=== PATIENT | female | born 1955 | race Caucasian/White ===

== ENCOUNTER 2016-05-18 10:15 | Inpatient (IN) | payer MEDICARE, MEDICAID ==
[~2016-05-18] VITALS: Ht 157.5 cm; Wt 64.9 kg
--- NOTE | ~2016-05-18 | WRIGHTHP ---
[place], [place] PATIENT HISTORY AND PHYSICAL EXAM NAME: MYKE PAINTER [facility] #: [id number] UNIT #: [id number] ROOM: DOCTOR: DENISE XAVIER MD BIRTHDATE: [birth year] DOS: 05/24/2016 DATE OF SURGERY: 05/24/2016. HISTORY OF PRESENT ILLNESS: This patient is a 60-year-old white female, 3, para 3, status post hysterectomy who first was seen on 02/03/2016, with a chief complaint of urinary problems since 2007. The symptoms according to the patient progressively worsened sometimes with significant urge, sometimes she sits down and cannot void and at other times, she has classic stress incontinence. This is all complicated by the fact that she does have COPD which appears to be reasonably well controlled by the excellent efforts of both her PCP and Dr. Alba. The patient has had an excellent urologic workup. She also had had a history of recurrent urinary tract infections and the cystoscopy, ultrasound of the kidneys and bladder, etc., were all okay per urologist. Actually, the urologist recommended that she see a financial administrator to have her cystocele repaired. Another financial administrator had attempted several pessaries and fittings but without any significant relief or the ability to retain the pessary. The patient had been referred for a discussion and therapy recommendations. She subsequently underwent an exam, which revealed introital laxity. The vulva itself was normal. The vagina was normal, but does have a second degree cystocele. There was no significant enterocele or rectocele noted. Bimanual was normal except for a very tender bladder. At that time, she had a PUF questionnaire, which equaled 17 and as I explained to the patient, we needed to be sure that she did not have any underlying interstitial cystitis before we were to make any effort at correcting the cystocele and stress incontinence. The patient subsequently underwent a KCl challenge and this was quite positive. She has now completed her interstitial cystitis rescues and is feeling much better at least in terms of some of the urgency and the pain aspect, but now she is ready to have the repair in terms of trying to help with her stress incontinence. I thoroughly explained the risks and benefits, indication, potential complications and alternatives, especially in light of her COPD and in light of the fact that at the very least, she has a mixed incontinence issue with both urge and stress. I cannot disagree that there is a first to second degree midline cystocele, which we will correct, but the patient needs to understand that the actual outcome may not be exactly as we all hope, but I certainly think that this will be much better than it has been, and the patient has been adamant since her January appointment to have this vaginal laxity and stress incontinence repaired to the best of our ability. To that end, the patient has signed the consent to having an anterior repair, suprapubic TVT and cystoscopy. I doubt seriously that we will do any type of posterior repair, but I have told the patient that we will examine this aspect once we have done the anterior repair and make a decision at the time of surgery. She stated agreement to this. She will be admitted actually the night before so that Dr. Alba can provide some respiratory therapies for her in preparation for surgery. She has also been cleared by Dr. Alba for the surgery pulmonary shipman. PAST MEDICAL HISTORY: Reveals a history of hysterectomy years ago. She had a negative mammogram in 2016. She has had a negative colonoscopy in the past. She has had 3 pregnancies and 3 vaginal deliveries. She has had right ear surgery, cholecystectomy, appendectomy and as I said, the hysterectomy. [place], [place] PATIENT HISTORY AND PHYSICAL EXAM [facility]: [id number] UNIT #: [id number] ROOM: DOCTOR: DENISE XAVIER MD BIRTHDATE: [birth year] SOCIAL HISTORY: Unbelievably the patient is still smoking even with the COPD, smoking about a half pack per day. She does drink alcohol socially. ALLERGIES: She states an allergy to IODINE. MEDICATIONS: The patient is taking several medications including DAZ 5 mg b.i.d. for anxiety, [place] 7.5 mg up to 4 times a day or p.r.n. for discomfort in her back from some vague back issues that she has. She takes Singulair 10 mg daily for allergies, Nasonex 50 mcg spray left and right 2 times a day again for allergies, Breo inhaler 1 time a day for COPD, Spiriva hand inhaler 1 time per day at bedtime and Ventolin solution 2 puffs every 4 hours p.r.n. REVIEW OF SYSTEMS: Stable. FAMILY HISTORY: Reveals her father from heart disease, her mother from COPD. PHYSICAL EXAMINATION: GENERAL: Pleasant white female. She is 5 feet 2 inches, 140 pounds, BMI 25.6. Blood pressure 130/88. HEENT: Stable. NECK: Stable. LUNGS: Stable. CARDIAC: Stable. PULMONARY: Status is consistent with a COPD, but she is moving air well and does not have any significant rales or rhonchi at this time and is in no significant pulmonary distress. ABDOMEN: Negative. EXTREMITIES: Grossly intact. NEUROLOGIC: Grossly intact. GENITOURINARY: External genitalia does reveal some mild introital laxity. She does have the second degree cystocele as I mentioned with no really significant enterocele or rectocele noted. Bimanual was negative and the bladder is no longer tender following the rescue therapy. Adnexa are not palpable. RECTAL: Negative. LABORATORY DATA: Stool Hematest negative. ASSESSMENT: The patient with a second-degree cystocele, mixed urge and stress urinary incontinence. History of IC now significantly improved, status post therapy, and a history of COPD, who is really quite stable per the efforts of Dr. Sheridan and certainly Dr. Alba. To that end, the patient will be brought into the hospital Tuesday evening, 05/23/2016 in preparation for the surgery on 05/24/2016 and has an anterior repair, suprapubic TVT and cystoscopy. [place], [place] PATIENT HISTORY AND PHYSICAL EXAM NAME: MYKE PAINTER UNIT #: [id number] ROOM: DOCTOR: DENISE XAVIER MD BIRTHDATE: [birth year] DENISE XAVIER MD CM:HISPHYS:PATIENT HISTORY AND PHYSICAL EXAMINATION [phone] LASHELL ALVARADO MD and GOLDEN XAVIER MD 05/19/16 4642 interface
--- NOTE | ~2016-05-18 | O ---
[place], [place] OPERATIVE NOTE [id number] UN[facility] #: [id number] ROOM: 503 DOCTOR: DENISE XAVIER MD BIRTHDATE: [birth year] DOS: 05/24/2016 PREOPERATIVE DIAGNOSES: 1. Second degree cystocele. 2. Stress urinary incontinence and interstitial cystitis. POSTOPERATIVE DIAGNOSES: 1. Second degree cystocele. 2. Stress urinary incontinence and interstitial cystitis. 3. Extremely atrophic vaginal tissue. SURGEON: Dr. Xavier and Dr. Persaud. ANESTHESIA: General. ESTIMATED BLOOD LOSS: Less than 50 mL. REPLACEMENTS: IV fluids, Ofirmev and Ancef. COMPLICATIONS: There were no complications. CONDITION: The patient's condition to recovery stable. OPERATIVE SUMMARY: The patient was taken to the operating room in supine position, general anesthesia, endotracheal intubation, lithotomy position, prepped and draped in routine manner. Mosquera catheter was placed and then weighted speculum was placed. The cystocele was partly anterior cystocele as well as an anterior component of a slight enterocele. Tissue itself was extremely atrophic. We did make a transverse incision just above the old vaginal cuff in that she was status post hysterectomy and then we made an incision perpendicular to this up to a point just inferior to the urethral meatus. We dissected the bladder and the vesicovaginal fascia free from the vaginal mucosa and dissected into the retropubic space bilaterally. I made 2 small suprapubic incisions and introduced our TVT introducers. We then removed the catheter and performed a thorough cystoscopy and revealed no evidence of any foreign body within the bladder. We then placed our TVT tape under no tension. Then made a series of interrupted 2-0 Vicryl sutures obliterated the cystocele and then trimmed the excess anterior vaginal mucosa and then closed this with a running locking 2-0 Vicryl suture. The tissue did tear on a number of occasions when placing the sutures, which necessitated number of additional interrupted 2-0 Vicryl sutures, but good hemostasis was achieved. We then placed Premarin cream and 1 inch iodoform packing. Once this was completed, we did clean the patient off. We then closed the 2 suprapubic incisions with 3-0 Monocryl suture and dressings were placed here as well. Once this was completed, the patient was taken out of lithotomy position, awakened, extubated, and transferred to recovery in stable condition with stable vital signs, good hemostasis, stable sponge and instrument count, and clear and plentiful urine output. [place], [place] OPERATIVE NOTE NAME: INOCENCIOMYKE Federico UNIT #: [id number] ROOM: [facility] DOCTOR: DENISE XAVIER MD BIRTHDATE: [birth year] DENISE XAVIER MD CM:OPRECORD:OPERATIVE NOTE [id number] GOLDEN XAVIER MD 05/24/16 0918 interface
--- NOTE | ~2016-05-18 | CON ---
[place], [place] REPORT OF CONSULTATION [id number] UNIT #: [id number] ROOM: 503 DOCTOR: CHIDI ALVARADO MD,LASHELL BIRTHDATE: [birth year] DOS: 05/24/2016 PULMONARY CONSULTATION EVALUATION AND MANAGEMENT REASON FOR CONSULTATION: For assessment of underlying COPD history with chronic hypoxic respiratory failure. CONSULTATION REQUESTED BY: Dr. Andrzej Lamb. HISTORY OF PRESENT ILLNESS: A 61-year-old white female who has been known with past medical history of end-stage COPD with chronic hypoxic respiratory failure, allergic rhinitis and others, has been currently admitted to the hospital under care of Dr. Andrzej Lamb for this patient on 05/23/2016. The patient was hospitalized for the medical management of bladder prolapse to have the anterior repair of the urinary bladder done. The patient was admitted to the hospital yesterday, started on nebulized bronchodilators. She underwent successful surgery this morning as she was assessed. The patient denies any symptoms of shortness of breath, which was acute. She was complaining of dryness of the mouth and stated that she is thirsty. Denies any sputum expectoration, wheezing or any chest pain. REVIEW OF SYSTEMS: CONSTITUTIONAL: Fatigue and tiredness noted, which was mild. Denies symptoms of fever or chills. EYES: Denies any burning, redness, or tenderness. EARS, NOSE, THROAT: No sore throat, hoarseness, otalgia, postnasal drainage. CARDIOVASCULAR: Denies anginal pain, edema of the lower extremities. GASTROINTESTINAL: Denies dysphagia, nausea, vomiting, diarrhea, abdominal pain, hematemesis, melena, or hematochezia. GENITOURINARY: The patient with current repair of a second degree stress urinary incontinence with interstitial cystitis and second degree cystocele repair. MUSCULOSKELETAL: Denies acute new joint pain, redness, or tenderness. SKIN: No lesions or rashes. CENTRAL NERVOUS SYSTEM: Denies dizziness, headache, diplopia or syncopal episodes. Remaining systems were reviewed with the patient, they were noted all negative. PAST MEDICAL HISTORY: The patient was known with history of: 1. Centrilobular emphysema. 2. Chronic hypoxic respiratory failure, use of oxygen intermittently. 3. History of uncomplicated severe persistent bronchial asthma. 4. Chronic pain syndrome. 5. Chronic nicotine abuse. 6. History of allergic rhinitis. 7. Anemia of chronic disease. 8. Gastroesophageal reflux. PAST SURGICAL HISTORY: [place], [place] REPORT OF CONSULTATION NAME: MYKE PAINTER UNIT #: [id number] ROOM: [facility] DOCTOR: CHIDI ALVARADO MD,LASHELL BIRTHDATE: [birth year] 1. Cholecystectomy. 2. Appendectomy. 3. Abdominal hysterectomy. 4. Bilateral breast biopsies. 5. Past therapeutic bronchoscopies. 6. EGD and colonoscopy. 7. Anterior repair for second degree cystocele for patient that was done on 05/24/2016. SOCIAL HISTORY: The patient lives at home. Currently not . Denies any history of alcohol use or illicit drug use. Tobacco use noted since teenager, pack of cigarettes per day and currently smokes 1-2 cigarettes a day. She was also noted with history of use of the beer, 2 or 3 beers use every day. FAMILY HISTORY: Father at the age of 5656 years old from complication of acute myocardial infarction, history about the mother was unknown. MEDICATIONS: Current administered medication was noted as use of Toradol, Tylenol, ibuprofen and others. All other previous home medication so far has been discontinued post-surgery. DRUG ALLERGIES: Noted as allergy to, 1. IVP DYE. 2. ATROPINE. PHYSICAL EXAMINATION: GENERAL: A 61-year-old female who has been noted currently awake and alert without any distress. The patient's height was recorded 5 feet 2 inches, weight of 143 pounds. BMI 26.3. VITAL SIGNS: Normal temperature, respirations 16-20, heart rate 73-80, blood pressure 121/65-102/50. Intake is 600, the output was not documented so far. The pulse oxygen saturation on room air 96% saturation recorded. HEENT: Examination shows head was atraumatic. Eyes nonicterus. NECK: Supple. CARDIOVASCULAR: S1, S2 audible. LUNGS: Noted with mild decreased breath sounds bilaterally without any wheezing or crackles. ABDOMEN: Soft, status post surgery. EXTREMITIES: Shows no edema, clubbing or cyanosis. CENTRAL NERVOUS SYSTEM: At this time, the patient noted somewhat drowsiness. Unable to perform all the central nervous system examination, however, noted without any focal deficit. SKIN: Visible skin showed no lesions or rashes. MUSCULOSKELETAL: Does not show any acute deformities. LABORATORY DATA: CBC on 05/18/2016 for patient preop was noted as normal. There were no other labs done for the patient recently. IMPRESSON: The patient who has been noted with history of centrilobular emphysema, noted advanced with history of allergic rhinitis, chronic [place], [place] REPORT OF CONSULTATION NAME: MYKE PAINTER UNIT #: [id number] ROOM: [facility] DOCTOR: CHIDI ALVARADO MD,LASHELL BIRTHDATE: [birth year] intermittent hypoxic respiratory failure, status post surgery and intervention. She does not have any signs and symptoms consistent with acute exacerbation of chronic obstructive pulmonary disease. Respiratory status has been noted quite stable for surgical intervention. PLAN OF TREATMENT: Using her home medication as previously ordered. She will be continued on bronchodilator to help mobilize secretion postoperatively. Use of incentive spirometry postoperatively as well. Further treatment changes will be done based on the progression of the illness. Usual care. All other supportive plan of management. Further treatment changes will be done from the pulmonary standpoint based on progression of the illness. LASHELL MURILLO MD CM:CONSTR:REPORT OF CONSULTATION 1100 05/24/16 1301 interface
[2016-05-23 18:30] VITALS: BP 125/63
[2016-05-23] MEDS ORDERED: BREO ELLIPTA 11 EACH IH (18:41)
[2016-05-23] MEDS ORDERED: FLUTICASON0.05 MG/AC NAS (18:42)
[2016-05-23] MEDS ORDERED: VENTOLIN H0.09 MG/AC INH (18:44)
[2016-05-23 20:00] VITALS: BP 121/71
[2016-05-24] VITALS (10 sets, daily range): BP systolic 100–121; BP diastolic 46–73
== END 2016-05-24 13:55 | disposition home or self-care (01) | DRG 748 ==
LOC: SDC 10:15 → 5E 05-23 18:17 → SDC 05-24 07:30 → EDSTATUS 05-24 10:15 → 5E 05-24 13:55
PROC: 0TJB8ZZ Inspection of Bladder, Via Natural or Artificial Opening Endoscopic (ICD-10-PCS; principal; 2016-05-24)
PROC: 0JQC0ZZ Repair Pelvic Region Subcutaneous Tissue and Fascia, Open Approach (ICD-10-PCS; principal; 2016-05-24)
PROC: 0TSC0ZZ Reposition Bladder Neck, Open Approach (ICD-10-PCS; principal; 2016-05-24)
DX: N81.10 Cystocele, unspecified (principal); J96.11 Chronic respiratory failure with hypoxia; J44.1 Chronic obstructive pulmonary disease with (acute) exacerbation; N39.46 Mixed incontinence; K21.9 Gastro-esophageal reflux disease without esophagitis; D63.8 Anemia in other chronic diseases classified elsewhere; F17.210 Nicotine dependence, cigarettes, uncomplicated; G89.4 Chronic pain syndrome; Z90.49 Acquired absence of other specified parts of digestive tract; Z90.710 Acquired absence of both cervix and uterus; Z82.49 Family history of ischemic heart disease and other diseases of the circulatory system; Z88.8 Allergy status to other drugs, medicaments and biological substances; Z91.041 Radiographic dye allergy status

== ENCOUNTER → 2016-05-18 | Outpatient (CLI) | payer MEDICARE, MEDICAID ==
[~2016-05-18] MED LIST: "\\\"BP PILL\\\""; ACCUNEB 0.0.63 MG/3 INH; ADVAIR 250/501 EA INH; ADVAIR DISKUS 21 DSK IH; ALBUTEROL0.09 MG/A2 IH; AMOXICILLIN500 M2 PO; CEFTIN500 M1 PO; CEFUROXIME AXE250 MG PO; CODEINE/GUAIFE120 M1 PO; Ciprofloxacin500 MG PO; DOXYCYCLINE100 M3 PO; FLOMAX0.4 MG PO; HYDROCODONE BIT1 T11 PO; HYDROCODONE/ACE1 T12 PO; HYDROCODONE/ACE1 TAB PO; LEVAQUIN500 M2 PO; LEVOFLOXACIN500 MG PO; MEDROL DOSEPAK4 MG PO; MUCINEX600 MG PO; NASONEX0.05 MG/AC NAS; NASONEX0.05 MG/AC NS; NORCO 7.5-3251 EACH PO; PREDNISONE10 MG PO; PREDNISONE20 MG PO; PYRIDIUM200 M1 PO; SINGULAIR10 MG PO; SPIRIVA -- 3018 MCG PO; SYMBICORT1 AE1 INH; VALIUM5 MG PO; VENTOLIN 02.5 MG/3 M INH; VICO75300 PO; Ventolin 02.5 MG/3 M INH; ZYRTEC10 MG PO
[2016-05-18 09:21] LABS: BASO % 0.4 % (0.0-1.0); EOS # 0.1 10*3/uL (0.0-0.4); HEMATOCRIT 40.2 % (37.0-47.0); HEMOGLOBIN 13.8 g/dl (12.0-16.0); LYMPH # 1.9 10*3/uL (1.3-4.4); LYMPH % 26.9 % (27.0-41.0); MEAN CELL VOLUME 96.6 fl (81.0-99.0); MEAN CORPUSCULAR HGB 33.2 pg (27.0-31.0); MEAN CORPUSCULAR HGB CONC 34.3 g/dl (33.0-37.0); MEAN PLATELET VOLUME 9.4 fl (9.6-12.3); MONO # 0.6 10*3/uL (0.1-1.0); MONO % 7.8 % (3.0-9.0); NEUT # 4.4 10*3/uL (2.3-7.9); NEUT % 62.6 % (47.0-73.0); PLATELET COUNT AUTOMATED 228 10*3/uL (130-400); RED BLOOD COUNT 4.16 10*6/uL (4.10-5.10); RED CELL DISTRI WIDTH 12.9 % (0-14.5)
== END | disposition home or self-care (01) ==
LOC: LAB 08:22
PROVIDERS: Obstetrics & Gynecology
DX: N81.11 Cystocele, midline (principal)

== ENCOUNTER 2016-11-16 10:35 | Inpatient (IN) | payer MEDICARE ==
[~2016-11-16] VITALS: Ht 160 cm; Wt 66.7 kg
--- NOTE | ~2016-11-16 | PR ---
[place], [place] PROGRESS NOTE NAME: MYKE PAINTER UNIT #: [id number] ROOM: 520 DOCTOR: CHIDI ALVARADO MD,LASHELL BIRTHDATE: [birth year] DOS: 11/18/2016 PULMONARY FOLLOWUP NOTE SUBJECTIVE: The patient has been noted with severe cough, which remains persistent with wheezing and shortness of breath unchanged from yesterday. She is n.p.o. past midnight for bronchoscopy. The patient was independently seen and examined in [id number] encounter. The history was confirmed. Physical examination performed. Labs were reviewed. Assessment and management changes of the patient personally made for today's visit. The note done by the medical scheduler was approved. PHYSICAL EXAMINATION: VITAL SIGNS: Noted essentially normal vital signs this morning. The pulse oxygen saturation recorded at 8:00 a.m. on room air was 98% saturation. LUNGS: Noted with decreased breath sounds with expiratory wheezing, no crackles. ABDOMEN: Soft, nontender. LABORATORY DATA: BMP: CO2 of 20, remaining BMP was normal today. CBC was normal. IMPRESSION: The patient with ongoing acute exacerbation of chronic obstructive pulmonary disease, severe nonproductive cough, retained secretions, mucus plugs of the airways and bronchitis, history of low-grade nicotine abuse. PLAN OF TREATMENT: Proceed with bronchoscopy as planned. Any decision changes in treatment if necessary will be done after bronchoscopy. LASHELL MURILLO MD CM:PNTRANS [phone] LASHELL ALVARADO MD 11/19/16 0308 interface
--- NOTE | ~2016-11-16 | PR ---
[place], [place] PROGRESS NOTE NAME: MYKE PAINTER UNIT #: [id number] ROOM: 520 DOCTOR: NATANAEL JAIME DO BIRTHDATE: [birth year] DOS: 11/19/2016 SUBJECTIVE: The patient was seen and evaluated this morning with Dr. Alba. The patient is alert, awake and responsive. No nausea, vomiting, diarrhea or lightheadedness. The patient states that her shortness of breath has improved and her cough has improved in bronchoscopy. OBJECTIVE: VITAL SIGNS: Temperature 97.8, pulse 83, respiratory rate 20, blood pressure 134/79 and pulse ox 97 on room air. HEENT: No changes. NECK: Supple. CARDIOVASCULAR: S1, S2 audible. RESPIRATORY: Decreased breath sounds at the bases. No rales, rhonchi or wheezing noted. EXTREMITIES: No clubbing, edema or cyanosis. SKIN: Warm and dry. LABORATORY DATA: White cell count of 4.8, hemoglobin 12.6, platelets 211. MICROBIOLOGY: Bronchial fungal, SONAL and fungal culture final shows no fungal elements. Bronchial culture and Gram stain, Gram stain preliminary shows few white blood cells, few epithelial, few gram-positive cocci in pairs and chains, grew gram-negative bacilli. Routine culture preliminary shows normal charels. ASSESSMENT: 1. Acute respiratory failure, improving. 2. Acute exacerbation of chronic obstructive pulmonary disease, improving. 3. Acute tracheobronchitis. 4. Severe nonproductive cough, improving. 5. Status post bronchoscopy yesterday. PLAN OF TREATMENT: 1. The patient will be continued on Levaquin, Mucinex, DuoNebs and steroids. 2. Await bronch cultures. 3. Possible discharge tomorrow. 4. Tobacco. The patient should abstain from tobacco. 5. Supportive care. NATANAEL JAIME DO [place], [place] PROGRESS NOTE NAME: MYKE PAINTER UNIT #: [id number] ROOM: 520 DOCTOR: NATANAEL JAIME DO BIRTHDATE: [birth year] LASHELL ALBA MD CM:MARTHA [phone] NATANAEL JAIME DO 11/19/16 1117 interface
--- NOTE | ~2016-11-16 | PROC NOTE ---
[place], [place] PROCEDURE NOTE NAME: MYKE PAINTER UNIT #: [id number] ROOM: 520 DOCTOR: CHIDI ALVARADO MD,LASHELL BIRTHDATE: [birth year] DOS: 11/18/2016 PREOPERATIVE DIAGNOSES: Persistent severe ineffective cough, sputum expectoration with wheezing and shortness of breath. POSTOPERATIVE DIAGNOSES: Removal of large plugs of mucus from the endobronchial tree bilaterally. There were no endobronchial obstructive lesions. PROCEDURE DESCRIPTION: Informed consent obtained for the patient. The patient was brought to the OR and placed in supine position. Conscious sedation administered by the Anesthesia Department. After achieving appropriate sedation, airway introduced into the mouth. Bronchoscope advanced into the airway into laryngeal area. Epiglottis and vocal cords were seen. The vocal cords were moving symmetrically with movements. Bronchoscope advanced through the vocal cord and tracheal lumen. Tracheal lumen noted with copious amount of thick plugs of the mucus with purulent secretion mixture suctioned out of the gaby level. Gaby noted sharp. Moderate impaction of the thick plugs of the mucus noted right upper, right middle, left upper, lingular lower lobe bronchi. All secretions suctioned out and sent for cultures. Procedure well tolerated by the patient without difficulty. Postoperative findings will be discussed with the patient once the patient recovers the effects of acute sedation. LASHELL MURILLO MD CM:PROCNOTE:PROCEDURE NOTE [id number] LASHELL ALVARADO MD
--- NOTE | ~2016-11-16 | PR ---
[place], [place] PROGRESS NOTE NAME: MYKE PAINTER UNIT #: [id number] ROOM: 520 DOCTOR: CHIDI ALVARADO MD,LASHELL BIRTHDATE: [birth year] DOS: 11/20/2016 SUBJECTIVE: The patient has been noted comfortable at this time. The shortness of breath and cough all symptoms have been improving progressively. OBJECTIVE: VITAL SIGNS: Normal temperature, respiratory rate 20, heart rate 83, blood pressure 151/89. The pulse oxygen saturation on room air was noted as 96% saturation. HEENT: Examination shows no acute change. NECK: Supple. CARDIOVASCULAR: S1, S2 audible. LUNGS: Noted without any wheezing or crackles. Breath sounds are noted [id number] decreased bilaterally. ABDOMEN: Soft, nontender. IMPRESSION: The patient was being currently noted with resolution of acute exacerbation of chronic obstructive pulmonary disease, progressively with resolving acute bronchitis. PLAN OF TREATMENT: The patient could be discharged home on oral medications as antibiotics and tapering prednisone. Outpatient followup for this patient to be scheduled post-discharge. LASHELL MURILLO MD CM:PNTRANS [phone] LASHELL ALVARADO MD 11/22/16 0516 interface
--- NOTE | ~2016-11-16 | CON ---
[place], [place] REPORT OF CONSULTATION NAME: MYKE PAINTER [facility] #: [id number] UNIT #: [id number] ROOM: 520 DOCTOR: LASHELL RAMIREZ MD BIRTHDATE: [birth year] DOS: 11/17/2016 REQUESTING PHYSICIAN: Hospitalist services. REASON FOR CONSULTATION: To assess the patient for ongoing acute respiratory complaints. HISTORY OF PRESENT ILLNESS: A 61-year-old female who has been known to me from the past. The patient stated that she has developed increased respiratory symptoms in the last few days, started with upper respiratory tract infection noted with progressive worsening of the respiratory symptom. She has been noted with symptoms of increased cough which became nonproductive at this time and described to be quite severe. She has not been able to sleep. The cough has been present with lying down as well as sitting up position. The cough has been noted episodic. The coughing was associated with symptoms of wheezing as well as increased shortness of breath. She was complaining of generalized fatigue. There are no symptoms of hemoptysis. REVIEW OF SYSTEMS: CONSTITUTIONAL: Fatigue and tiredness noted without symptoms of fever or chills. EYES: Denies any burning, redness, or tenderness. EARS, NOSE, AND THROAT: No sore throat, hoarseness, otalgia, postnasal drainage. CARDIOVASCULAR: Denies anginal pain, edema or pain of the lower extremities. GASTROINTESTINAL: Denies dysphagia, nausea, vomiting, diarrhea, abdominal pain, hematemesis, melena, or hematochezia. SKIN: Denies lesions or rashes. MUSCULOSKELETAL: Denies acute joint pain, redness, or tenderness. Remaining systems were reviewed, they were noted all negative. PAST MEDICAL HISTORY: 1. Advanced centrilobular emphysema. 2. Chronic hypoxic respiratory failure. 3. Generalized anxiety disorder. 4. 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 5. History of allergic rhinitis. 6. Anemia of chronic disease. 7. Gastroesophageal reflux. 8. Uncomplicated severe persistent bronchial asthma. PAST SURGICAL HISTORY: 1. Cholecystectomy. 2. Appendectomy. 3. Abdominal hysterectomy. 4. Bilateral breast biopsy, which were benign. 5. Past therapeutic bronchoscopies. 6. EGD and colonoscopy. 7. Anterior repair of the patient's second degree cystocele on 05/24/2016. [place], [place] REPORT OF CONSULTATION NAME: MYKE PAINTER UNIT #: [id number] ROOM: 520 DOCTOR: CHIDI ALVARADO MD,LASHELL BIRTHDATE: [birth year] SOCIAL HISTORY: The patient lives at home, currently not , lives with a boyfriend. Denies history of alcohol use or any illicit drug. Tobacco use was noted since teenager, pack of cigarettes per day. Currently smoking 1-3 cigarettes a day. The patient also uses 2-3 of beers a day. FAMILY HISTORY: The patient's father at age 56 of complications of acute myocardial infarction, history about mother was unknown. DRUG ALLERGIES: NOTED ALLERGIES TO IVP DYE AND ATROPINE. CURRENT MEDICATIONS: 1. Noted use of Singulair, Mucinex 1200 mg b.i.d. 2. Zyrtec. 3. Lovenox 40 mg, DVT prophylaxis. 4. Fluticasone. 5. Solu-Medrol 60 mg IV b.i.d. 6. DuoNeb q.4 hours. 7. Levaquin intravenously and other p.r.n. medications administration. PHYSICAL EXAMINATION: GENERAL: This is a 61-year-old female who has been currently noted awake and alert without any distress, severe coughing noted at the time of the assessment intermittently without any sputum expectoration. VITAL SIGNS: Height of 5 feet 3 inches, weight of 147 pounds. The vital signs of the patient which were recorded showed the temperature noted normal, respiratory rate 18-20, heart rate of 103-95, blood pressure 147/85-134/61. HEENT: Examination shows head was atraumatic. Eyes, no icterus. Well-fitting dentures. NECK: Supple. CARDIOVASCULAR SYSTEM: S1, S2 audible. LUNGS: Diffuse reduction in breath sounds with moderate expiratory wheezing. No crackles. ABDOMEN: Soft, nontender. LABORATORY DATA: CMP of patient that was done yesterday showed normal BUN and creatinine at this time. Sodium 129. CO2 of 20. The CBC of the patient that was done shows hemoglobin and hematocrit was normal. WBC count was normal. The chest x-ray of the patient that was done on 11/16/2016, was noted without any acute abnormalities, severe COPD, changes of emphysema were noted. Lactic acid 2.5 on admission and later on noted 1.8. PT and PTT of the patient this morning was noted as normal. BMP for this patient was noted as normal. IMPRESSION: 1. The patient will be currently admitted to the hospital noted with worsening acute respiratory symptoms, acute exacerbation of chronic obstructive pulmonary disease, acute tracheobronchitis, severe nonproductive cough, suspected mucus impaction of the major airways. 2. Past history noted for use of beer and low grade tobacco use as well. PLAN OF MANAGEMENT: The patient has been currently planned for fiberoptic [place], [place] REPORT OF CONSULTATION NAME: MYKE PAINTER UNIT #: [id number] ROOM: [facility] DOCTOR: CHIDI ALVARADO MD,LASHELL BIRTHDATE: [birth year] bronchoscopy, which will be done tomorrow morning. The risks and benefits were told to the patient. She is agreeable for the procedure. Continue current dose of steroids, bronchodilators, and antibiotics. No changes need to be made. Abstinence from tobacco and alcohol use was recommended. Other supportive therapy, plan and management and care. Additional treatment changes to be made for this patient based on progression of the illness. LASHELL MURILLO MD CM:CONSTR:REPORT OF CONSULTATION 1210 11/18/16 0613 interface
--- NOTE | ~2016-11-16 | PR ---
[place], [place] PROGRESS NOTE NAME: MYKE PAINTER UNIT #: [id number] ROOM: 520 DOCTOR: NATANAEL JAIME DO BIRTHDATE: [birth year] DOS: 11/18/2016 SUBJECTIVE: The patient was seen and evaluated this morning with Dr. Alba. The patient is alert, awake and responsive. No nausea, vomiting, diarrhea, or lightheadedness. The patient denies of mild cough. OBJECTIVE: VITAL SIGNS: Temperature normal, pulse of 102, respiratory rate 20, blood pressure of 140/72, pulse of 94 on room air. HEENT: Shows no changes. NECK: Supple. CARDIOVASCULAR: S1, S2 audible. RESPIRATORY: Shortness of breath, cough noted. LUNGS: Diminished at the bases. Mild expiratory wheezing. EXTREMITIES: No clubbing, no edema or cyanosis. SKIN: Warm and dry. LABORATORY DATA: BUN 10, creatinine 0.87. White cell of 4.8, hemoglobin of 12.6, platelets of 211. Bronchoscopy cultures are pending. ASSESSMENT: 1. Acute respiratory failure. 2. Acute exacerbation of chronic obstructive pulmonary disease. 3. Acute tracheobronchitis. 4. Severe nonproductive cough. 5. Suspected mucus infection in major airways, improved post bronchoscopy. 6. Status post bronchoscopy this morning. PLAN OF TREATMENT: 1. The patient will be continued on current dose of steroids, bronchodilators and antibiotics. 2. Abstinence from tobacco and alcohol recommended. 3. The patient is status post bronchoscopy, which showed mucus plug and tracheobronchitis. 4. Supportive care. NATANAEL JAIME DO [place], [place] PROGRESS NOTE NAME: MYKE PAINTER UNIT #: [id number] ROOM: 520 DOCTOR: NATANAEL JAIME DO BIRTHDATE: [birth year] LASHELL ALBA MD CM:PNBENEDICT [id number] [id number] NATANAEL JAIME DO 11/18/16 1602 interface
--- NOTE | ~2016-11-16 | PR ---
[place], [place] PROGRESS NOTE NAME: MYKE PAINTER UNIT #: [id number] ROOM: 520 DOCTOR: CHIDI ALVARADO MD,LASHELL BIRTHDATE: [birth year] DOS: 11/19/2016 SUBJECTIVE: The patient was independently seen and examined on 11/19/2016. History was performed. Physical exam was performed. All the labs were reviewed. The assessment, management personally made for today's visit. The note done by the senior medical billing specialist was approved. The patient has been noted with reduction of respiratory symptom after bronchoscopy. Findings of the bronchoscopy were discussed with the patient today in detail. She has been continued on intravenous antibiotics, bronchodilators and corticosteroids. OBJECTIVE: VITAL SIGNS: For the patient which were recorded shows normal temperature, respiratory rate of 20, heart rate 81, blood pressure 127/71, pulse oxygen saturation on room air was 93% saturation. HEENT: Showed no acute change. NECK: Supple. CARDIOVASCULAR: S1, S2 audible. LUNGS: The patient was noted without any wheeze or crackles at this time. Breath sounds are noted moderately decreased bilaterally. There were no crackles. ABDOMEN: Soft, nontender. LABORATORY DATA: The cultures of the bronchial washing preliminary was noted as normal charles. The final culture results was pending of the bronchial washings of yesterday. Gram stain was noted for this patient as few white blood cells, epithelial cells, gram-positive cocci in pairs and chains and gram-negative bacilli. PLAN OF MANAGEMENT: Reduced Solu-Medrol 40 mg b.i.d. from today. Consider possible discharge in the morning based on the culture results. Continuation of bronchodilator treatment plan and management as well. Usual care. Supportive therapy, plan of care and treatments. LASHELL MURILLO MD CM:PNTRANS [id number] [id number] LASHELL ALVARADO MD 11/20/16 0044 interface
--- NOTE | ~2016-11-16 | EKG ---
[place], [place] ELECTROCARDIOGRAM REPORT NAME: MYKE PAINTER UNIT #: [id number] ROOM: [facility] DOCTOR: CHIDI ALVARADO MD,LASHELL BIRTHDATE: [birth year] DOS: 11/16/2016 ELECTROCARDIOGRAM REPORT TIME: 11:52 AM. The heart rate was noted at 96 beats per minute without any abnormalities noted in the EKG otherwise. LASHELL MURILLO MD CM:EKGRPT:ELECTROCARDIOGRAM REPORT 1249 1455 LASHELL ALVARADO MD
[~2016-11-16 10:35] MED LIST changes: +BREO ELLIPTA 11 EACH IH; +FLUTICASON0.05 MG/AC NAS; +VENTOLIN H0.09 MG/AC INH
[2016-11-16 10:44] VITALS: BP 147/85
[2016-11-16 11:10] LABS: BASO % 0.4 % (0.0-1.0); EOS % 0.2 % (1.0-4.0); HEMATOCRIT 39.7 % (37.0-47.0); HEMOGLOBIN 13.6 g/dl (12.0-16.0); LYMPH # 1.3 10*3/uL (1.3-4.4); LYMPH % 24.4 % (27.0-41.0); MEAN CELL VOLUME 97.5 fl (81.0-99.0); MEAN CORPUSCULAR HGB 33.4 pg (27.0-31.0); MEAN CORPUSCULAR HGB CONC 34.3 g/dl (33.0-37.0); MEAN PLATELET VOLUME 9.2 fl (9.6-12.3); MONO # 0.7 10*3/uL (0.1-1.0); MONO % 12.3 % (3.0-9.0); NEUT # 3.3 10*3/uL (2.3-7.9); NEUT % 62.5 % (47.0-73.0); PLATELET COUNT AUTOMATED 196 10*3/uL (130-400); RED BLOOD COUNT 4.07 10*6/uL (4.10-5.10); RED CELL DISTRI WIDTH 12.9 % (0-14.5); WHITE BLOOD COUNT 5.3 10*3/uL (4.8-10.8)
[2016-11-16 11:21] LABS: ACT PARTIAL THROMBO TIME 27.6 SECONDS (20.8-31.5); INTERNATIONAL NORM RATIO 0.9 (2.0-3.5)
[2016-11-16 11:26] LABS: ALBUMIN 3.4 gm/dl (3.1-4.5); ALKALINE PHOSPHATASE 105 U/L (45-117); BUN 6 mg/dl (7-24); CHLORIDE 96 mmol/L (98-107); CREATININE 0.76 mg/dL (0.55-1.02); LIPASE 93 U/L (73-393); MAGNESIUM 1.9 mg/dL (1.5-2.1); POTASSIUM 3.5 mmol/L (3.5-5.1); SGOT/AST 34 IU/L (3-35); SGPT/ALT 47 U/L (12-78); SODIUM 129 mmol/L (136-145); TOTAL PROTEIN 7.1 gm/dL (6.4-8.2); TROPONIN I < 0.015 ng/ml (<0.045)
[2016-11-16 12:22] VITALS: BP 137/75
[2016-11-16 13:14] VITALS: BP 134/73
[2016-11-16 13:15] VITALS: BP 134/73
[2016-11-16 17:03] VITALS: BP 133/65
[2016-11-16 20:34] VITALS: BP 130/69
[2016-11-17] VITALS: BP 126/72
[2016-11-17 07:17] LABS: HEMATOCRIT 37.3 % (37.0-47.0); HEMOGLOBIN 12.5 g/dl (12.0-16.0); LYMPH % 35.8 % (27.0-41.0); MEAN CELL VOLUME 98.9 fl (81.0-99.0); MEAN CORPUSCULAR HGB 33.2 pg (27.0-31.0); MEAN CORPUSCULAR HGB CONC 33.5 g/dl (33.0-37.0); MEAN PLATELET VOLUME 9.2 fl (9.6-12.3); MONO # 0.4 10*3/uL (0.1-1.0); MONO % 13.6 % (3.0-9.0); NEUT # 1.3 10*3/uL (2.3-7.9); NEUT % 50.6 % (47.0-73.0); PLATELET COUNT AUTOMATED 184 10*3/uL (130-400); RED BLOOD COUNT 3.77 10*6/uL (4.10-5.10); WHITE BLOOD COUNT 2.7 10*3/uL (4.8-10.8)
[2016-11-17 07:50] LABS: ACT PARTIAL THROMBO TIME 22.3 SECONDS (20.8-31.5); INTERNATIONAL NORM RATIO 0.9 (2.0-3.5)
[2016-11-17 07:58] LABS: BUN 7 mg/dl (7-24); CHLORIDE 109 mmol/L (98-107); CHOLESTEROL 185 mg/dL (<200); CREATININE 0.78 mg/dL (0.55-1.02); FREE T4 0.63 ng/dl (0.76-1.46); HDL CHOLESTEROL 71 mg/dl (40-60); LDL CHOLESTEROL 103 mg/dL (9-159); MAGNESIUM 2.3 mg/dL (1.5-2.1); POTASSIUM 3.9 mmol/L (3.5-5.1); TRIGLYCERIDES 57 mg/dl (<150); VLDL CHOLESTEROL 11 mg/dL (6-40)
[2016-11-17 08:00] VITALS: BP 134/61
[2016-11-17 08:08] LABS: SODIUM 141 mmol/L (136-145)
[2016-11-17 12:00] VITALS: BP 128/60
[2016-11-17 16:00] VITALS: BP 118/76
[2016-11-17 20:00] VITALS: BP 118/70
[2016-11-18] VITALS (8 sets, daily range): BP systolic 103–144; BP diastolic 57–94
[2016-11-18 08:19] LABS: HEMOGLOBIN 12.6 g/dl (12.0-16.0); LYMPH % 20.6 % (27.0-41.0); MEAN CORPUSCULAR HGB 34.1 pg (27.0-31.0); MEAN CORPUSCULAR HGB CONC 34.1 g/dl (33.0-37.0); MEAN PLATELET VOLUME 9.4 fl (9.6-12.3); MONO # 0.4 10*3/uL (0.1-1.0); MONO % 9.1 % (3.0-9.0); NEUT # 3.4 10*3/uL (2.3-7.9); NEUT % 69.7 % (47.0-73.0); PLATELET COUNT AUTOMATED 211 10*3/uL (130-400); RED CELL DISTRI WIDTH 13.2 % (0-14.5); WHITE BLOOD COUNT 4.8 10*3/uL (4.8-10.8)
[2016-11-18 08:50] LABS: BUN 10 mg/dl (7-24); CHLORIDE 110 mmol/L (98-107); CREATININE 0.87 mg/dL (0.55-1.02); POTASSIUM 4.2 mmol/L (3.5-5.1); SODIUM 142 mmol/L (136-145)
[2016-11-19] VITALS: BP 127/71
[2016-11-19 08:00] VITALS: BP 134/79
[2016-11-19 12:00] VITALS: BP 120/83
[2016-11-19 16:00] VITALS: BP 142/66
[2016-11-19 17:06] LABS: ACID FAST SMEAR Negative (.); ACID FAST SPEC PROCESSING Concentration (.)
[2016-11-19 20:00] VITALS: BP 119/62
[2016-11-20] VITALS: BP 135/64
[2016-11-20 08:00] VITALS: BP 151/89
[2016-11-20] MEDS ORDERED: LEVAQUIN500 M2 PO (10:25)
[2016-11-20] MEDS ORDERED: PREDNISONE10 MG PO (10:25)
[2016-11-20] MEDS ORDERED: VITAMIN D31000 UNIT PO (11:51)
== END 2016-11-20 11:50 | disposition home or self-care (01) | DRG 871 ==
LOC: ED 10:35 → EDHOLD 12:09 → 5E 12:09
PROVIDERS: Emergency Medicine; Family Medicine; Internal Medicine; Internal Medicine Critical Care Medicine; ADMIT Internal Medicine
PROC: 0BC88ZZ Extirpation of Matter from Left Upper Lobe Bronchus, Via Natural or Artificial Opening Endoscopic (ICD-10-PCS; principal; 2016-11-18)
PROC: 0BC78ZZ Extirpation of Matter from Left Main Bronchus, Via Natural or Artificial Opening Endoscopic (ICD-10-PCS; principal; 2016-11-18)
PROC: 0BC48ZZ Extirpation of Matter from Right Upper Lobe Bronchus, Via Natural or Artificial Opening Endoscopic (ICD-10-PCS; principal; 2016-11-18)
PROC: 0BC38ZZ Extirpation of Matter from Right Main Bronchus, Via Natural or Artificial Opening Endoscopic (ICD-10-PCS; principal; 2016-11-18)
PROC: 0BCB8ZZ Extirpation of Matter from Left Lower Lobe Bronchus, Via Natural or Artificial Opening Endoscopic (ICD-10-PCS; principal; 2016-11-18)
PROC: 0BC98ZZ Extirpation of Matter from Lingula Bronchus, Via Natural or Artificial Opening Endoscopic (ICD-10-PCS; principal; 2016-11-18)
PROC: 0BC68ZZ Extirpation of Matter from Right Lower Lobe Bronchus, Via Natural or Artificial Opening Endoscopic (ICD-10-PCS; principal; 2016-11-18)
PROC: 0BC58ZZ Extirpation of Matter from Right Middle Lobe Bronchus, Via Natural or Artificial Opening Endoscopic (ICD-10-PCS; principal; 2016-11-18)
PROC: 0BC18ZZ Extirpation of Matter from Trachea, Via Natural or Artificial Opening Endoscopic (ICD-10-PCS; principal; 2016-11-18)
DX: A41.9 Sepsis, unspecified organism (principal); J18.9 Pneumonia, unspecified organism; J96.00 Acute respiratory failure, unspecified whether with hypoxia or hypercapnia; J44.1 Chronic obstructive pulmonary disease with (acute) exacerbation; J44.0 Chronic obstructive pulmonary disease with (acute) lower respiratory infection; E87.1 Hypo-osmolality and hyponatremia; F41.1 Generalized anxiety disorder; K21.9 Gastro-esophageal reflux disease without esophagitis; J45.50 Severe persistent asthma, uncomplicated; R65.20 Severe sepsis without septic shock; E87.8 Other disorders of electrolyte and fluid balance, not elsewhere classified; J20.9 Acute bronchitis, unspecified; E83.39 Other disorders of phosphorus metabolism; F17.210 Nicotine dependence, cigarettes, uncomplicated; E83.41 Hypermagnesemia; Z71.6 Tobacco abuse counseling; Z90.710 Acquired absence of both cervix and uterus; Z90.49 Acquired absence of other specified parts of digestive tract; Z82.49 Family history of ischemic heart disease and other diseases of the circulatory system; Z83.6 Family history of other diseases of the respiratory system; Z91.041 Radiographic dye allergy status; Z88.8 Allergy status to other drugs, medicaments and biological substances; Z79.899 Other long term (current) drug therapy

== ENCOUNTER 2017-02-19 20:55 | Inpatient (IN) | payer MEDICARE ==
[~2017-02-19] VITALS: Ht 160 cm; Wt 70.3 kg
--- NOTE | ~2017-02-19 | PROC NOTE ---
[place], [place] PROCEDURE NOTE NAME: MYKE PAINTER UNIT #: [id number] ROOM: 521 DOCTOR: CHIDI ALVARADO MD,LASHELL BIRTHDATE: [birth year] DOS: 02/24/2017 PROCEDURE: Bronchoscopy. PREOPERATIVE DIAGNOSES: Persistent severe nonproductive cough with musculoskeletal pain. The patient unable to expectorate sputum. Ongoing symptoms of tracheobronchitis with exacerbation of chronic obstructive pulmonary disease and wheezing. POSTOPERATIVE DIAGNOSES: The patient with evidence of [id number] impaction of the mucus plugs noted endobronchial tree bilaterally with finding of acute tracheobronchitis. No endobronchial obstructive lesion. BLOOD LOSS: None. PROCEDURE DESCRIPTION: Informed consent was obtained for the patient. She was brought to the OR and placed in supine position. Conscious sedation administered by the Anesthesia Department. After achieving proper sedation, airway introduced into the mouth. Bronchoscope advanced to the airway into the laryngeal area. Epiglottis vocal cord seen, which were moving symmetrically with movements. Bronchoscope advanced to the vocal cord and tracheal lumen. Tracheal lumen noted with moderate amount of thick mucoid secretion with some purulent secretions suctioned out the britni level. Right upper, right middle, right lower, left upper, lingular lower lobe bronchi were all examined. The mucus impaction clear of endobronchial tree bilaterally. The patient without any difficulty. Procedure was well tolerated by the patient. Postoperative finding was discussed with one of the patient's daughter in detail in the recovery room. No change in the treatment at this time will be recommended with the current bronchoscopy. LASHELL MURILLO MD CM:PROCNOTE:PROCEDURE NOTE 1248 1653 LASHELL ALVARADO MD
--- NOTE | ~2017-02-19 | EKG ---
[place], [place] ELECTROCARDIOGRAM REPORT NAME: MYKE PAINTER UNIT #: [id number] ROOM: 521 DOCTOR: CHIDI ALVARADO MD,LASHELL BIRTHDATE: [birth year] DOS: 02/23/2017 TIME: 10:25 a.m. Normal sinus rhythm noted with heart rate of 62 beats per minute without any acute electrocardiographic abnormality. The EKG would be considered normal. LASHELL MURILLO MD CM:EKGRPT:ELECTROCARDIOGRAM REPORT 1818 1859 LASHELL ALVARADO MD
--- NOTE | ~2017-02-19 | PR ---
[place], [place] PROGRESS NOTE NAME: MYKE PAINTER UNIT #: [id number] ROOM: 521 DOCTOR: CHIDI ALVARADO MD,LASHELL BIRTHDATE: [birth year] DOS: 02/25/2017 SUBJECTIVE: The patient had a bronchoscopy done yesterday with significant reduction and improvement of the respiratory symptoms. She has not been noted symptoms of chest pain or abdominal pain. Coughing has been noted markedly improved as well. OBJECTIVE: VITAL SIGNS: For the patient which has been recorded showed normal temperature, respiratory rate 19, heart rate 73, blood pressure 157/77, pulse oxygen saturation on 2 L nasal cannula with 96% saturation. HEENT: No acute change. NECK: Supple. CARDIOVASCULAR: S1, S2 audible. LUNGS: The patient was noted with mild expiratory wheezing at this time with moderate decreased breath sounds otherwise. ABDOMEN: Soft, nontender. Bowel sounds present. EXTREMITIES: Without any acute edema. LABORATORY DATA: Cultures of the bronchial washing preliminary noted with light growth of yeast. The Gram stain reviewed and noted with few white blood cell, few gram-positive cocci in clusters. Creatinine this morning was noted normal. CBC of the patient this morning essentially normal except elevation of MCV. IMPRESSION: Resolving acute tracheobronchitis, marked improvement and reduction of respiratory symptoms are noticed after the current bronchoscopy that was done yesterday. PLAN OF MANAGEMENT: Continue corticosteroids, bronchodilator, and antibiotics. Consideration for home discharge in the morning. LASHELL MURILLO MD CM:MARTHA [id number] LASHELL ALVARADO MD 02/26/17 0721 interface
--- NOTE | ~2017-02-19 | PR ---
[place], [place] PROGRESS NOTE NAME: MYKE PAINTER UNIT #: [id number] ROOM: 521 DOCTOR: CHIDI ALVARADO MD,LASHELL BIRTHDATE: [birth year] DOS: 02/21/2017 SUBJECTIVE: She has been noted comfortable at this time, still noted a cough with some sputum expectoration mostly noted nonproductive cough, shortness breath and wheezing was still described. OBJECTIVE: VITAL SIGNS: Normal temperature, respiratory rate 18, heart rate 107, blood pressure 135/76. Intake for the patient was recorded 1720 and 420 mL. Pulse oxygen saturation on 2 liters 96% saturation. HEAD, EARS, EYES, NOSE AND THROAT: No acute change. NECK: Supple. CARDIOVASCULAR: S1, S2 audible. LUNGS: Moderate decreased breath sound, diffuse expiratory wheezing, no crackles. ABDOMEN: Soft, nontender. EXTREMITIES: Without any edema. LABORATORY DATA: Culture of the sputum for the patient to normal charles from yesterday. The Gram stain of the patient 02/20/2017, moderate gram-positive cocci with epithelial cells and few gram-positive cocci in pairs and chains. BMP this morning, glucose 133, remaining electrolytes normal. CBC was normal. IMPRESSION: The patient with ongoing acute exacerbation of chronic obstructive pulmonary disease, acute tracheobronchitis without any significant change from yesterday, still remains symptomatic. The patient with ongoing wheezing. Mild steroid-induced hyperglycemia. PLAN OF MANAGEMENT: Monitoring the culture results of the sputum. Continuation of bronchodilator with oxygen supplementation, other plan of management as already ordered. Supportive care, other therapy, plan of management and care. LASHELL MURILLO MD CM:PNTRANS 1436 1526 LASHELL ALVARADO MD 02/21/17 1526 interface
--- NOTE | ~2017-02-19 | CON ---
[place], [place] REPORT OF CONSULTATION [id number] UN[facility] #: [id number] ROOM: 521 DOCTOR: LASHELL RAMIREZ MD BIRTHDATE: [birth year] DOS: 02/20/2017 The consultation requested by Hospitalist Service. REASON FOR CONSULTATION: For assessment of recurrence of respiratory symptoms of increased coughing, chest congestion and others. HISTORY OF PRESENT ILLNESS: A 61-year-old female patient has been known to me with past history of severe COPD, centrilobular emphysema, and low grade nicotine abuse. The patient presented to the Emergency Room and has been admitted to this hospital on 02/20/2017. She stated having symptoms of increased shortness of breath, associated with coughing with intermittent scant sputum expectoration, yellowish in color. Most of the cough has been noted as nonproductive except the chest congestion. She also described symptoms of wheezing, shortness of breath occurring with minimal exertion, walking on level surface. Denies any edema of the lower extremity. Denies symptoms of chest pain or any hemoptysis. REVIEW OF SYSTEMS: CONSTITUTIONAL: Noted with symptoms of fatigue, tiredness. Denied symptoms of fever or chills. Denies any abnormal weight loss. EYES: Denies any burning, redness, discharge or pain. EARS, NOSE, AND THROAT: No sore throat, hoarseness, otalgia, postnasal drainage or epistaxis. CARDIOVASCULAR: Denies angina pain, edema or pain of the lower extremity. GASTROINTESTINAL: Denies dysphagia, nausea, vomiting, diarrhea, abdominal pain, hematemesis, melena, or hematochezia. SKIN: Denies any lesions or rashes. CENTRAL NERVOUS SYSTEM: Denies seizures, tingling sensation or abnormal focal weakness. Remaining systems were reviewed, they were noted all negative. PAST MEDICAL HISTORY: 1. Noted with hospitalization in this hospital previously for acute exacerbation of chronic obstructive pulmonary disease, acute tracheobronchitis, and management was done in October 2016. The patient did have a therapeutic bronchoscopy at that time. 2. Uncomplicated severe persistent bronchial asthma. 3. Past history of advanced centrilobular emphysema/COPD and acute chronic hypoxic respiratory failure, use of oxygen on 2 liters nasal cannula with exertion and sleep. 4. History of partial alcohol and low grade nicotine dependence at this time. 5. Allergic rhinitis. 6. History of anemia of chronic disease. 7. Gastroesophageal reflux. PAST SURGICAL HISTORY: 1. Cholecystectomy. 2. Appendectomy. 3. Hysterectomy. [place], [place] REPORT OF CONSULTATION NAME: MYKE PAINTER UNIT #: [id number] ROOM: 521 DOCTOR: LASHELL RAMIREZ MD BIRTHDATE: [birth year] 4. Bilateral breast biopsies. 5. Therapeutic bronchoscopies in the past, last in October 2016. 6. EGD and colonoscopy. 7. Anterior repair of the patient's second degree cystocele on 05/24/2016. SOCIAL HISTORY: The patient is currently , lives at home with her boyfriend. Denies history of alcohol use, illicit drug use or any history of occupation related pulmonary exposure. She drinks 1-2 beers a day, still smokes about 3-4 cigarettes a day, used to smoke from teenage, at least a pack of cigarettes per day for many years until decreasing the current smoking to few cigarettes a day. FAMILY HISTORY: The patient's father at age 56 years of complication of myocardial infarction, history about mother unknown. HOME MEDICATIONS: 1. Breo Ellipta 100/5 one inhalation daily. 2. Incruse Ellipta 1 inhalation daily. 3. Flonase 1 spray each nostril b.i.d. 4. Zyrtec 10 mg p.o. daily. 5. Albuterol sulfate 2.5 mg p.r.n. with the nebulizer use 4 times a day for shortness of breath or other symptoms. DRUG ALLERGY HISTORY: ALLERGIES TO, 1. IVP DYE. 2. ATROPINE. PHYSICAL EXAMINATION: GENERAL: A 61-year-old female who has been noted currently awake and alert. Height of 5 feet 3 inches, weight 155 pounds, BMI 27.4. VITAL SIGNS: Normal temperature, respiratory rate range between 20-29, heart rate of 78-120, mild sinus tachycardia, blood pressure 146/76 to 138/68. Pulse oxygen saturation on 2 liters nasal cannula 96% saturation recorded. HEENT: Examination shows head was atraumatic. Eyes nonicterus. NECK: Supple. CARDIOVASCULAR: S1, S2 audible. LUNGS: General reduction in the breath sounds are noted in the lungs bilaterally with moderate expiratory wheezing without any crackles. ABDOMEN: Flat, soft, nontender. Bowel sounds present. CENTRAL NERVOUS SYSTEM: Cranial nerves 2-12 intact. No focal deficit. MUSCULOSKELETAL: No deformities visible. SKIN: No lesions or rashes. LABORATORY DATA: CBC on 02/19/2017 was noted essentially normal CBC except MCV of 101.4 related to chronic alcohol use. Lactic acid on admission 2.2. On 02/19/2017, BUN normal, creatinine was normal, glucose 116. RSV for this patient, the respiratory secretion was noted for this patient as negative. Influenza A and B, nasal washing antigens negative. Follow up lactic acid yesterday was normal. Troponin normal yesterday. CMP that was done this morning remains essentially normal. The PT, PTT this morning normal. CBC this [place], [place] REPORT OF CONSULTATION NAME: MYKE PAINTER UNIT #: [id number] ROOM: 521 DOCTOR: CHIDI ALVARADO MD,[facility] BIRTHDATE: [birth year] morning; WBC count 4.5, hemoglobin and hematocrit normal, platelet count was normal. Chest x-ray, one view was done for this patient that was personally reviewed, shows there was no finding of acute pulmonary infiltration, which was new. From the chest x-ray, severe COPD and emphysema changes were present. IMPRESSION: 1. The patient has been currently admitted to the hospital noted with recurrence of acute exacerbation of chronic obstructive pulmonary disease, acute bronchitis, most likely bacterial in origin; however, the viral etiology can be considered for this patient as well. 2. The patient with history of low-grade nicotine abuse as well as use of the alcohol ____. 3. History of chronic allergic rhinitis, gastroesophageal reflux and other medical illnesses. PLAN OF MANAGEMENT: At this time, the patient has been receiving the Mucinex 1200 mg b.i.d., Solu-Medrol 60 mg q.8 hours and DuoNeb every 4 hours that will be continued. Continue IV Rocephin and Zithromax. Obtain the respiratory viral panel for this patient as well for assessment of any viral etiology of current symptom. Continuation of other supportive therapy, plan and management. Usual care. Additional treatment changes continued to be made for this patient based on the progression of the illness. All other supportive plan of management and care. Nicotine replacement patch will be ordered as nicotine 7 mg patch applied to the skin daily. Monitor for any alcohol withdrawal as well. Thanks for allowing me to participate in the care of this patient. LASHELL MURILLO MD CM:CONSTR:REPORT OF CONSULTATION 1542 02/21/17 0143 interface
--- NOTE | ~2017-02-19 | EKG ---
[place], [place] ELECTROCARDIOGRAM REPORT NAME: MYKE PAINTER UNIT #: [id number] ROOM: 521 DOCTOR: CHDII ALVARADO MD,LASHELL BIRTHDATE: [birth year] DOS: 02/20/2017 Electrocardiogram done on 02/20/2017 at 2127 hour. IMPRESSION: Sinus tachycardia noted, heart rate 118 beats per minute. There were no electrocardiogram abnormalities noted. Possible right ventricular enlargement would be considered. LASHELL MURILLO MD CM:EKGRPT:ELECTROCARDIOGRAM REPORT 1822 1909 LASHELL ALVARADO MD
--- NOTE | ~2017-02-19 | PR ---
[place], [place] PROGRESS NOTE NAME: MYKE PAINTER UNIT #: [id number] ROOM: 521 DOCTOR: CHIDI ALVARADO MD,LASHELL BIRTHDATE: [birth year] DOS: 02/24/2017 SUBJECTIVE: She has been n.p.o. past midnight for bronchoscopy. Continued similar symptoms of coughing and wheezing. Denies any symptoms of chest pain. Shortness of breath was still noted with mild exertion. She was continued on corticosteroids, bronchodilators, and oxygen. OBJECTIVE: VITAL SIGNS: Normal temperature, respiratory rate 22, heart rate 93, and blood pressure 128/84. The pulse oxygen saturation on 2 liters nasal cannula 97% saturation. HEENT: Shows no acute change. NECK: Supple. CARDIOVASCULAR: S1, S2 audible. LUNGS: Moderate decreased breath sounds, persistent expiratory wheezing. No crackles. ABDOMEN: Soft, nontender. EXTREMITIES: Minimal ankle edema. SKIN: No lesions or rashes. MUSCULOSKELETAL: No gross deformities. CENTRAL NERVOUS SYSTEM: Cranial nerves 2-12 intact. IMPRESSION: The patient currently noted with ongoing persistent exacerbation of chronic obstructive pulmonary disease, acute tracheobronchitis with severe cough, wheezing, shortness of breath at this time reported with exertion, and chest tightness. Bronchoscopy to be done today. PLAN OF MANAGEMENT: No change in treatment at this time will be recommended. Continue current dose of bronchodilators, oxygen supplementation, and corticosteroids. We will monitor respiratory symptoms closely. Any modification in treatment if necessary will be done after bronchoscopy later today. LASHELL MURILLO MD CM:PNTRANS [id number] LASHELL ALVARADO MD 02/24/17 1644 interface
--- NOTE | ~2017-02-19 | PR ---
[place], [place] PROGRESS NOTE NAME: MYKE PAINTER UNIT #: [id number] ROOM: 521 DOCTOR: LASHELL RAMIREZ MD BIRTHDATE: [birth year] DOS: 02/23/2017 SUBJECTIVE: The patient has been noted comfortable at this time without any acute distress. She has been still noted coughing and wheezing and focused on the cough, patient stated is not getting better. She does have small amount of sputum expectoration with moderate severe cough. She complains of pain in the ribcage because of the cough. Denies symptoms of chest pain. There was no edema. There was no nausea and vomiting. OBJECTIVE: VITAL SIGNS: Which has been recorded shows a normal temperature, respiratory rate 18, heart rate 78, blood pressure 165/80. Pulse oxygen saturation. LUNGS: Noted to have wheezing without any changes from yesterday. ABDOMEN: Flat, soft, nontender. Bowel sounds present. EXTREMITIES: Without any edema. SKIN: Visible skin. No lesions or rashes. MUSCULOSKELETAL: No deformities. CENTRAL NERVOUS SYSTEM: Nonfocal. Cranial nerves 2-12 intact. LABORATORY DATA: Echocardiogram was done on 02/22/2017, reviewed by the Cardiology. Outpatient Dr. Carlos, the patient reported as normal left ventricle size and left ventricle systolic function as well as the right ventricular function. There were no valvular abnormalities reported. IMPRESSION: Ongoing acute exacerbation of chronic obstructive pulmonary disease with acute bronchitis, severe cough. The patient unable expectorate sputum with musculoskeletal chest pain, inability to expectorate sputum with current conducted therapy. Use of the Mucinex, bronchodilators, flutter valve and other medications. PLAN OF MANAGEMENT: The patient was recommended about therapeutic bronchoscopy to be done tomorrow morning with risk and benefits description. The patient agreed with the procedure, which appeared to be done in the morning. In the meantime, continue relatively high dose of corticosteroids. Continuation of current bronchodilators. Continue antibiotic based on the current cultures without any changes as normal charels was isolated. Other supportive therapy, plan of management and care. Usual treatment, other supportive plan of care. [place], [place] PROGRESS NOTE NAME: MYKE PAINTER UNIT #: [id number] ROOM: 521 DOCTOR: LASHELL RAMIREZ MD BIRTHDATE: [birth year] LASHELL MURILLO MD CM:MARTHA [id number] LASHELL ALVARADO MD 02/23/171936 interface
--- NOTE | ~2017-02-19 | PR ---
[place], [place] PROGRESS NOTE NAME: MYKE PAINTER UNIT #: [id number] ROOM: 521 DOCTOR: LASHELL RAMIREZ MD BIRTHDATE: [birth year] DOS: 02/22/2017 SUBJECTIVE: The patient admitted with some sputum expectoration. Denies symptoms of chest pain or any hemoptysis. She had been continued on nicotine replacement therapy as well. Denies any edema or pain of the lower extremities. OBJECTIVE: VITAL SIGNS: Shows normal temperature, respiratory rate 20, heart rate 95, blood pressure 140/84. The pulse oxygen saturation of the patient recorded as 95% saturation on 3 liters cannula. HEENT: No acute change. NECK: Supple. CARDIOVASCULAR: S1, S2 audible. LUNGS: Noted. Moderate expiratory wheezing. No crackles. ABDOMEN: Soft, nontender. EXTREMITIES: Without any edema. CENTRAL NERVOUS SYSTEM: Cranial nerves 2-12 intact. MUSCULOSKELETAL: No deformities. SKIN: No lesions or rashes. LABORATORY DATA: The culture of the sputum on 02/20/2017 was reviewed to be normal charles. CBC of this patient done today was reviewed shows a WBC count 7.8, hemoglobin and hematocrit normal, platelet count was completely normal. The BMP that was done this morning reviewed, showed a normal BMP. Blood culture from of this month, ____ showed no bacterial growth, final culture results were pending. IMPRESSION: Ongoing acute exacerbation of chronic obstructive pulmonary disease for this patient with acute tracheobronchitis was noted at the present time. The patient improvement has been noted only minimal if the patient at this time with current use of corticosteroids. PLAN OF MANAGEMENT: The patient would be continued on the corticosteroids. The dose has been increased by the primary care attending today 60 mg every 8 hours that will be continued. Continue bronchodilators every 4 hours and oxygen supplementation to maintain a saturation of 92% or greater. Continue nicotine placement patches. Additional treatment changes to be made for the patient based on the progression of the illness. [place], [place] PROGRESS NOTE NAME: MYKE PAINTER UNIT #: [id number] ROOM: 521 DOCTOR: LASHELL RAMIREZ MD BIRTHDATE: [birth year] LASHELL MURILLO MD CM:PNTRANS [phone] LASHELL ALVARADO MD 02/22/17 1717 interface
--- NOTE | ~2017-02-19 | PR ---
[place], [place] PROGRESS NOTE NAME: MYKE PAINTER UNIT #: [id number] ROOM: 521 DOCTOR: CHIDI ALVARADO MD,LASHELL BIRTHDATE: [birth year] DOS: 02/26/2017 SUBJECTIVE: The patient has been noted comfortable at this time without any distress. At this time, she continues to show reduction and improvement in respiratory symptoms, wheezing, shortness of breath and others. OBJECTIVE: VITAL SIGNS: Normal temperature, respiratory rate 20, heart rate 92, blood pressure 160/90, pulse oxygen saturation on room air 96% saturation. HEENT: No acute change. NECK: Supple. CARDIOVASCULAR: S1, S2 audible. LUNGS: Without any wheeze or crackles. Mild to moderate decreased breath sounds noted bilaterally. ABDOMEN: Soft, nontender. EXTREMITIES: Without any edema. LABORATORY DATA: Culture of bronchial washing with light growth of yeast. IMPRESSION: Resolving acute hypoxic respiratory failure with exacerbation of chronic obstructive pulmonary disease, acute bronchitis, progressively. PLAN OF MANAGEMENT: The patient has been assessed for home discharge and needing the oxygen supplementation, which has been arranged by the primary care physician prior to the discharge. In the meantime, continue the patient on other therapy, plan and management as in progress. Additional treatment changes need to be made based on progression of the illness. LASHELL MURILLO MD CM:PNTRANS [id number] LASHELL ALVARADO MD 02/27/173 interface
[~2017-02-19 20:55] MED LIST changes: +VITAMIN D31000 UNIT PO
[2017-02-19 21:00] VITALS: BP 146/76
[2017-02-19 21:35] LABS: BASO % 0.6 % (0.0-1.0); EOS # 0.1 10*3/uL (0.0-0.4); EOS % 0.8 % (1.0-4.0); HEMOGLOBIN 14.3 g/dl (12.0-16.0); LYMPH # 1.4 10*3/uL (1.3-4.4); LYMPH % 21.6 % (27.0-41.0); MEAN CELL VOLUME 101.4 fl (81.0-99.0); MEAN CORPUSCULAR HGB 33.7 pg (27.0-31.0); MEAN CORPUSCULAR HGB CONC 33.3 g/dl (33.0-37.0); MEAN PLATELET VOLUME 9.6 fl (9.6-12.3); MONO # 0.6 10*3/uL (0.1-1.0); MONO % 8.8 % (3.0-9.0); NEUT # 4.5 10*3/uL (2.3-7.9); PLATELET COUNT AUTOMATED 221 10*3/uL (130-400); RED BLOOD COUNT 4.24 10*6/uL (4.10-5.10); RED CELL DISTRI WIDTH 12.6 % (0-14.5); WHITE BLOOD COUNT 6.6 10*3/uL (4.8-10.8)
[2017-02-19 21:43] VITALS: BP 132/77
[2017-02-19 21:52] LABS: ALBUMIN 3.4 gm/dl (3.1-4.5); ALKALINE PHOSPHATASE 85 U/L (45-117); BUN 4 mg/dl (7-24); CHLORIDE 103 mmol/L (98-107); CREATININE 0.74 mg/dL (0.55-1.02); LIPASE 71 U/L (73-393); POTASSIUM 3.7 mmol/L (3.5-5.1); SGOT/AST 23 IU/L (3-35); SGPT/ALT 39 U/L (12-78); SODIUM 136 mmol/L (136-145); TOTAL PROTEIN 7.1 gm/dL (6.4-8.2)
[2017-02-19 21:54] LABS: TROPONIN I < 0.015 ng/ml (<0.045)
[2017-02-19 22:59] VITALS: BP 112/68
[2017-02-19 23:41] VITALS: BP 111/72
[2017-02-20 01:20] VITALS: BP 127/68
[2017-02-20 05:48] LABS: ALBUMIN 3.5 gm/dl (3.1-4.5); ALKALINE PHOSPHATASE 90 U/L (45-117); BUN 5 mg/dl (7-24); CHLORIDE 106 mmol/L (98-107); CHOLESTEROL 198 mg/dL (<200); CREATININE 0.78 mg/dL (0.55-1.02); HDL CHOLESTEROL 86 mg/dl (40-60); LDL CHOLESTEROL 99 mg/dL (9-159); PHOSPHOROUS 3.2 mg/dL (2.5-4.9); POTASSIUM 4.2 mmol/L (3.5-5.1); SGOT/AST 18 IU/L (3-35); SGPT/ALT 39 U/L (12-78); SODIUM 142 mmol/L (136-145); TOTAL PROTEIN 7.2 gm/dL (6.4-8.2); TRIGLYCERIDES 66 mg/dl (<150); VLDL CHOLESTEROL 13 mg/dL (6-40)
[2017-02-20 05:49] LABS: FREE T4 0.76 ng/dl (0.76-1.46)
[2017-02-20 05:53] LABS: TROPONIN I < 0.015 ng/ml (<0.045)
[2017-02-20 05:56] LABS: HEMATOCRIT 42.6 % (37.0-47.0); HEMOGLOBIN 13.8 g/dl (12.0-16.0); MEAN CELL VOLUME 104.4 fl (81.0-99.0); MEAN CORPUSCULAR HGB 33.8 pg (27.0-31.0); MEAN CORPUSCULAR HGB CONC 32.4 g/dl (33.0-37.0); MEAN PLATELET VOLUME 10.1 fl (9.6-12.3); PLATELET COUNT AUTOMATED 225 10*3/uL (130-400); RED BLOOD COUNT 4.08 10*6/uL (4.10-5.10); RED CELL DISTRI WIDTH 12.7 % (0-14.5); WHITE BLOOD COUNT 4.5 10*3/uL (4.8-10.8)
[2017-02-20 06:12] LABS: ACT PARTIAL THROMBO TIME 26.4 SECONDS (20.8-31.5); INTERNATIONAL NORM RATIO 0.9 (2.0-3.5)
[2017-02-20 06:22] LABS: ATYPICAL LYMPHS 2 % (0-0); PLATELET SUFFICIENCY NORMAL (NORMAL); TOTAL CELLS COUNTED 100 #CELLS
[2017-02-20 07:02] LABS: VITAMIN D, 25-HYDROXY 9.8 ng/mL (30-100)
[2017-02-20 08:00] VITALS: BP 138/68
[2017-02-20 16:00] VITALS: BP 139/92
[2017-02-20 20:00] VITALS: BP 152/73
[2017-02-21] VITALS: BP 123/78
[2017-02-21 06:38] LABS: BASO % 0.1 % (0.0-1.0); HEMATOCRIT 40.8 % (37.0-47.0); HEMOGLOBIN 13.5 g/dl (12.0-16.0); LYMPH # 0.6 10*3/uL (1.3-4.4); LYMPH % 6.9 % (27.0-41.0); MEAN CELL VOLUME 104.6 fl (81.0-99.0); MEAN CORPUSCULAR HGB 34.6 pg (27.0-31.0); MEAN CORPUSCULAR HGB CONC 33.1 g/dl (33.0-37.0); MEAN PLATELET VOLUME 10.1 fl (9.6-12.3); MONO # 0.4 10*3/uL (0.1-1.0); MONO % 5.2 % (3.0-9.0); NEUT # 7.2 10*3/uL (2.3-7.9); NEUT % 87.4 % (47.0-73.0); PLATELET COUNT AUTOMATED 220 10*3/uL (130-400); RED CELL DISTRI WIDTH 12.7 % (0-14.5); WHITE BLOOD COUNT 8.3 10*3/uL (4.8-10.8)
[2017-02-21 06:39] LABS: BUN 11 mg/dl (7-24); CHLORIDE 112 mmol/L (98-107); CREATININE 0.72 mg/dL (0.55-1.02); POTASSIUM 4.2 mmol/L (3.5-5.1); SODIUM 144 mmol/L (136-145)
[2017-02-21 08:00] VITALS: BP 135/76
[2017-02-21 16:00] VITALS: BP 137/83
[2017-02-21 20:00] VITALS: BP 152/82
[2017-02-22] VITALS: BP 150/82
[2017-02-22 07:10] LABS: HEMATOCRIT 39.1 % (37.0-47.0); HEMOGLOBIN 12.5 g/dl (12.0-16.0); LYMPH # 1.1 10*3/uL (1.3-4.4); LYMPH % 13.7 % (27.0-41.0); MEAN CORPUSCULAR HGB 33.2 pg (27.0-31.0); MEAN PLATELET VOLUME 10.2 fl (9.6-12.3); MONO # 0.4 10*3/uL (0.1-1.0); MONO % 4.9 % (3.0-9.0); NEUT # 6.3 10*3/uL (2.3-7.9); PLATELET COUNT AUTOMATED 224 10*3/uL (130-400); RED BLOOD COUNT 3.76 10*6/uL (4.10-5.10); RED CELL DISTRI WIDTH 12.5 % (0-14.5); WHITE BLOOD COUNT 7.8 10*3/uL (4.8-10.8)
[2017-02-22 07:28] LABS: BUN 20 mg/dl (7-24); CHLORIDE 108 mmol/L (98-107); CREATININE 0.71 mg/dL (0.55-1.02); POTASSIUM 3.8 mmol/L (3.5-5.1); SODIUM 144 mmol/L (136-145)
[2017-02-22 08:54] VITALS: BP 150/82
[2017-02-22] MEDS ORDERED: NORCO 7.5-3251 EACH PO (11:36)
[2017-02-22 12:00] VITALS: BP 148/84
[2017-02-22 16:00] VITALS: BP 154/94
[2017-02-22 21:08] VITALS: BP 154/83
[2017-02-23] VITALS: BP 152/81
[2017-02-23 08:00] VITALS: BP 165/80
[2017-02-23 12:00] VITALS: BP 151/82
[2017-02-23 16:00] VITALS: BP 140/85
[2017-02-23 20:00] VITALS: BP 122/63
[2017-02-24] VITALS (9 sets, daily range): BP systolic 128–167; BP diastolic 78–89
[2017-02-25] VITALS: BP 143/77
[2017-02-25 00:04] LABS: ADENOVIRUS Negative (Negative); INFLUENZA A Negative (Negative); INFLUENZA B Negative (Negative); METAPNEUMOVIRUS Negative (Negative); PARAINFLUENZA 1 Negative (Negative); PARAINFLUENZA 2 Negative (Negative); PARAINFLUENZA 3 Negative (Negative); RHINOVIRUS Negative (Negative); RSV A Negative (Negative); RSV B Negative (Negative)
[2017-02-25 07:33] LABS: BASO % 0.3 % (0.0-1.0); HEMATOCRIT 41.2 % (37.0-47.0); HEMOGLOBIN 13.6 g/dl (12.0-16.0); LYMPH # 1.1 10*3/uL (1.3-4.4); LYMPH % 16.9 % (27.0-41.0); MEAN CELL VOLUME 101.7 fl (81.0-99.0); MEAN CORPUSCULAR HGB 33.6 pg (27.0-31.0); MEAN PLATELET VOLUME 9.8 fl (9.6-12.3); MONO # 0.3 10*3/uL (0.1-1.0); MONO % 4.9 % (3.0-9.0); NEUT # 5.2 10*3/uL (2.3-7.9); NEUT % 76.6 % (47.0-73.0); PLATELET COUNT AUTOMATED 241 10*3/uL (130-400); RED BLOOD COUNT 4.05 10*6/uL (4.10-5.10); WHITE BLOOD COUNT 6.8 10*3/uL (4.8-10.8)
[2017-02-25 08:00] VITALS: BP 151/85
[2017-02-25 08:02] LABS: CREATININE 0.88 mg/dL (0.55-1.02)
[2017-02-25 12:00] VITALS: BP 157/77
[2017-02-25 16:00] VITALS: BP 138/65
[2017-02-25 16:08] LABS: ACID FAST SMEAR Negative (.); ACID FAST SPEC PROCESSING Concentration (.)
[2017-02-25 20:00] VITALS: BP 170/88
[2017-02-26] VITALS: BP 135/74
[2017-02-26 08:00] VITALS: BP 156/80
[2017-02-26 12:00] VITALS: BP 160/90
[2017-02-26] MEDS ORDERED: PREDNISONE10 MG PO (12:25)
[2017-02-26] MEDS ORDERED: VITAMIN D22000 UNIT PO (12:25)
== END 2017-02-26 13:08 | disposition home or self-care (01) | DRG 871 ==
LOC: ED 20:55 → EDHOLD 02-20 00:47 → 5E 02-20 00:47
PROVIDERS: Emergency Medicine Emergency Medical Services; Hospitalist; Internal Medicine; Internal Medicine Critical Care Medicine
PROC: 0BC98ZZ Extirpation of Matter from Lingula Bronchus, Via Natural or Artificial Opening Endoscopic (ICD-10-PCS; principal; 2017-02-24)
PROC: 0BC68ZZ Extirpation of Matter from Right Lower Lobe Bronchus, Via Natural or Artificial Opening Endoscopic (ICD-10-PCS; principal; 2017-02-24)
PROC: 0BC18ZZ Extirpation of Matter from Trachea, Via Natural or Artificial Opening Endoscopic (ICD-10-PCS; principal; 2017-02-24)
PROC: 0BC88ZZ Extirpation of Matter from Left Upper Lobe Bronchus, Via Natural or Artificial Opening Endoscopic (ICD-10-PCS; principal; 2017-02-24)
PROC: 0BC58ZZ Extirpation of Matter from Right Middle Lobe Bronchus, Via Natural or Artificial Opening Endoscopic (ICD-10-PCS; principal; 2017-02-24)
PROC: 0BC28ZZ Extirpation of Matter from Carina, Via Natural or Artificial Opening Endoscopic (ICD-10-PCS; principal; 2017-02-24)
PROC: 0BC48ZZ Extirpation of Matter from Right Upper Lobe Bronchus, Via Natural or Artificial Opening Endoscopic (ICD-10-PCS; principal; 2017-02-24)
DX: A41.9 Sepsis, unspecified organism (principal); J18.9 Pneumonia, unspecified organism; J96.21 Acute and chronic respiratory failure with hypoxia; T17.990A Other foreign object in respiratory tract, part unspecified in causing asphyxiation, initial encounter; E44.0 Moderate protein-calorie malnutrition; J44.1 Chronic obstructive pulmonary disease with (acute) exacerbation; J44.0 Chronic obstructive pulmonary disease with (acute) lower respiratory infection; J20.9 Acute bronchitis, unspecified; R73.9 Hyperglycemia, unspecified; G89.29 Other chronic pain; F41.9 Anxiety disorder, unspecified; E55.9 Vitamin D deficiency, unspecified; T38.0X5A Adverse effect of glucocorticoids and synthetic analogues, initial encounter; K21.9 Gastro-esophageal reflux disease without esophagitis; Z91.041 Radiographic dye allergy status; Z88.8 Allergy status to other drugs, medicaments and biological substances; Z90.49 Acquired absence of other specified parts of digestive tract; Z90.710 Acquired absence of both cervix and uterus; Z98.51 Tubal ligation status; Z82.49 Family history of ischemic heart disease and other diseases of the circulatory system; Z83.6 Family history of other diseases of the respiratory system; Z79.899 Other long term (current) drug therapy; Z72.0 Tobacco use; Z79.52 Long term (current) use of systemic steroids; Z71.6 Tobacco abuse counseling; Z68.27 Body mass index [BMI] 27.0-27.9, adult; X58.XXXA Exposure to other specified factors, initial encounter; Y93.89 Activity, other specified; Y92.89 Other specified places as the place of occurrence of the external cause; Y99.8 Other external cause status

== ENCOUNTER → 2017-12-08 | Outpatient (CLI) | payer MEDICARE ==
[~2017-12-08] MED LIST changes: +LEVAQUIN750 M1 PO; +VITAMIN D22000 UNIT PO; +VITAMIN D5000 UNI1 PO
== END | disposition home or self-care (01) ==
LOC: MAMMO 07:39
DX: Z12.31 Encounter for screening mammogram for malignant neoplasm of breast (principal)

== ENCOUNTER → 2018-10-17 | Outpatient (CLI) | payer OTHER ==
[2018-10-17 11:33] LABS: BILIRUBIN NEGATIVE (NEGATIVE); BLOOD 2+ (NEGATIVE); CLARITY SL CLOUDY (CLEAR); COLOR YELLOW (YELLOW); GLUCOSE NEGATIVE (NEGATIVE); KETONE NEGATIVE (NEGATIVE); LEUKO ESTERASE 3+ (NEGATIVE); NITRITE NEGATIVE (NEGATIVE); PH 5.5 (5.0-9.0); SPECIFIC GRAVITY <= 1.005 (1.005-1.030); UROBILINOGEN 0.2 E.U./dl (0.2-1.0)
[2018-10-17 12:00] LABS: BACTERIA 3+; WBC TNTC wbc/hpf (0-5)
[2018-10-17 12:01] LABS: RBC 21-30 rbc/hpf (0-2)
== END | disposition home or self-care (01) ==
LOC: LAB 10:50
PROVIDERS: Family Medicine
DX: N30.00 Acute cystitis without hematuria (principal)

== ENCOUNTER → 2018-11-20 | Outpatient (CLI) | payer MEDICARE, OTHER ==
[~2018-11-20] MED LIST changes: +VENT7GM INH; +ZITHROMAX500 MG PO
== END | disposition home or self-care (01) ==
LOC: CT 08:00
DX: I71.4 Abdominal aortic aneurysm, without rupture (principal); R10.2 Pelvic and perineal pain; R63.4 Abnormal weight loss; R11.0 Nausea; M48.56XA Collapsed vertebra, not elsewhere classified, lumbar region, initial encounter for fracture; Z90.49 Acquired absence of other specified parts of digestive tract; Z90.710 Acquired absence of both cervix and uterus

== ENCOUNTER → 2018-12-05 | Outpatient (CLI) | payer MEDICARE, OTHER ==
[2018-12-05 11:35] LABS: BASO # 0.1 10*3/uL (0.0-0.1); EOS # 0.2 10*3/uL (0.0-0.4); EOS % 3.3 % (1.0-4.0); HEMATOCRIT 40.4 % (37.0-47.0); LYMPH % 33.5 % (27.0-41.0); MEAN CELL VOLUME 104.9 fl (81.0-99.0); MEAN CORPUSCULAR HGB 33.8 pg (27.0-31.0); MEAN CORPUSCULAR HGB CONC 32.2 g/dl (33.0-37.0); MONO # 0.5 10*3/uL (0.1-1.0); MONO % 7.8 % (3.0-9.0); NEUT # 3.3 10*3/uL (2.3-7.9); NEUT % 54.2 % (47.0-73.0); PLATELET COUNT AUTOMATED 232 10*3/uL (130-400); RED BLOOD COUNT 3.85 10*6/uL (4.10-5.10); RED CELL DISTRI WIDTH 12.8 % (0-14.5); WHITE BLOOD COUNT 6.1 10*3/uL (4.8-10.8)
[2018-12-05 12:02] LABS: ALBUMIN 3.5 gm/dl (3.1-4.5); BUN 5 mg/dl (7-24); CHLORIDE 104 mmol/L (98-107); CREATININE 0.79 mg/dL (0.55-1.02); POTASSIUM 3.5 mmol/L (3.5-5.1); SGOT/AST 40 IU/L (3-35); SGPT/ALT 72 U/L (12-78); SODIUM 137 mmol/L (136-145)
[2018-12-05 12:11] LABS: ALKALINE PHOSPHATASE 98 U/L (45-117)
== END | disposition home or self-care (01) ==
LOC: LAB 10:54
PROVIDERS: Family Medicine
DX: R10.84 Generalized abdominal pain (principal); R63.4 Abnormal weight loss

== ENCOUNTER 2018-12-29 03:20 | Inpatient (IN) | payer MEDICARE, OTHER ==
[2018-12-29] VITALS (8 sets, daily range): BP systolic 90–142; BP diastolic 54–78
[~2018-12-29] VITALS: Ht 160 cm; Wt 58.1 kg
[~2018-12-29 03:20] MED LIST changes: -VENT7GM INH; -ZITHROMAX500 MG PO
[2018-12-29 04:08] LABS: BASO # 0.1 10*3/uL (0.0-0.1); BASO % 0.7 % (0.0-1.0); EOS # 0.5 10*3/uL (0.0-0.4); EOS % 6.1 % (1.0-4.0); HEMATOCRIT 42.3 % (37.0-47.0); HEMOGLOBIN 13.9 g/dl (12.0-16.0); LYMPH # 3.4 10*3/uL (1.3-4.4); LYMPH % 45.1 % (27.0-41.0); MEAN CELL VOLUME 104.4 fl (81.0-99.0); MEAN CORPUSCULAR HGB 34.3 pg (27.0-31.0); MEAN CORPUSCULAR HGB CONC 32.9 g/dl (33.0-37.0); MEAN PLATELET VOLUME 9.8 fl (9.6-12.3); MONO # 0.5 10*3/uL (0.1-1.0); MONO % 7.1 % (3.0-9.0); NEUT # 3.1 10*3/uL (2.3-7.9); NEUT % 40.9 % (47.0-73.0); PLATELET COUNT AUTOMATED 310 10*3/uL (130-400); RED BLOOD COUNT 4.05 10*6/uL (4.10-5.10); RED CELL DISTRI WIDTH 12.1 % (0-14.5); WHITE BLOOD COUNT 7.5 10*3/uL (4.8-10.8)
[2018-12-29 04:19] LABS: ACT PARTIAL THROMBO TIME 26.7 SECONDS (20.0-32.1); INTERNATIONAL NORM RATIO 0.8 (2.0-3.5)
[2018-12-29 04:33] LABS: ALBUMIN 3.4 gm/dl (3.1-4.5); ALKALINE PHOSPHATASE 125 U/L (45-117); BUN 5 mg/dl (7-24); CHLORIDE 105 mmol/L (98-107); CREATININE 0.77 mg/dL (0.55-1.02); POTASSIUM 3.6 mmol/L (3.5-5.1); SGOT/AST 36 IU/L (3-35); SGPT/ALT 52 U/L (12-78); SODIUM 140 mmol/L (136-145)
[2018-12-29 04:39] LABS: TROPONIN I < 0.015 ng/ml (<0.045)
--- NOTE | 2018-12-29 04:49 | NUR ---
PATIENT IS RESTING IN BED WITH NO COMPLAINTS. PATIENT STATES SHE IS BREATHING MUCH BETTER AT THIS TIME AND DENIES DISTRESS.
[2018-12-29] MEDS ORDERED: VENT7GM INH (05:18)
[2018-12-29] MEDS ORDERED: Ventolin 02.5 MG/3 M INH (05:19)
--- NOTE | 2018-12-29 05:20 | NUR ---
PATIENTS HOME MEDICATIONS UPDATED
--- NOTE | 2018-12-29 05:53 | NUR ---
A 63, admitted to , under the services of SAGE Arriaga DO with a diagnosis of COPD. Chief complaint is COPD. Patient arrived via stretcher from [place]. Monitor applied. Initial assessment completed. Vital signs taken and recorded. SAGE ARRIAGA DO notified of admission to the . Orders received. See assessment for past medical history, medications and allergies. Patient and/or family oriented to unit. visitation policy reviewed. Clothing/patient valuable form completed. CARLOTA JAMA
--- NOTE | 2018-12-29 06:14 | NUR ---
NOTIFIED DR. BOSE THAT MED REC IS UP TO DATE.
--- NOTE | 2018-12-29 06:17 | NUR ---
DR. MURILLO NOTIFIED OF NEW CONSULT. NO NEW ORDERS.
--- NOTE | 2018-12-29 06:56 | NUR ---
NOTIFIED DR. BOSE OF CRITICAL LACTIC OF 2.9. NO NEW ORDERS. IV FLUID BOLUS RUNNING.
--- NOTE | 2018-12-29 07:00 | NUR ---
BEDSIDE REPORT RECEIVED FROM [facility] NURSE. PT AWAKE AND ORIENTED. VOICES NO COMPLAINTS. IV FLUIDS RUNNING INTO R WRIST IV WITHOUT DIFFICULTY. NO SIGNS/SYMPTOMS OF DISTRESS. RESPIRATIONS EASY AND UNLABORED. CALL LIGHT IN REACH.
--- NOTE | 2018-12-29 08:30 | NUR ---
MORNING MEDICATIONS HELD PER ORDER BY DR LANE. PT WILL GET THEM AFTER ECHO.
--- NOTE | 2018-12-29 09:00 | NUR ---
DR. BURNS IN TO SEE PT. ORDERED MAINTENANCE FLUIDS. ALSO WANTED FLUTTER FOR PT, PT REFUSED AND STATED "THOSE DONT WORK FOR ME".
--- NOTE | 2018-12-29 09:44 | NUR ---
CRITICAL LACTIC ACID CALLED TO DR. LANE. NO NEW ORDERS AT THIS TIME.
--- NOTE | 2018-12-29 11:48 | NUR ---
CRITICAL LACTIC ACID CALLED TO DR. LANE. NO NEW ORDERS AT THIS TIME.
--- NOTE | 2018-12-29 12:11 | NUR ---
Electron Gun Inspector in to talk to patient. Patient states lives at home with alone. There are few steps in the home. Physician: betsy [facility]acy: [facility] Home health services: none Patient's level of ADLs: INDEPENDENT Patient has working utilities: all working DME: [employer] and home oxygen she uses at Follow-up physician's appointment after d/c: will be made by hospitalist nurse director upon discharge Does patient want to access PORTAL?: no Discharge plan discussed with patient, she lives at home alone, she states she is indepenedent in adls and ambulation, drives, she states she will return home when able and denies any home needs. JOSE CRUZ YATES
--- NOTE | 2018-12-29 12:13 | NUR ---
250 ML BOLUS GIVEN. PRIMARY BAG ALREADY RUNNING.
--- NOTE | 2018-12-29 13:58 | NUR ---
ATTEMPTED TO CALL DR. LANE WITH CRITICAL LACTIC ACID. WILL TRY AGAIN.
--- NOTE | 2018-12-29 13:59 | NUR ---
DR. LANE NOTIFIED OF LACTIC ACID. NO NEW ORDERS.
--- NOTE | 2018-12-29 14:25 | NUR ---
NORCO GIVEN PER ORDER FOR COMPLAINTS OF GENERALIZED PAIN. WILL CONTINUE TO MONITOR.
--- NOTE | 2018-12-29 20:04 | NUR ---
PATIENT REQUESTED SOMETHING FOR SLEEP. ORDERS RECIEVED FROM DR YOUNG TO PUT IN FOR RESTORIL.
[2018-12-30] VITALS: BP 109/59
[2018-12-30 06:30] LABS: BASO % 0.1 % (0.0-1.0); HEMATOCRIT 36.1 % (37.0-47.0); HEMOGLOBIN 11.5 g/dl (12.0-16.0); LYMPH # 0.9 10*3/uL (1.3-4.4); LYMPH % 8.3 % (27.0-41.0); MEAN CELL VOLUME 106.2 fl (81.0-99.0); MEAN CORPUSCULAR HGB 33.8 pg (27.0-31.0); MEAN CORPUSCULAR HGB CONC 31.9 g/dl (33.0-37.0); MEAN PLATELET VOLUME 9.9 fl (9.6-12.3); MONO # 0.4 10*3/uL (0.1-1.0); MONO % 3.2 % (3.0-9.0); NEUT # 9.7 10*3/uL (2.3-7.9); NEUT % 87.7 % (47.0-73.0); PLATELET COUNT AUTOMATED 278 10*3/uL (130-400); RED CELL DISTRI WIDTH 12.4 % (0-14.5)
[2018-12-30 07:16] LABS: ALBUMIN 2.9 gm/dl (3.1-4.5); BUN 8 mg/dl (7-24); CHLORIDE 110 mmol/L (98-107); CHOLESTEROL 177 mg/dL (<200); CREATININE 0.83 mg/dL (0.55-1.02); POTASSIUM 3.9 mmol/L (3.5-5.1); SGOT/AST 15 IU/L (3-35); SGPT/ALT 37 U/L (12-78); SODIUM 142 mmol/L (136-145); TOTAL PROTEIN 6.1 gm/dL (6.4-8.2)
[2018-12-30 07:17] LABS: ALKALINE PHOSPHATASE 91 U/L (45-117); HDL CHOLESTEROL 92 mg/dl (40-60); LDL CHOLESTEROL 71 mg/dL (9-159); TRIGLYCERIDES 69 mg/dl (<150); VLDL CHOLESTEROL 14 mg/dL (6-40)
--- NOTE | 2018-12-30 07:30 | NUR ---
Patient resting quietly with no c/o discomfort. Respirations easy and regular. Vital signs stable. No overt distress. KEVIN BARLOW
[2018-12-30 08:00] VITALS: BP 118/50
--- NOTE | 2018-12-30 08:37 | NUR ---
24 HR chart check completed.
--- NOTE | 2018-12-30 10:24 | NUR ---
MEDICATED WITH PO VALIUM ORDERED PER PT REQUEST FOR C/O ANXIETY.
[2018-12-30 12:00] VITALS: BP 142/66
--- NOTE | 2018-12-30 12:00 | NUR ---
MEDICATION EFFECTIVE FOR ANXIETY.
[2018-12-30 16:00] VITALS: BP 143/64
--- NOTE | 2018-12-30 18:17 | NUR ---
MEDICATED WITH PO NORCO ORDERED PER PT REQUEST FOR C/O BACK PAIN RATED 5/10.
[2018-12-30 20:00] VITALS: BP 148/65
--- NOTE | 2018-12-30 21:58 | NUR ---
RESTORIL GIVEN PER PATIENT REQUEST. WILL ASSESS EFFECTIVENESS.
--- NOTE | 2018-12-30 23:43 | NUR ---
RESTORIL EFFECTIVE. PATIENT SLEEPING. NO SIGNS OR SYMPTOMS OF DISTRESS. CALL LIGHT WITHIN REACH.
[2018-12-31] VITALS: BP 130/68
[2018-12-31 08:00] VITALS: BP 136/71
--- NOTE | 2018-12-31 10:15 | NUR ---
PT MEDICATED WITH PRN ZOFRAN FOR C/O NAUSEA.
[2018-12-31 12:00] VITALS: BP 148/74
[2018-12-31 16:00] VITALS: BP 128/89
--- NOTE | 2018-12-31 18:16 | NUR ---
PT MEDICATED WITH PRN NORCO FOR C/O GENERALIZED PAIN. WILL MONITOR.
[2018-12-31 20:00] VITALS: BP 147/71
--- NOTE | 2018-12-31 21:47 | NUR ---
RESTORIL GIVEN PER PATIENT REQUEST FOR INSOMNIA. WILL ASSESS EFFECTIVENESS.
--- NOTE | 2018-12-31 22:16 | NUR ---
24 HR chart check completed.
[2019-01-01] VITALS (8 sets, daily range): BP systolic 128–153; BP diastolic 62–85
--- NOTE | 2019-01-01 00:26 | NUR ---
Patient resting quietly with no c/o discomfort. Respirations easy and regular. Vital signs stable. No overt distress. 2L NC. CALL LIGHT WITHIN REACH. IBRAHIMA LOPEZ
[2019-01-01 06:57] LABS: BASO % 0.1 % (0.0-1.0); HEMATOCRIT 36.2 % (37.0-47.0); HEMOGLOBIN 11.6 g/dl (12.0-16.0); LYMPH # 1.3 10*3/uL (1.3-4.4); LYMPH % 16.2 % (27.0-41.0); MEAN CELL VOLUME 106.2 fl (81.0-99.0); MEAN PLATELET VOLUME 9.8 fl (9.6-12.3); MONO # 0.4 10*3/uL (0.1-1.0); MONO % 4.6 % (3.0-9.0); NEUT # 6.2 10*3/uL (2.3-7.9); NEUT % 78.3 % (47.0-73.0); PLATELET COUNT AUTOMATED 280 10*3/uL (130-400); RED BLOOD COUNT 3.41 10*6/uL (4.10-5.10); RED CELL DISTRI WIDTH 12.6 % (0-14.5)
[2019-01-01 07:27] LABS: CHLORIDE 106 mmol/L (98-107); POTASSIUM 4.3 mmol/L (3.5-5.1); SODIUM 141 mmol/L (136-145)
--- NOTE | 2019-01-01 07:30 | NUR ---
LEFT FLOOR FOR BRONCH
[2019-01-01 07:34] LABS: ALBUMIN 3.3 gm/dl (3.1-4.5); ALKALINE PHOSPHATASE 78 U/L (45-117); BUN 14 mg/dl (7-24); CREATININE 0.88 mg/dL (0.55-1.02); SGOT/AST 33 IU/L (3-35); SGPT/ALT 51 U/L (12-78); TOTAL PROTEIN 6.5 gm/dL (6.4-8.2)
--- NOTE | 2019-01-01 12:24 | NUR ---
PT CONTINUES TO DENY ANY NEEDS AT HOME ON DISCHARGE. WILL CONTINUE TO FOLLOW.
--- NOTE | 2019-01-01 17:45 | NUR ---
C/O PAIN TO BACK OF 10/31. REQUESTED NORCO. GIVEN AT THIS TIME. WILL CONT TO MONITOR. CALL LIGHT IN REACH.
--- NOTE | 2019-01-01 19:35 | NUR ---
24 HR chart check completed.
--- NOTE | 2019-01-01 21:00 | NUR ---
RESTING IN BED WITH NO ACUTE DISTRESS NOTED. RESPIRATIONS EASY. LUNGS DIMINISHED WITH FAINT I&E WHEEZES R>L. PULSE OX 97% 2L. INFREQUENT N-PROD COUGH. CALL LIGHT WITHIN REACH. NO VOICED COMPLAINTS
--- NOTE | 2019-01-01 21:25 | NUR ---
REQUESTED AND RECEIVED RESTORIL PER PRN ORDER TO ASSIST WITH SLEEP. CALL LIGHT WITHIN REACH. WILL MONITOR FOR EFFECTIVENESS
--- NOTE | 2019-01-01 23:00 | NUR ---
MEDS EFFECTIVE. SLEEPING. RESPIRATIONS EASY. O2 IN USE. CALL LIGHT WITHIN REACH
[2019-01-02] VITALS: BP 131/59
--- NOTE | 2019-01-02 00:30 | NUR ---
SLEEPING WITH NO DISTRESS NOTED. RESPIRATIONS EASY. VSS. PULSE OX 100% 2L. CALL LIGHT WITHIN REACH
--- NOTE | 2019-01-02 05:22 | NUR ---
REQUESTED ABD RECEIVED NORCO PER PRN ORDER FOR COMPLAINTS OF BACK PAIN RATING A 9. CALL LIGHT WITHIN REACH. WILL MONITOR FOR EFFECTIVENESS
--- NOTE | 2019-01-02 06:38 | NUR ---
EARLIER NORCO APPEARS EFFECTIVE. SLEEPING. RESPIRATIONS EASY. O2 IN USE. CALL LIGHT WITHIN REACH
[2019-01-02 08:00] VITALS: BP 125/66
--- NOTE | 2019-01-02 09:00 | NUR ---
case management visits with patient, she states she is being discharged to home today and denies any home needs
[2019-01-02] MEDS ORDERED: PREDNISONE10 MG PO (09:02)
[2019-01-02] MEDS ORDERED: ZITHROMAX500 MG PO (09:02)
--- NOTE | 2019-01-02 11:44 | NUR ---
PT DISCHARGED AT THIS TIME. IV REMOVED AND PRESSURE DRESSING APPLIED. VERBALIZED UNDERSTANDING OF DISCHARGE INSTRUCTIONS.
[2019-01-02 17:06] LABS: ACID FAST SPEC PROCESSING Concentration (.)
== END 2019-01-02 11:44 | disposition home or self-care (01) | DRG 871 ==
LOC: ED 03:20 → EDHOLD 05:11 → 4E 05:11
PROVIDERS: Emergency Medicine; Internal Medicine Critical Care Medicine; Student in an Organized Health Care Education/Training Program; ADMIT Internal Medicine
PROC: 0BC78ZZ Extirpation of Matter from Left Main Bronchus, Via Natural or Artificial Opening Endoscopic (ICD-10-PCS; principal; 2019-01-01)
PROC: 0BC18ZZ Extirpation of Matter from Trachea, Via Natural or Artificial Opening Endoscopic (ICD-10-PCS; principal; 2019-01-01)
PROC: 0BC88ZZ Extirpation of Matter from Left Upper Lobe Bronchus, Via Natural or Artificial Opening Endoscopic (ICD-10-PCS; principal; 2019-01-01)
PROC: 0BCB8ZZ Extirpation of Matter from Left Lower Lobe Bronchus, Via Natural or Artificial Opening Endoscopic (ICD-10-PCS; principal; 2019-01-01)
PROC: 0BC68ZZ Extirpation of Matter from Right Lower Lobe Bronchus, Via Natural or Artificial Opening Endoscopic (ICD-10-PCS; principal; 2019-01-01)
PROC: 0BC58ZZ Extirpation of Matter from Right Middle Lobe Bronchus, Via Natural or Artificial Opening Endoscopic (ICD-10-PCS; principal; 2019-01-01)
PROC: 0BC48ZZ Extirpation of Matter from Right Upper Lobe Bronchus, Via Natural or Artificial Opening Endoscopic (ICD-10-PCS; principal; 2019-01-01)
PROC: 0BC38ZZ Extirpation of Matter from Right Main Bronchus, Via Natural or Artificial Opening Endoscopic (ICD-10-PCS; principal; 2019-01-01)
PROC: 0BC98ZZ Extirpation of Matter from Lingula Bronchus, Via Natural or Artificial Opening Endoscopic (ICD-10-PCS; principal; 2019-01-01)
DX: A41.9 Sepsis, unspecified organism (principal); J18.9 Pneumonia, unspecified organism; J96.21 Acute and chronic respiratory failure with hypoxia; E44.0 Moderate protein-calorie malnutrition; J44.1 Chronic obstructive pulmonary disease with (acute) exacerbation; J44.0 Chronic obstructive pulmonary disease with (acute) lower respiratory infection; J20.9 Acute bronchitis, unspecified; F17.210 Nicotine dependence, cigarettes, uncomplicated; D72.89 Other specified disorders of white blood cells; R74.0 Nonspecific elevation of levels of transaminase and lactic acid dehydrogenase [LDH]; R74.8 Abnormal levels of other serum enzymes; E66.3 Overweight; K21.9 Gastro-esophageal reflux disease without esophagitis; R91.1 Solitary pulmonary nodule; E55.9 Vitamin D deficiency, unspecified; F41.9 Anxiety disorder, unspecified; G89.29 Other chronic pain; K76.0 Fatty (change of) liver, not elsewhere classified; I71.4 Abdominal aortic aneurysm, without rupture; Z71.6 Tobacco abuse counseling; Z99.81 Dependence on supplemental oxygen; Z88.8 Allergy status to other drugs, medicaments and biological substances; Z91.041 Radiographic dye allergy status; Z87.01 Personal history of pneumonia (recurrent); Z90.49 Acquired absence of other specified parts of digestive tract; Z90.710 Acquired absence of both cervix and uterus; Z82.49 Family history of ischemic heart disease and other diseases of the circulatory system; Z82.5 Family history of asthma and other chronic lower respiratory diseases; Z68.22 Body mass index [BMI] 22.0-22.9, adult

== ENCOUNTER → 2019-04-20 | Outpatient (CLI) | payer MEDICARE, OTHER ==
[~2019-04-20] MED LIST changes: +VENT7GM INH; +ZITHROMAX500 MG PO
== END | disposition home or self-care (01) ==
LOC: CT 04-19 11:00
DX: R91.1 Solitary pulmonary nodule (principal)

== ENCOUNTER 2019-06-02 05:25 | Inpatient (IN) | payer MEDICARE, OTHER ==
[~2019-06-02] VITALS: Ht 157.4 cm; Wt 65.1 kg
[2019-06-02 06:01] LABS: BASO % 0.6 % (0.0-1.0); EOS # 0.6 10*3/uL (0.0-0.4); EOS % 9.6 % (1.0-4.0); HEMATOCRIT 41.4 % (37.0-47.0); LYMPH # 2.5 10*3/uL (1.3-4.4); LYMPH % 38.1 % (27.0-41.0); MEAN CELL VOLUME 103.5 fl (81.0-99.0); MEAN CORPUSCULAR HGB 34.3 pg (27.0-31.0); MEAN CORPUSCULAR HGB CONC 33.1 g/dl (33.0-37.0); MEAN PLATELET VOLUME 9.7 fl (9.6-12.3); MONO # 0.6 10*3/uL (0.1-1.0); MONO % 8.7 % (3.0-9.0); NEUT # 2.8 10*3/uL (2.3-7.9); NEUT % 42.5 % (47.0-73.0); PLATELET COUNT AUTOMATED 214 10*3/uL (130-400); RED CELL DISTRI WIDTH 12.1 % (0-14.5); WHITE BLOOD COUNT 6.5 10*3/uL (4.8-10.8)
[2019-06-02 06:17] LABS: ACT PARTIAL THROMBO TIME 26.2 SECONDS (20.0-32.1); INTERNATIONAL NORM RATIO 0.9 (2.0-3.5)
[2019-06-02 06:23] LABS: ALBUMIN 3.6 gm/dl (3.1-4.5); ALKALINE PHOSPHATASE 91 U/L (45-117); BUN 7 mg/dl (7-24); CHLORIDE 105 mmol/L (98-107); CREATININE 0.83 mg/dL (0.55-1.02); POTASSIUM 3.7 mmol/L (3.5-5.1); SGOT/AST 16 IU/L (3-35); SGPT/ALT 34 U/L (12-78); SODIUM 142 mmol/L (136-145)
[2019-06-02 06:25] LABS: TROPONIN I < 0.015 ng/ml (<0.045)
[2019-06-02 06:30] VITALS: BP 137/70
[2019-06-02 07:15] VITALS: BP 135/65
[2019-06-02 09:09] VITALS: BP 151/73
[2019-06-02 12:00] VITALS: BP 135/76
[2019-06-02 16:00] VITALS: BP 129/70
[2019-06-02 20:00] VITALS: BP 133/67
[2019-06-03] VITALS: BP 120/52
[2019-06-03 06:00] LABS: BASO % 0.1 % (0.0-1.0); HEMATOCRIT 35.5 % (37.0-47.0); LYMPH # 0.8 10*3/uL (1.3-4.4); LYMPH % 11.9 % (27.0-41.0); MEAN CELL VOLUME 103.2 fl (81.0-99.0); MEAN PLATELET VOLUME 10.1 fl (9.6-12.3); MONO # 0.3 10*3/uL (0.1-1.0); MONO % 4.6 % (3.0-9.0); NEUT # 5.8 10*3/uL (2.3-7.9); PLATELET COUNT AUTOMATED 197 10*3/uL (130-400); RED BLOOD COUNT 3.44 10*6/uL (4.10-5.10); RED CELL DISTRI WIDTH 12.1 % (0-14.5)
[2019-06-03 06:24] LABS: BUN 8 mg/dl (7-24); CHLORIDE 114 mmol/L (98-107); CHOLESTEROL 195 mg/dL (<200); CREATININE 0.78 mg/dL (0.55-1.02); POTASSIUM 3.9 mmol/L (3.5-5.1); SODIUM 144 mmol/L (136-145)
[2019-06-03 06:35] LABS: FREE T4 0.65 ng/dl (0.76-1.46); HDL CHOLESTEROL 94 mg/dl (40-60); LDL CHOLESTEROL 89 mg/dL (9-159); THYROID STIM HORMONE (HS) 0.777 uIU/ml (0.358-4.75); TRIGLYCERIDES 60 mg/dl (<150); VLDL CHOLESTEROL 12 mg/dL (6-40)
[2019-06-03 07:26] LABS: VITAMIN D, 25-HYDROXY 52.7 ng/mL (30-100)
[2019-06-03 08:00] VITALS: BP 123/58
[2019-06-03 12:00] VITALS: BP 142/65
[2019-06-03 16:00] VITALS: BP 141/61
[2019-06-03 20:00] VITALS: BP 119/71
[2019-06-04] VITALS: BP 148/75
[2019-06-04 08:00] VITALS: BP 133/68
[2019-06-04 12:00] VITALS: BP 150/69
[2019-06-04 16:00] VITALS: BP 146/72
[2019-06-04 20:00] VITALS: BP 141/75
[2019-06-05] VITALS (9 sets, daily range): BP systolic 127–158; BP diastolic 68–93
[2019-06-06] VITALS: BP 129/60
[2019-06-06 06:16] LABS: BASO % 0.2 % (0.0-1.0); EOS # 0.1 10*3/uL (0.0-0.4); EOS % 2.1 % (1.0-4.0); HEMATOCRIT 36.4 % (37.0-47.0); LYMPH # 1.3 10*3/uL (1.3-4.4); LYMPH % 22.2 % (27.0-41.0); MEAN CELL VOLUME 104.6 fl (81.0-99.0); MEAN CORPUSCULAR HGB 33.9 pg (27.0-31.0); MEAN CORPUSCULAR HGB CONC 32.4 g/dl (33.0-37.0); MEAN PLATELET VOLUME 9.6 fl (9.6-12.3); MONO # 0.3 10*3/uL (0.1-1.0); MONO % 5.3 % (3.0-9.0); NEUT # 3.9 10*3/uL (2.3-7.9); NEUT % 69.5 % (47.0-73.0); PLATELET COUNT AUTOMATED 213 10*3/uL (130-400); RED BLOOD COUNT 3.48 10*6/uL (4.10-5.10); RED CELL DISTRI WIDTH 12.3 % (0-14.5); WHITE BLOOD COUNT 5.7 10*3/uL (4.8-10.8)
[2019-06-06 06:23] LABS: ALBUMIN 3.2 gm/dl (3.1-4.5); ALKALINE PHOSPHATASE 52 U/L (45-117); BUN 18 mg/dl (7-24); CHLORIDE 113 mmol/L (98-107); PHOSPHOROUS 3.7 mg/dL (2.5-4.9); POTASSIUM 4.1 mmol/L (3.5-5.1); SGOT/AST 10 IU/L (3-35); SGPT/ALT 33 U/L (12-78); SODIUM 143 mmol/L (136-145); TOTAL PROTEIN 6.2 gm/dL (6.4-8.2)
[2019-06-06 08:00] VITALS: BP 136/78
[2019-06-06] MEDS ORDERED: LEVAQUIN500 M2 PO (09:36)
[2019-06-06] MEDS ORDERED: PREDNISONE10 MG PO (09:36)
[2019-06-06 14:04] LABS: ACID FAST SPEC PROCESSING Concentration (.)
[2019-06-15 22:05] LABS: ORGANISM ID, MOLD Final report (.); RESULT 1 Penicillium species (.)
== END 2019-06-06 12:34 | disposition home or self-care (01) | DRG 871 ==
LOC: ED 05:25 → 4E 06:53 → EDHOLD 06:53 → 4E 08:23
PROVIDERS: Emergency Medicine Emergency Medical Services; Internal Medicine; Internal Medicine Critical Care Medicine; Registered Nurse; ADMIT Internal Medicine
PROC: 0BC18ZZ Extirpation of Matter from Trachea, Via Natural or Artificial Opening Endoscopic (ICD-10-PCS; principal; 2019-06-05)
PROC: 0BC38ZZ Extirpation of Matter from Right Main Bronchus, Via Natural or Artificial Opening Endoscopic (ICD-10-PCS; principal; 2019-06-05)
PROC: 0BCB8ZZ Extirpation of Matter from Left Lower Lobe Bronchus, Via Natural or Artificial Opening Endoscopic (ICD-10-PCS; principal; 2019-06-05)
PROC: 0BC78ZZ Extirpation of Matter from Left Main Bronchus, Via Natural or Artificial Opening Endoscopic (ICD-10-PCS; principal; 2019-06-05)
PROC: 0BC88ZZ Extirpation of Matter from Left Upper Lobe Bronchus, Via Natural or Artificial Opening Endoscopic (ICD-10-PCS; principal; 2019-06-05)
PROC: 0BC98ZZ Extirpation of Matter from Lingula Bronchus, Via Natural or Artificial Opening Endoscopic (ICD-10-PCS; principal; 2019-06-05)
PROC: 0BC48ZZ Extirpation of Matter from Right Upper Lobe Bronchus, Via Natural or Artificial Opening Endoscopic (ICD-10-PCS; principal; 2019-06-05)
PROC: 0BC58ZZ Extirpation of Matter from Right Middle Lobe Bronchus, Via Natural or Artificial Opening Endoscopic (ICD-10-PCS; principal; 2019-06-05)
PROC: 0BC68ZZ Extirpation of Matter from Right Lower Lobe Bronchus, Via Natural or Artificial Opening Endoscopic (ICD-10-PCS; principal; 2019-06-05)
DX: A41.9 Sepsis, unspecified organism (principal); J18.9 Pneumonia, unspecified organism; J44.1 Chronic obstructive pulmonary disease with (acute) exacerbation; E44.0 Moderate protein-calorie malnutrition; J44.0 Chronic obstructive pulmonary disease with (acute) lower respiratory infection; J96.11 Chronic respiratory failure with hypoxia; J45.51 Severe persistent asthma with (acute) exacerbation; J20.9 Acute bronchitis, unspecified; R65.20 Severe sepsis without septic shock; F17.210 Nicotine dependence, cigarettes, uncomplicated; K21.9 Gastro-esophageal reflux disease without esophagitis; Z99.81 Dependence on supplemental oxygen; Z91.041 Radiographic dye allergy status; Z88.8 Allergy status to other drugs, medicaments and biological substances; Z90.49 Acquired absence of other specified parts of digestive tract; Z90.710 Acquired absence of both cervix and uterus; Z82.5 Family history of asthma and other chronic lower respiratory diseases; Z82.49 Family history of ischemic heart disease and other diseases of the circulatory system; Z79.899 Other long term (current) drug therapy; Z68.26 Body mass index [BMI] 26.0-26.9, adult

== ENCOUNTER → 2019-07-27 | Day surgery (SDC) | payer MEDICARE, OTHER ==
[~2019-07-27] VITALS: Ht 160 cm; Wt 65.3 kg
[~2019-07-27] MED LIST changes: +OMEPRAZOLE40 MG PO
[2019-07-27 08:10] VITALS: BP 141/86
[2019-07-27 08:49] VITALS: BP 112/38
[2019-07-27 09:05] VITALS: BP 126/68
[2019-07-27 09:15] VITALS: BP 135/61
== END | disposition home or self-care (01) ==
LOC: SDC 07-24 08:45
DX: R10.13 Epigastric pain (principal); K21.9 Gastro-esophageal reflux disease without esophagitis; K29.70 Gastritis, unspecified, without bleeding; K44.9 Diaphragmatic hernia without obstruction or gangrene; F41.9 Anxiety disorder, unspecified; J44.9 Chronic obstructive pulmonary disease, unspecified; Z88.8 Allergy status to other drugs, medicaments and biological substances; Z79.899 Other long term (current) drug therapy; Z98.890 Other specified postprocedural states

== ENCOUNTER → 2019-08-01 | Outpatient (CLI) | payer MEDICARE, OTHER | END | disposition home or self-care (01) | LOC: CT 10:49 | DX: J98.4 Other disorders of lung (principal); I70.0 Atherosclerosis of aorta; I25.10 Atherosclerotic heart disease of native coronary artery without angina pectoris; Z90.49 Acquired absence of other specified parts of digestive tract ==

== ENCOUNTER → 2019-10-26 | Outpatient (CLI) | payer MEDICARE, OTHER ==
[~2019-10-26] MED LIST changes: +MUCUS RELIEF600 MG PO; +ZYRTEC10 M3 PO
== END | disposition home or self-care (01) ==
LOC: COVID19 10-25 10:00
PROVIDERS: ATTEND Internal Medicine Gastroenterology
DX: Z20.828 Contact with and (suspected) exposure to other viral communicable diseases (principal)

== ENCOUNTER → 2019-11-02 | Day surgery (SDC) | payer MEDICARE, OTHER ==
[~2019-11-02] VITALS: Ht 160 cm; Wt 65.3 kg
[2019-11-02 08:02] VITALS: BP 128/73
[2019-11-02 09:04] VITALS: BP 155/53
[2019-11-02 09:20] VITALS: BP 119/50
[2019-11-02 09:35] VITALS: BP 110/52
== END | disposition home or self-care (01) ==
LOC: SDC 10-19 08:45
PROVIDERS: ATTEND Internal Medicine Gastroenterology
DX: R19.7 Diarrhea, unspecified (principal); D12.5 Benign neoplasm of sigmoid colon; D12.8 Benign neoplasm of rectum; K64.8 Other hemorrhoids; K44.9 Diaphragmatic hernia without obstruction or gangrene; K21.0 Gastro-esophageal reflux disease with esophagitis; F41.9 Anxiety disorder, unspecified; K52.89 Other specified noninfective gastroenteritis and colitis; J44.9 Chronic obstructive pulmonary disease, unspecified; Z87.891 Personal history of nicotine dependence; Z79.899 Other long term (current) drug therapy

== ENCOUNTER 2019-12-13 15:02 | Inpatient (IN) | payer MEDICARE, OTHER ==
[~2019-12-13] VITALS: Ht 160 cm; Wt 61.7 kg
[2019-12-13 15:43] LABS: BASO # 0.1 10*3/uL (0.0-0.1); BASO % 0.8 % (0.0-1.0); EOS # 0.2 10*3/uL (0.0-0.4); HEMATOCRIT 38.7 % (37.0-47.0); LYMPH # 1.1 10*3/uL (1.3-4.4); LYMPH % 13.6 % (27.0-41.0); MEAN CORPUSCULAR HGB 31.3 pg (27.0-31.0); MEAN PLATELET VOLUME 9.3 fl (9.6-12.3); MONO # 0.2 10*3/uL (0.1-1.0); MONO % 2.6 % (3.0-9.0); NEUT # 6.4 10*3/uL (2.3-7.9); NEUT % 80.5 % (47.0-73.0); PLATELET COUNT AUTOMATED 307 10*3/uL (130-400); RED BLOOD COUNT 3.83 10*6/uL (4.10-5.10); RED CELL DISTRI WIDTH 13.6 % (0-14.5)
[2019-12-13 16:01] LABS: ACT PARTIAL THROMBO TIME 25.5 SECONDS (20.0-32.1); INTERNATIONAL NORM RATIO 0.9 (2.0-3.5)
[2019-12-13 16:06] LABS: ALBUMIN 3.5 gm/dl (3.1-4.5); ALKALINE PHOSPHATASE 81 U/L (45-117); BUN 7 mg/dl (7-24); CHLORIDE 108 mmol/L (98-107); CREATININE 0.85 mg/dL (0.55-1.02); POTASSIUM 3.5 mmol/L (3.5-5.1); SGOT/AST 12 IU/L (3-35); SGPT/ALT 18 U/L (12-78); SODIUM 141 mmol/L (136-145); TROPONIN I < 0.015 ng/ml (<0.045)
[2019-12-13 16:45] VITALS: BP 118/68
[2019-12-13 18:46] VITALS: BP 147/72
[2019-12-13 23:35] VITALS: BP 145/86
[2019-12-14 06:48] LABS: BASO % 0.2 % (0.0-1.0); HEMATOCRIT 37.1 % (37.0-47.0); LYMPH # 0.8 10*3/uL (1.3-4.4); LYMPH % 14.1 % (27.0-41.0); MEAN CELL VOLUME 102.2 fl (81.0-99.0); MEAN CORPUSCULAR HGB 32.2 pg (27.0-31.0); MEAN CORPUSCULAR HGB CONC 31.5 g/dl (33.0-37.0); MEAN PLATELET VOLUME 9.6 fl (9.6-12.3); MONO # 0.1 10*3/uL (0.1-1.0); MONO % 0.9 % (3.0-9.0); NEUT # 4.6 10*3/uL (2.3-7.9); NEUT % 84.2 % (47.0-73.0); PLATELET COUNT AUTOMATED 290 10*3/uL (130-400); RED BLOOD COUNT 3.63 10*6/uL (4.10-5.10); RED CELL DISTRI WIDTH 13.6 % (0-14.5); WHITE BLOOD COUNT 5.4 10*3/uL (4.8-10.8)
[2019-12-14 07:04] LABS: ALBUMIN 3.3 gm/dl (3.1-4.5); ALKALINE PHOSPHATASE 75 U/L (45-117); BUN 16 mg/dl (7-24); CHLORIDE 107 mmol/L (98-107); CREATININE 0.93 mg/dL (0.55-1.02); POTASSIUM 4.2 mmol/L (3.5-5.1); SGOT/AST 8 IU/L (3-35); SGPT/ALT 19 U/L (12-78); SODIUM 140 mmol/L (136-145); TOTAL PROTEIN 6.7 gm/dL (6.4-8.2)
[2019-12-14 08:00] VITALS: BP 142/72
[2019-12-14 12:00] VITALS: BP 127/72
[2019-12-14 16:00] VITALS: BP 135/70
[2019-12-14 20:00] VITALS: BP 135/67
[2019-12-15] VITALS: BP 107/49
[2019-12-15 07:25] LABS: BASO % 0.1 % (0.0-1.0); LYMPH # 0.9 10*3/uL (1.3-4.4); LYMPH % 7.3 % (27.0-41.0); MEAN CELL VOLUME 102.2 fl (81.0-99.0); MEAN CORPUSCULAR HGB 31.9 pg (27.0-31.0); MEAN CORPUSCULAR HGB CONC 31.2 g/dl (33.0-37.0); MEAN PLATELET VOLUME 9.8 fl (9.6-12.3); MONO # 0.5 10*3/uL (0.1-1.0); MONO % 4.1 % (3.0-9.0); NEUT # 11.2 10*3/uL (2.3-7.9); NEUT % 87.9 % (47.0-73.0); PLATELET COUNT AUTOMATED 271 10*3/uL (130-400); RED BLOOD COUNT 3.23 10*6/uL (4.10-5.10); RED CELL DISTRI WIDTH 13.8 % (0-14.5); WHITE BLOOD COUNT 12.8 10*3/uL (4.8-10.8)
[2019-12-15 07:42] LABS: BUN 16 mg/dl (7-24); CHLORIDE 111 mmol/L (98-107); CREATININE 0.82 mg/dL (0.55-1.02); POTASSIUM 4.2 mmol/L (3.5-5.1); SODIUM 143 mmol/L (136-145)
[2019-12-15 08:00] VITALS: BP 140/77; BP 176/86
[2019-12-15 12:00] VITALS: BP 131/61
[2019-12-15 16:00] VITALS: BP 154/70
[2019-12-15 20:00] VITALS: BP 138/66
[2019-12-16] VITALS: BP 144/55
[2019-12-16 08:00] VITALS: BP 154/78
[2019-12-16 12:00] VITALS: BP 130/65
[2019-12-16 16:00] VITALS: BP 147/63
[2019-12-16 20:00] VITALS: BP 146/62
[2019-12-17] VITALS (9 sets, daily range): BP systolic 123–163; BP diastolic 60–96
[2019-12-17 06:44] LABS: BASO % 0.3 % (0.0-1.0); HEMATOCRIT 35.3 % (37.0-47.0); LYMPH # 1.3 10*3/uL (1.3-4.4); LYMPH % 11.3 % (27.0-41.0); MEAN CELL VOLUME 104.7 fl (81.0-99.0); MEAN CORPUSCULAR HGB CONC 30.6 g/dl (33.0-37.0); MEAN PLATELET VOLUME 9.6 fl (9.6-12.3); MONO # 0.5 10*3/uL (0.1-1.0); MONO % 4.6 % (3.0-9.0); NEUT # 9.5 10*3/uL (2.3-7.9); NEUT % 82.6 % (47.0-73.0); PLATELET COUNT AUTOMATED 264 10*3/uL (130-400); RED BLOOD COUNT 3.37 10*6/uL (4.10-5.10); RED CELL DISTRI WIDTH 13.7 % (0-14.5); WHITE BLOOD COUNT 11.4 10*3/uL (4.8-10.8)
[2019-12-17 07:03] LABS: BUN 15 mg/dl (7-24); CHLORIDE 109 mmol/L (98-107); CREATININE 0.75 mg/dL (0.55-1.02); POTASSIUM 3.9 mmol/L (3.5-5.1); SODIUM 144 mmol/L (136-145)
[2019-12-18] VITALS: BP 150/76
[2019-12-18 08:00] VITALS: BP 160/78
[2019-12-18] MEDS ORDERED: MUCUS RELIEF600 MG PO (11:45)
[2019-12-18] MEDS ORDERED: OMNICEF300 MG PO (11:45)
[2019-12-18] MEDS ORDERED: ZITHROMAX500 MG PO (11:45)
[2019-12-18] MEDS ORDERED: PREDNISONE10 MG PO (11:45)
[2019-12-18 13:09] LABS: ACID FAST SPEC PROCESSING Concentration (.)
[2020-02-04 11:10] LABS: ACID FAST CULTURE Negative (.)
== END 2019-12-18 13:51 | disposition home or self-care (01) | DRG 189 ==
LOC: ED 15:02 → 5E 17:32 → EDHOLD 17:32 → 5E 22:21
PROVIDERS: Emergency Medicine; Family Medicine; Hospitalist; Internal Medicine Critical Care Medicine; Student in an Organized Health Care Education/Training Program; ADMIT Internal Medicine; ATTEND Internal Medicine
DX: J96.20 Acute and chronic respiratory failure, unspecified whether with hypoxia or hypercapnia (principal); J44.1 Chronic obstructive pulmonary disease with (acute) exacerbation; E44.0 Moderate protein-calorie malnutrition; T17.590A Other foreign object in bronchus causing asphyxiation, initial encounter; J44.0 Chronic obstructive pulmonary disease with (acute) lower respiratory infection; Z68.24 Body mass index [BMI] 24.0-24.9, adult; E87.8 Other disorders of electrolyte and fluid balance, not elsewhere classified; E83.41 Hypermagnesemia; K21.9 Gastro-esophageal reflux disease without esophagitis; Z99.81 Dependence on supplemental oxygen; G89.29 Other chronic pain; R73.9 Hyperglycemia, unspecified; F17.210 Nicotine dependence, cigarettes, uncomplicated; D53.9 Nutritional anemia, unspecified; J20.9 Acute bronchitis, unspecified; F41.9 Anxiety disorder, unspecified; X58.XXXA Exposure to other specified factors, initial encounter; Y93.89 Activity, other specified; Y92.89 Other specified places as the place of occurrence of the external cause; Y99.8 Other external cause status; Z91.041 Radiographic dye allergy status; Z88.8 Allergy status to other drugs, medicaments and biological substances; Z90.49 Acquired absence of other specified parts of digestive tract; Z90.710 Acquired absence of both cervix and uterus; Z82.49 Family history of ischemic heart disease and other diseases of the circulatory system; Z82.5 Family history of asthma and other chronic lower respiratory diseases; Z71.6 Tobacco abuse counseling

== ENCOUNTER → 2020-01-20 | Outpatient (CLI) | payer MEDICARE, OTHER ==
[~2020-01-20] MED LIST changes: +OMNICEF300 MG PO
== END | disposition home or self-care (01) ==
LOC: COVID19 11:21
PROVIDERS: ATTEND Internal Medicine Gastroenterology
DX: Z20.828 Contact with and (suspected) exposure to other viral communicable diseases (principal)

== ENCOUNTER → 2020-02-04 | Outpatient (CLI) | payer MEDICARE, OTHER | END | disposition home or self-care (01) | LOC: CT 01-31 11:00 | PROVIDERS: ATTEND Internal Medicine Critical Care Medicine | DX: J84.10 Pulmonary fibrosis, unspecified (principal); R91.1 Solitary pulmonary nodule ==

== ENCOUNTER 2020-04-15 10:00 | Inpatient (IN) | payer MEDICARE, OTHER ==
[~2020-04-15] VITALS: Ht 160 cm; Wt 61.0 kg
[2020-04-15 10:18] VITALS: BP 145/64
[2020-04-15 10:26] LABS: BASO % 0.6 % (0.0-1.0); EOS # 0.1 10*3/uL (0.0-0.4); HEMATOCRIT 39.3 % (37.0-47.0); LYMPH # 1.9 10*3/uL (1.3-4.4); LYMPH % 29.7 % (27.0-41.0); MEAN CELL VOLUME 100.8 fl (81.0-99.0); MEAN CORPUSCULAR HGB 31.8 pg (27.0-31.0); MEAN CORPUSCULAR HGB CONC 31.6 g/dl (33.0-37.0); MEAN PLATELET VOLUME 9.3 fl (9.6-12.3); MONO # 0.4 10*3/uL (0.1-1.0); MONO % 6.6 % (3.0-9.0); NEUT % 60.9 % (47.0-73.0); PLATELET COUNT AUTOMATED 223 10*3/uL (130-400); RED CELL DISTRI WIDTH 12.8 % (0-14.5); WHITE BLOOD COUNT 6.5 10*3/uL (4.8-10.8)
[2020-04-15 10:28] VITALS: BP 145/64
[2020-04-15 10:41] LABS: ACT PARTIAL THROMBO TIME 26.3 SECONDS (20.0-32.1); INTERNATIONAL NORM RATIO 0.9 (2.0-3.5)
[2020-04-15 10:43] LABS: ALBUMIN 3.2 gm/dl (3.1-4.5); ALKALINE PHOSPHATASE 92 U/L (45-117); BUN 4 mg/dl (7-24); CHLORIDE 111 mmol/L (98-107); LIPASE 59 U/L (73-393); POTASSIUM 3.9 mmol/L (3.5-5.1); SGOT/AST 9 IU/L (3-35); SGPT/ALT 16 U/L (12-78); SODIUM 144 mmol/L (136-145); TOTAL PROTEIN 6.7 gm/dL (6.4-8.2)
[2020-04-15 10:44] LABS: TROPONIN I < 0.015 ng/ml (<0.045)
[2020-04-15 12:52] LABS: BILIRUBIN Negative (Negative); BLOOD 1+ (Negative); CLARITY Turbid (Clear); COLOR Yellow (Yellow); GLUCOSE Negative (Negative); KETONE Negative (Negative); LEUKO ESTERASE 3+ (Negative); NITRITE Positive (Negative); PH 6.5 (4.5-8.0); UROBILINOGEN 0.2 E.U./dl (0.0-1.0)
[2020-04-15 13:07] LABS: BACTERIA 3+; RBC 21-30 rbc/hpf (0-2); WBC TNTC wbc/hpf (0-5)
[2020-04-15 14:28] VITALS: BP 109/65
[2020-04-15 20:30] VITALS: BP 147/76
[2020-04-16] VITALS: BP 149/77
[2020-04-16 07:11] LABS: BASO % 0.2 % (0.0-1.0); HEMATOCRIT 36.3 % (37.0-47.0); LYMPH # 0.9 10*3/uL (1.3-4.4); LYMPH % 17.2 % (27.0-41.0); MEAN CELL VOLUME 101.1 fl (81.0-99.0); MEAN CORPUSCULAR HGB 31.8 pg (27.0-31.0); MEAN CORPUSCULAR HGB CONC 31.4 g/dl (33.0-37.0); MEAN PLATELET VOLUME 9.5 fl (9.6-12.3); MONO # 0.1 10*3/uL (0.1-1.0); MONO % 1.6 % (3.0-9.0); NEUT # 4.1 10*3/uL (2.3-7.9); NEUT % 80.6 % (47.0-73.0); PLATELET COUNT AUTOMATED 225 10*3/uL (130-400); RED BLOOD COUNT 3.59 10*6/uL (4.10-5.10); RED CELL DISTRI WIDTH 12.7 % (0-14.5); WHITE BLOOD COUNT 5.1 10*3/uL (4.8-10.8)
[2020-04-16 07:45] LABS: ALBUMIN 3.1 gm/dl (3.1-4.5); BUN 6 mg/dl (7-24); CHLORIDE 111 mmol/L (98-107); CHOLESTEROL 254 mg/dL (<200); CREATININE 0.98 mg/dL (0.55-1.02); SGOT/AST 6 IU/L (3-35); SGPT/ALT 13 U/L (12-78); SODIUM 143 mmol/L (136-145); TOTAL PROTEIN 6.6 gm/dL (6.4-8.2); TRIGLYCERIDES 67 mg/dl (<150); VLDL CHOLESTEROL 13 mg/dL (6-40)
[2020-04-16 07:47] LABS: ALKALINE PHOSPHATASE 87 U/L (45-117); FREE T4 0.74 ng/dl (0.76-1.46); HDL CHOLESTEROL 72 mg/dl (40-60); LDL CHOLESTEROL 169 mg/dL (9-159)
[2020-04-16 08:11] LABS: VITAMIN D, 25-HYDROXY 23.4 ng/mL (30-100)
[2020-04-16 16:00] VITALS: BP 125/67
[2020-04-17] VITALS: BP 103/47
[2020-04-17 07:44] LABS: BASO % 0.1 % (0.0-1.0); HEMATOCRIT 34.9 % (37.0-47.0); LYMPH # 1.9 10*3/uL (1.3-4.4); LYMPH % 15.9 % (27.0-41.0); MEAN CELL VOLUME 102.6 fl (81.0-99.0); MEAN CORPUSCULAR HGB 32.4 pg (27.0-31.0); MEAN CORPUSCULAR HGB CONC 31.5 g/dl (33.0-37.0); MONO # 0.8 10*3/uL (0.1-1.0); MONO % 6.9 % (3.0-9.0); NEUT # 9.1 10*3/uL (2.3-7.9); NEUT % 76.8 % (47.0-73.0); PLATELET COUNT AUTOMATED 238 10*3/uL (130-400); RED CELL DISTRI WIDTH 12.9 % (0-14.5); WHITE BLOOD COUNT 11.8 10*3/uL (4.8-10.8)
[2020-04-17 08:00] VITALS: BP 97/76
[2020-04-17 08:10] LABS: ALBUMIN 3.1 gm/dl (3.1-4.5); ALKALINE PHOSPHATASE 84 U/L (45-117); BUN 15 mg/dl (7-24); CHLORIDE 111 mmol/L (98-107); CPK 26 U/L (26-192); LDH 130 U/L (84-246); POTASSIUM 3.9 mmol/L (3.5-5.1); SGOT/AST 7 IU/L (3-35); SGPT/ALT 15 U/L (12-78); SODIUM 145 mmol/L (136-145); TOTAL PROTEIN 6.1 gm/dL (6.4-8.2)
[2020-04-17 12:00] VITALS: BP 135/56
[2020-04-17 16:00] VITALS: BP 151/79
[2020-04-17 20:00] VITALS: BP 128/63
[2020-04-18] VITALS: BP 128/65
[2020-04-18 06:19] LABS: ALBUMIN 3.1 gm/dl (3.1-4.5); ALKALINE PHOSPHATASE 71 U/L (45-117); BUN 17 mg/dl (7-24); CHLORIDE 108 mmol/L (98-107); CPK 19 U/L (26-192); CREATININE 0.83 mg/dL (0.55-1.02); LDH 137 U/L (84-246); POTASSIUM 4.3 mmol/L (3.5-5.1); SGOT/AST 6 IU/L (3-35); SGPT/ALT 14 U/L (12-78); SODIUM 145 mmol/L (136-145)
[2020-04-18 06:31] LABS: BASO % 0.2 % (0.0-1.0); HEMATOCRIT 34.4 % (37.0-47.0); LYMPH # 2.4 10*3/uL (1.3-4.4); LYMPH % 22.2 % (27.0-41.0); MEAN CELL VOLUME 102.4 fl (81.0-99.0); MEAN CORPUSCULAR HGB 31.5 pg (27.0-31.0); MEAN CORPUSCULAR HGB CONC 30.8 g/dl (33.0-37.0); MEAN PLATELET VOLUME 9.7 fl (9.6-12.3); MONO # 0.6 10*3/uL (0.1-1.0); NEUT # 7.9 10*3/uL (2.3-7.9); NEUT % 72.2 % (47.0-73.0); PLATELET COUNT AUTOMATED 232 10*3/uL (130-400); RED BLOOD COUNT 3.36 10*6/uL (4.10-5.10); RED CELL DISTRI WIDTH 12.8 % (0-14.5)
[2020-04-18 08:00] VITALS: BP 140/68
[2020-04-18 12:00] VITALS: BP 163/66
[2020-04-18 16:00] VITALS: BP 158/86; BP 175/82
[2020-04-18 20:00] VITALS: BP 159/80
[2020-04-19] VITALS: BP 126/62
[2020-04-19 06:18] LABS: BASO % 0.1 % (0.0-1.0); HEMATOCRIT 33.4 % (37.0-47.0); LYMPH # 1.9 10*3/uL (1.3-4.4); LYMPH % 23.4 % (27.0-41.0); MEAN CELL VOLUME 101.8 fl (81.0-99.0); MEAN CORPUSCULAR HGB 31.4 pg (27.0-31.0); MEAN CORPUSCULAR HGB CONC 30.8 g/dl (33.0-37.0); MEAN PLATELET VOLUME 9.7 fl (9.6-12.3); MONO # 0.5 10*3/uL (0.1-1.0); MONO % 5.9 % (3.0-9.0); NEUT # 5.8 10*3/uL (2.3-7.9); NEUT % 69.8 % (47.0-73.0); PLATELET COUNT AUTOMATED 231 10*3/uL (130-400); RED BLOOD COUNT 3.28 10*6/uL (4.10-5.10); RED CELL DISTRI WIDTH 12.6 % (0-14.5); WHITE BLOOD COUNT 8.3 10*3/uL (4.8-10.8)
[2020-04-19 06:46] LABS: ALKALINE PHOSPHATASE 66 U/L (45-117); BUN 21 mg/dl (7-24); CHLORIDE 109 mmol/L (98-107); CPK 14 U/L (26-192); CREATININE 0.74 mg/dL (0.55-1.02); LDH 125 U/L (84-246); SGPT/ALT 14 U/L (12-78); SODIUM 143 mmol/L (136-145); TOTAL PROTEIN 5.9 gm/dL (6.4-8.2)
[2020-04-19 06:50] LABS: SGOT/AST < 3 IU/L (3-35)
[2020-04-19 08:00] VITALS: BP 113/86
[2020-04-19] MEDS ORDERED: VITAMIN D350 MC3 PO (11:30)
[2020-04-19] MEDS ORDERED: ZITHROMAX250 MG PO (11:32)
[2020-04-19] MEDS ORDERED: PREDNISONE10 MG PO (11:32)
[2020-04-19 12:00] VITALS: BP 163/75
== END 2020-04-19 14:50 | disposition home or self-care (01) | DRG 191 ==
LOC: ED 10:00 → EDHOLD 11:00 → 5E 11:00 → EDHOLD 11:46 → 5E 18:45 → 4E 04-16 12:57
PROVIDERS: Emergency Medicine; Registered Nurse; ADMIT Internal Medicine; ATTEND Internal Medicine
DX: J44.0 Chronic obstructive pulmonary disease with (acute) lower respiratory infection (principal); N39.0 Urinary tract infection, site not specified; J96.11 Chronic respiratory failure with hypoxia; E44.0 Moderate protein-calorie malnutrition; J20.9 Acute bronchitis, unspecified; J44.1 Chronic obstructive pulmonary disease with (acute) exacerbation; K21.9 Gastro-esophageal reflux disease without esophagitis; Z20.822 Contact with and (suspected) exposure to COVID-19; F41.9 Anxiety disorder, unspecified; E87.8 Other disorders of electrolyte and fluid balance, not elsewhere classified; F17.210 Nicotine dependence, cigarettes, uncomplicated; R73.9 Hyperglycemia, unspecified; D53.9 Nutritional anemia, unspecified; Z90.710 Acquired absence of both cervix and uterus; Z99.81 Dependence on supplemental oxygen; Z90.49 Acquired absence of other specified parts of digestive tract; Z91.041 Radiographic dye allergy status; Z82.49 Family history of ischemic heart disease and other diseases of the circulatory system; Z79.51 Long term (current) use of inhaled steroids; Z79.1 Long term (current) use of non-steroidal anti-inflammatories (NSAID); Z79.899 Other long term (current) drug therapy; Z88.8 Allergy status to other drugs, medicaments and biological substances; Z82.5 Family history of asthma and other chronic lower respiratory diseases; Z68.23 Body mass index [BMI] 23.0-23.9, adult

== ENCOUNTER → 2020-07-09 | Outpatient (CLI) | payer MEDICARE, OTHER ==
[~2020-07-09] MED LIST changes: +VITAMIN D350 MC3 PO; +ZITHROMAX250 MG PO
== END | disposition home or self-care (01) ==
LOC: RAD 07:57 → MAMMO 08:30
PROVIDERS: ATTEND Family Medicine
DX: Z12.31 Encounter for screening mammogram for malignant neoplasm of breast (principal); N64.89 Other specified disorders of breast; M85.89 Other specified disorders of bone density and structure, multiple sites; Z78.0 Asymptomatic menopausal state; Z13.220 Encounter for screening for lipoid disorders

== ENCOUNTER → 2020-11-26 | Outpatient (CLI) | payer MEDICARE, OTHER ==
[~2020-11-26] MED LIST changes: +ATORVASTATIN CA20 M1 PO; +ROSUVASTATIN CA20 MG PO
[2020-11-26 13:19] LABS: BASO # 0.1 10*3/uL (0.0-0.1); BASO % 0.8 % (0.0-1.0); EOS # 0.3 10*3/uL (0.0-0.4); HEMATOCRIT 37.7 % (37.0-47.0); LYMPH # 2.4 10*3/uL (1.3-4.4); LYMPH % 37.6 % (27.0-41.0); MEAN CELL VOLUME 99.5 fl (81.0-99.0); MEAN CORPUSCULAR HGB 32.5 pg (27.0-31.0); MEAN CORPUSCULAR HGB CONC 32.6 g/dl (33.0-37.0); MEAN PLATELET VOLUME 9.7 fl (9.6-12.3); MONO # 0.6 10*3/uL (0.1-1.0); MONO % 9.1 % (3.0-9.0); NEUT # 3.1 10*3/uL (2.3-7.9); NEUT % 48.2 % (47.0-73.0); PLATELET COUNT AUTOMATED 245 10*3/uL (130-400); RED BLOOD COUNT 3.79 10*6/uL (4.10-5.10); WHITE BLOOD COUNT 6.5 10*3/uL (4.8-10.8)
[2020-11-26 13:28] LABS: BILIRUBIN Negative (Negative); BLOOD Trace-Intact (Negative); CLARITY Cloudy (Clear); COLOR Yellow (Yellow); GLUCOSE Negative (Negative); KETONE Negative (Negative); LEUKO ESTERASE 3+ (Negative); NITRITE Positive (Negative); SPECIFIC GRAVITY <= 1.005 (1.001-1.030); UROBILINOGEN 0.2 E.U./dl (0.0-1.0)
[2020-11-26 13:36] LABS: BACTERIA 4+; EPITHELIAL CELLS 0-2; RBC 0-2 rbc/hpf (0-2); WBC TNTC wbc/hpf (0-5)
[2020-11-26 13:37] LABS: ALBUMIN 3.4 gm/dl (3.1-4.5); ALKALINE PHOSPHATASE 78 U/L (45-117); BUN 8 mg/dl (7-24); CHLORIDE 103 mmol/L (98-107); CREATININE 0.72 mg/dL (0.55-1.02); POTASSIUM 3.8 mmol/L (3.5-5.1); SGOT/AST 16 IU/L (3-35); SGPT/ALT 20 U/L (12-78); SODIUM 138 mmol/L (136-145); TOTAL PROTEIN 6.5 gm/dL (6.4-8.2)
== END | disposition home or self-care (01) ==
LOC: LAB 12:48
PROVIDERS: ATTEND Family Medicine
DX: R53.83 Other fatigue (principal); R60.9 Edema, unspecified

== ENCOUNTER 2021-05-07 12:15 | Inpatient (IN) | payer MEDICARE, OTHER ==
[~2021-05-07] VITALS: Ht 160 cm; Wt 64.0 kg
[2021-05-07 12:15] VITALS: BP 180/79
[~2021-05-07 12:15] MED LIST changes: +MUCINEX1200 M1 PO
[2021-05-07 12:31] LABS: BASO # 0.1 10*3/uL (0.0-0.1); BASO % 0.6 % (0.0-1.0); EOS # 0.3 10*3/uL (0.0-0.4); EOS % 3.1 % (1.0-4.0); HEMATOCRIT 41.3 % (37.0-47.0); LYMPH # 2.4 10*3/uL (1.3-4.4); MEAN CELL VOLUME 101.7 fl (81.0-99.0); MEAN CORPUSCULAR HGB 33.3 pg (27.0-31.0); MEAN CORPUSCULAR HGB CONC 32.7 g/dl (33.0-37.0); MEAN PLATELET VOLUME 9.3 fl (9.6-12.3); MONO # 0.7 10*3/uL (0.1-1.0); MONO % 7.7 % (3.0-9.0); NEUT # 5.1 10*3/uL (2.3-7.9); NEUT % 60.4 % (47.0-73.0); PLATELET COUNT AUTOMATED 252 10*3/uL (130-400); RED BLOOD COUNT 4.06 10*6/uL (4.10-5.10); RED CELL DISTRI WIDTH 13.1 % (0-14.5); WHITE BLOOD COUNT 8.4 10*3/uL (4.8-10.8)
[2021-05-07 12:42] LABS: ACT PARTIAL THROMBO TIME 28.4 SECONDS (20.0-32.1); INTERNATIONAL NORM RATIO 0.9 (2.0-3.5)
[2021-05-07 12:46] LABS: ALKALINE PHOSPHATASE 100 U/L (45-117); BUN 6 mg/dl (7-24); CHLORIDE 102 mmol/L (98-107); CREATININE 0.61 mg/dL (0.55-1.02); POTASSIUM 3.8 mmol/L (3.5-5.1); SGOT/AST 15 IU/L (3-35); SGPT/ALT 25 U/L (12-78); SODIUM 136 mmol/L (136-145); TOTAL PROTEIN 6.9 gm/dL (6.4-8.2)
[2021-05-07 15:38] VITALS: BP 150/89
[2021-05-07 15:45] VITALS: BP 179/93
[2021-05-07 20:00] VITALS: BP 180/98
[2021-05-08] VITALS: BP 125/63
[2021-05-08 06:26] LABS: BUN 9 mg/dl (7-24); CHLORIDE 103 mmol/L (98-107); POTASSIUM 4.3 mmol/L (3.5-5.1); SODIUM 138 mmol/L (136-145)
[2021-05-08 06:28] LABS: CREATININE 0.65 mg/dL (0.55-1.02)
[2021-05-08 06:43] LABS: BASO % 0.2 % (0.0-1.0); HEMATOCRIT 39.9 % (37.0-47.0); LYMPH # 1.4 10*3/uL (1.3-4.4); LYMPH % 29.1 % (27.0-41.0); MEAN CELL VOLUME 101.8 fl (81.0-99.0); MEAN CORPUSCULAR HGB 32.7 pg (27.0-31.0); MEAN CORPUSCULAR HGB CONC 32.1 g/dl (33.0-37.0); MEAN PLATELET VOLUME 9.7 fl (9.6-12.3); MONO # 0.4 10*3/uL (0.1-1.0); MONO % 7.3 % (3.0-9.0); NEUT % 62.8 % (47.0-73.0); PLATELET COUNT AUTOMATED 235 10*3/uL (130-400); RED BLOOD COUNT 3.92 10*6/uL (4.10-5.10); RED CELL DISTRI WIDTH 13.1 % (0-14.5); WHITE BLOOD COUNT 4.8 10*3/uL (4.8-10.8)
[2021-05-08 08:00] VITALS: BP 148/74
[2021-05-08 09:16] LABS: VITAMIN D, 25-HYDROXY 61.1 ng/mL (30-100)
[2021-05-08 12:00] VITALS: BP 162/77
[2021-05-08 16:00] VITALS: BP 158/80
[2021-05-08 20:00] VITALS: BP 120/58
[2021-05-09] VITALS: BP 134/68
[2021-05-09 06:18] LABS: BUN 12 mg/dl (7-24); CHLORIDE 105 mmol/L (98-107); CREATININE 0.88 mg/dL (0.55-1.02); POTASSIUM 4.5 mmol/L (3.5-5.1); SODIUM 139 mmol/L (136-145)
[2021-05-09 06:20] LABS: HEMATOCRIT 35.7 % (37.0-47.0); LYMPH # 1.1 10*3/uL (1.3-4.4); LYMPH % 17.4 % (27.0-41.0); MEAN CELL VOLUME 102.9 fl (81.0-99.0); MEAN CORPUSCULAR HGB 33.4 pg (27.0-31.0); MEAN CORPUSCULAR HGB CONC 32.5 g/dl (33.0-37.0); MEAN PLATELET VOLUME 9.9 fl (9.6-12.3); MONO # 0.3 10*3/uL (0.1-1.0); MONO % 4.7 % (3.0-9.0); NEUT # 4.9 10*3/uL (2.3-7.9); NEUT % 77.4 % (47.0-73.0); PLATELET COUNT AUTOMATED 226 10*3/uL (130-400); RED BLOOD COUNT 3.47 10*6/uL (4.10-5.10); RED CELL DISTRI WIDTH 13.1 % (0-14.5); WHITE BLOOD COUNT 6.3 10*3/uL (4.8-10.8)
[2021-05-09 08:00] VITALS: BP 155/84
[2021-05-09 12:00] VITALS: BP 152/72
[2021-05-09 16:00] VITALS: BP 144/65
[2021-05-09 20:00] VITALS: BP 118/68
[2021-05-10] VITALS: BP 142/66
[2021-05-10 05:49] LABS: BUN 11 mg/dl (7-24); CHLORIDE 107 mmol/L (98-107); CREATININE 0.73 mg/dL (0.55-1.02); SODIUM 141 mmol/L (136-145)
[2021-05-10 06:11] LABS: BASO % 0.1 % (0.0-1.0); HEMATOCRIT 33.5 % (37.0-47.0); LYMPH # 1.3 10*3/uL (1.3-4.4); LYMPH % 11.9 % (27.0-41.0); MEAN CELL VOLUME 103.7 fl (81.0-99.0); MEAN CORPUSCULAR HGB 33.4 pg (27.0-31.0); MEAN CORPUSCULAR HGB CONC 32.2 g/dl (33.0-37.0); MONO # 0.9 10*3/uL (0.1-1.0); MONO % 8.2 % (3.0-9.0); NEUT % 79.4 % (47.0-73.0); PLATELET COUNT AUTOMATED 204 10*3/uL (130-400); RED BLOOD COUNT 3.23 10*6/uL (4.10-5.10); RED CELL DISTRI WIDTH 13.2 % (0-14.5); WHITE BLOOD COUNT 11.3 10*3/uL (4.8-10.8)
[2021-05-10 08:00] VITALS: BP 154/60
[2021-05-10 12:00] VITALS: BP 144/63
[2021-05-10 16:00] VITALS: BP 143/69
[2021-05-10 20:00] VITALS: BP 159/68
[2021-05-11] VITALS: BP 141/64
[2021-05-11 06:19] LABS: BASO % 0.2 % (0.0-1.0); HEMATOCRIT 35.5 % (37.0-47.0); LYMPH # 1.1 10*3/uL (1.3-4.4); LYMPH % 10.1 % (27.0-41.0); MEAN CELL VOLUME 104.1 fl (81.0-99.0); MEAN CORPUSCULAR HGB 33.4 pg (27.0-31.0); MEAN CORPUSCULAR HGB CONC 32.1 g/dl (33.0-37.0); MONO # 0.5 10*3/uL (0.1-1.0); MONO % 4.7 % (3.0-9.0); NEUT # 9.4 10*3/uL (2.3-7.9); NEUT % 84.3 % (47.0-73.0); PLATELET COUNT AUTOMATED 227 10*3/uL (130-400); RED BLOOD COUNT 3.41 10*6/uL (4.10-5.10); RED CELL DISTRI WIDTH 13.3 % (0-14.5); WHITE BLOOD COUNT 11.1 10*3/uL (4.8-10.8)
[2021-05-11 06:24] LABS: BUN 11 mg/dl (7-24); CHLORIDE 106 mmol/L (98-107); SODIUM 141 mmol/L (136-145)
[2021-05-11 06:25] LABS: CREATININE 0.75 mg/dL (0.55-1.02)
[2021-05-11 08:00] VITALS: BP 153/76
[2021-05-11 12:26] VITALS: BP 158/81
[2021-05-11 16:00] VITALS: BP 165/72
[2021-05-11 20:00] VITALS: BP 150/89
[2021-05-12] VITALS (8 sets, daily range): BP systolic 120–178; BP diastolic 55–85
[2021-05-12 05:56] LABS: BASO % 0.2 % (0.0-1.0); HEMATOCRIT 34.3 % (37.0-47.0); LYMPH # 1.5 10*3/uL (1.3-4.4); LYMPH % 12.5 % (27.0-41.0); MEAN CELL VOLUME 104.6 fl (81.0-99.0); MEAN CORPUSCULAR HGB 33.5 pg (27.0-31.0); MEAN CORPUSCULAR HGB CONC 32.1 g/dl (33.0-37.0); MONO # 0.6 10*3/uL (0.1-1.0); MONO % 5.2 % (3.0-9.0); NEUT # 9.5 10*3/uL (2.3-7.9); NEUT % 81.4 % (47.0-73.0); PLATELET COUNT AUTOMATED 230 10*3/uL (130-400); RED BLOOD COUNT 3.28 10*6/uL (4.10-5.10); RED CELL DISTRI WIDTH 13.2 % (0-14.5); WHITE BLOOD COUNT 11.6 10*3/uL (4.8-10.8)
[2021-05-12 06:04] LABS: BUN 14 mg/dl (7-24); CHLORIDE 106 mmol/L (98-107); CREATININE 0.71 mg/dL (0.55-1.02); POTASSIUM 4.2 mmol/L (3.5-5.1); SODIUM 141 mmol/L (136-145)
[2021-05-13] VITALS: BP 140/69
[2021-05-13 06:27] LABS: BUN 17 mg/dl (7-24); CHLORIDE 105 mmol/L (98-107); CREATININE 0.75 mg/dL (0.55-1.02); POTASSIUM 3.8 mmol/L (3.5-5.1); SODIUM 142 mmol/L (136-145)
[2021-05-13 06:30] LABS: BASO % 0.1 % (0.0-1.0); HEMATOCRIT 34.6 % (37.0-47.0); LYMPH # 1.7 10*3/uL (1.3-4.4); LYMPH % 14.6 % (27.0-41.0); MEAN CELL VOLUME 104.5 fl (81.0-99.0); MEAN CORPUSCULAR HGB 33.5 pg (27.0-31.0); MEAN CORPUSCULAR HGB CONC 32.1 g/dl (33.0-37.0); MONO # 0.6 10*3/uL (0.1-1.0); NEUT # 9.3 10*3/uL (2.3-7.9); NEUT % 79.4 % (47.0-73.0); PLATELET COUNT AUTOMATED 242 10*3/uL (130-400); RED BLOOD COUNT 3.31 10*6/uL (4.10-5.10); RED CELL DISTRI WIDTH 13.2 % (0-14.5); WHITE BLOOD COUNT 11.7 10*3/uL (4.8-10.8)
[2021-05-13 08:00] VITALS: BP 140/84
[2021-05-13 09:05] LABS: ACID FAST SPEC PROCESSING Concentration (.)
[2021-05-13 12:00] VITALS: BP 154/73
[2021-05-13 16:00] VITALS: BP 149/73
[2021-05-13 20:00] VITALS: BP 154/77
[2021-05-14] VITALS: BP 154/56
[2021-05-14 03:22] VITALS: BP 124/60
[2021-05-14 06:12] LABS: BASO % 0.3 % (0.0-1.0); EOS % 0.1 % (1.0-4.0); HEMATOCRIT 34.9 % (37.0-47.0); LYMPH # 2.5 10*3/uL (1.3-4.4); LYMPH % 22.9 % (27.0-41.0); MEAN CORPUSCULAR HGB CONC 32.4 g/dl (33.0-37.0); MEAN PLATELET VOLUME 9.6 fl (9.6-12.3); MONO # 0.9 10*3/uL (0.1-1.0); MONO % 8.6 % (3.0-9.0); NEUT # 7.4 10*3/uL (2.3-7.9); NEUT % 66.9 % (47.0-73.0); PLATELET COUNT AUTOMATED 231 10*3/uL (130-400); RED BLOOD COUNT 3.42 10*6/uL (4.10-5.10)
[2021-05-14 06:35] LABS: BUN 16 mg/dl (7-24); CHLORIDE 108 mmol/L (98-107); CREATININE 0.63 mg/dL (0.55-1.02); SODIUM 145 mmol/L (136-145)
[2021-05-14 08:00] VITALS: BP 137/78
[2021-05-14] MEDS ORDERED: Ventolin 02.5 MG/3 M INH (11:50)
[2021-05-14] MEDS ORDERED: PREDNISONE10 MG PO (11:50)
[2021-05-14 12:00] VITALS: BP 161/69
[2021-05-14 15:20] VITALS: BP 122/86
[2021-05-14 20:02] VITALS: BP 152/78
[2021-05-15] VITALS: BP 139/57
[2021-05-15 08:00] VITALS: BP 154/77
== END 2021-05-15 10:00 | disposition home or self-care (01) | DRG 189 ==
LOC: ED 12:15 → 5E 14:52 → EDHOLD 14:52 → 5E 15:20
PROVIDERS: Emergency Medicine; Internal Medicine; Internal Medicine Critical Care Medicine; Student in an Organized Health Care Education/Training Program; ADMIT Internal Medicine; ATTEND Internal Medicine
PROC: 0BC98ZZ Extirpation of Matter from Lingula Bronchus, Via Natural or Artificial Opening Endoscopic (ICD-10-PCS; principal; 2021-05-12)
PROC: 0BC48ZZ Extirpation of Matter from Right Upper Lobe Bronchus, Via Natural or Artificial Opening Endoscopic (ICD-10-PCS; 2021-05-12)
PROC: 0BC88ZZ Extirpation of Matter from Left Upper Lobe Bronchus, Via Natural or Artificial Opening Endoscopic (ICD-10-PCS; 2021-05-12)
PROC: 0BC58ZZ Extirpation of Matter from Right Middle Lobe Bronchus, Via Natural or Artificial Opening Endoscopic (ICD-10-PCS; 2021-05-12)
PROC: 0BC38ZZ Extirpation of Matter from Right Main Bronchus, Via Natural or Artificial Opening Endoscopic (ICD-10-PCS; 2021-05-12)
PROC: 0BC78ZZ Extirpation of Matter from Left Main Bronchus, Via Natural or Artificial Opening Endoscopic (ICD-10-PCS; 2021-05-12)
PROC: 0BC68ZZ Extirpation of Matter from Right Lower Lobe Bronchus, Via Natural or Artificial Opening Endoscopic (ICD-10-PCS; 2021-05-12)
PROC: 0BCB8ZZ Extirpation of Matter from Left Lower Lobe Bronchus, Via Natural or Artificial Opening Endoscopic (ICD-10-PCS; 2021-05-12)
PROC: 0BC18ZZ Extirpation of Matter from Trachea, Via Natural or Artificial Opening Endoscopic (ICD-10-PCS; 2021-05-12)
DX: J96.21 Acute and chronic respiratory failure with hypoxia (principal); J44.1 Chronic obstructive pulmonary disease with (acute) exacerbation; E44.0 Moderate protein-calorie malnutrition; T17.590A Other foreign object in bronchus causing asphyxiation, initial encounter; J44.0 Chronic obstructive pulmonary disease with (acute) lower respiratory infection; E83.41 Hypermagnesemia; J20.9 Acute bronchitis, unspecified; F17.210 Nicotine dependence, cigarettes, uncomplicated; K76.0 Fatty (change of) liver, not elsewhere classified; K21.9 Gastro-esophageal reflux disease without esophagitis; X58.XXXA Exposure to other specified factors, initial encounter; E78.5 Hyperlipidemia, unspecified; Y93.89 Activity, other specified; Y92.89 Other specified places as the place of occurrence of the external cause; Y99.8 Other external cause status; Z91.041 Radiographic dye allergy status; Z88.8 Allergy status to other drugs, medicaments and biological substances; Z71.6 Tobacco abuse counseling; Z82.49 Family history of ischemic heart disease and other diseases of the circulatory system; Z82.5 Family history of asthma and other chronic lower respiratory diseases; Z79.899 Other long term (current) drug therapy; Z79.51 Long term (current) use of inhaled steroids; Z90.710 Acquired absence of both cervix and uterus; Z90.49 Acquired absence of other specified parts of digestive tract; Z68.24 Body mass index [BMI] 24.0-24.9, adult

== ENCOUNTER 2021-07-16 08:05 | Inpatient (IN) | payer MEDICARE, OTHER ==
[~2021-07-16] VITALS: Ht 160 cm; Wt 60.4 kg
[2021-07-16 08:15] VITALS: BP 134/86
[2021-07-16 08:32] LABS: BASO # 0.1 10*3/uL (0.0-0.1); BASO % 0.6 % (0.0-1.0); EOS # 0.2 10*3/uL (0.0-0.4); EOS % 2.6 % (1.0-4.0); HEMATOCRIT 40.4 % (37.0-47.0); LYMPH # 2.2 10*3/uL (1.3-4.4); LYMPH % 26.9 % (27.0-41.0); MEAN CELL VOLUME 103.1 fl (81.0-99.0); MEAN CORPUSCULAR HGB 33.2 pg (27.0-31.0); MEAN CORPUSCULAR HGB CONC 32.2 g/dl (33.0-37.0); MEAN PLATELET VOLUME 9.4 fl (9.6-12.3); MONO # 0.6 10*3/uL (0.1-1.0); MONO % 7.8 % (3.0-9.0); NEUT # 4.9 10*3/uL (2.3-7.9); NEUT % 61.6 % (47.0-73.0); PLATELET COUNT AUTOMATED 360 10*3/uL (130-400); RED BLOOD COUNT 3.92 10*6/uL (4.10-5.10); RED CELL DISTRI WIDTH 14.4 % (0-14.5)
[2021-07-16 08:43] LABS: ACT PARTIAL THROMBO TIME 27.1 SECONDS (20.0-32.1); INTERNATIONAL NORM RATIO 0.9 (2.0-3.5)
[2021-07-16 08:49] LABS: ALKALINE PHOSPHATASE 121 U/L (45-117); BUN 5 mg/dl (7-24); CHLORIDE 101 mmol/L (98-107); CREATININE 0.67 mg/dL (0.55-1.02); LIPASE 95 U/L (73-393); POTASSIUM 3.7 mmol/L (3.5-5.1); SGOT/AST 22 IU/L (3-35); SGPT/ALT 19 U/L (12-78); SODIUM 138 mmol/L (136-145); TOTAL PROTEIN 6.4 gm/dL (6.4-8.2)
[2021-07-16 09:17] LABS: BILIRUBIN Negative (Negative); BLOOD 1+ (Negative); CLARITY Turbid (Clear); COLOR Yellow (Yellow); GLUCOSE Negative (Negative); KETONE Negative (Negative); LEUKO ESTERASE 3+ (Negative); NITRITE Positive (Negative); PH 6.5 (4.5-8.0); UROBILINOGEN 0.2 E.U./dl (0.0-1.0)
[2021-07-16 09:38] LABS: WBC TNTC wbc/hpf (0-5)
[2021-07-16 14:10] VITALS: BP 153/76
[2021-07-16 16:00] VITALS: BP 154/87
[2021-07-16 20:00] VITALS: BP 149/75
[2021-07-17] VITALS: BP 141/79
[2021-07-17 06:07] LABS: BUN 8 mg/dl (7-24); CHLORIDE 102 mmol/L (98-107); CREATININE 0.64 mg/dL (0.55-1.02); POTASSIUM 3.9 mmol/L (3.5-5.1); SGOT/AST 15 IU/L (3-35); SGPT/ALT 16 U/L (12-78); SODIUM 138 mmol/L (136-145)
[2021-07-17 06:08] LABS: ALKALINE PHOSPHATASE 97 U/L (45-117); TOTAL PROTEIN 5.7 gm/dL (6.4-8.2)
[2021-07-17 06:12] LABS: BASO % 0.2 % (0.0-1.0); HEMATOCRIT 35.1 % (37.0-47.0); LYMPH % 21.3 % (27.0-41.0); MEAN CELL VOLUME 102.3 fl (81.0-99.0); MEAN CORPUSCULAR HGB 32.7 pg (27.0-31.0); MEAN CORPUSCULAR HGB CONC 31.9 g/dl (33.0-37.0); MEAN PLATELET VOLUME 9.9 fl (9.6-12.3); MONO # 0.1 10*3/uL (0.1-1.0); MONO % 1.7 % (3.0-9.0); NEUT # 3.6 10*3/uL (2.3-7.9); NEUT % 76.2 % (47.0-73.0); PLATELET COUNT AUTOMATED 357 10*3/uL (130-400); RED BLOOD COUNT 3.43 10*6/uL (4.10-5.10); RED CELL DISTRI WIDTH 13.9 % (0-14.5); WHITE BLOOD COUNT 4.8 10*3/uL (4.8-10.8)
[2021-07-17 08:00] VITALS: BP 133/73
[2021-07-17 12:00] VITALS: BP 152/78
[2021-07-17 16:00] VITALS: BP 130/70
[2021-07-17 20:00] VITALS: BP 146/71
[2021-07-18] VITALS: BP 148/76
[2021-07-18 04:00] VITALS: BP 152/78
[2021-07-18 06:23] LABS: BASO % 0.1 % (0.0-1.0); HEMATOCRIT 32.7 % (37.0-47.0); LYMPH % 11.7 % (27.0-41.0); MEAN CELL VOLUME 103.5 fl (81.0-99.0); MEAN CORPUSCULAR HGB 32.6 pg (27.0-31.0); MEAN CORPUSCULAR HGB CONC 31.5 g/dl (33.0-37.0); MEAN PLATELET VOLUME 10.2 fl (9.6-12.3); MONO # 0.4 10*3/uL (0.1-1.0); MONO % 4.7 % (3.0-9.0); NEUT # 7.3 10*3/uL (2.3-7.9); NEUT % 82.9 % (47.0-73.0); PLATELET COUNT AUTOMATED 323 10*3/uL (130-400); RED BLOOD COUNT 3.16 10*6/uL (4.10-5.10); RED CELL DISTRI WIDTH 13.9 % (0-14.5); WHITE BLOOD COUNT 8.7 10*3/uL (4.8-10.8)
[2021-07-18 08:00] VITALS: BP 138/70
[2021-07-18 12:00] VITALS: BP 127/70
[2021-07-18 16:00] VITALS: BP 122/72
[2021-07-18 20:00] VITALS: BP 145/70
[2021-07-19] VITALS: BP 173/77
[2021-07-19 06:25] LABS: BASO % 0.1 % (0.0-1.0); HEMATOCRIT 31.8 % (37.0-47.0); LYMPH % 9.5 % (27.0-41.0); MEAN CORPUSCULAR HGB CONC 31.4 g/dl (33.0-37.0); MEAN PLATELET VOLUME 9.8 fl (9.6-12.3); MONO # 0.4 10*3/uL (0.1-1.0); MONO % 3.2 % (3.0-9.0); NEUT # 9.3 10*3/uL (2.3-7.9); NEUT % 86.1 % (47.0-73.0); PLATELET COUNT AUTOMATED 349 10*3/uL (130-400); RED BLOOD COUNT 3.03 10*6/uL (4.10-5.10); WHITE BLOOD COUNT 10.8 10*3/uL (4.8-10.8)
[2021-07-19 06:27] LABS: BUN 17 mg/dl (7-24); CHLORIDE 102 mmol/L (98-107); CREATININE 0.79 mg/dL (0.55-1.02); POTASSIUM 4.2 mmol/L (3.5-5.1); SODIUM 138 mmol/L (136-145)
[2021-07-19 08:00] VITALS: BP 152/62
[2021-07-19 12:00] VITALS: BP 143/63
[2021-07-19 15:39] VITALS: BP 130/71
[2021-07-19 20:00] VITALS: BP 144/71
[2021-07-20] VITALS: BP 156/74
[2021-07-20 06:14] LABS: BUN 14 mg/dl (7-24); CHLORIDE 100 mmol/L (98-107); CREATININE 0.65 mg/dL (0.55-1.02); POTASSIUM 4.2 mmol/L (3.5-5.1); SODIUM 136 mmol/L (136-145)
[2021-07-20 06:21] LABS: BASO % 0.2 % (0.0-1.0); HEMATOCRIT 31.1 % (37.0-47.0); LYMPH # 0.9 10*3/uL (1.3-4.4); LYMPH % 7.6 % (27.0-41.0); MEAN CELL VOLUME 105.8 fl (81.0-99.0); MEAN CORPUSCULAR HGB CONC 32.2 g/dl (33.0-37.0); MEAN PLATELET VOLUME 10.7 fl (9.6-12.3); MONO # 0.5 10*3/uL (0.1-1.0); MONO % 4.4 % (3.0-9.0); NEUT # 9.8 10*3/uL (2.3-7.9); NEUT % 87.1 % (47.0-73.0); PLATELET COUNT AUTOMATED 314 10*3/uL (130-400); RED BLOOD COUNT 2.94 10*6/uL (4.10-5.10); RED CELL DISTRI WIDTH 14.2 % (0-14.5); WHITE BLOOD COUNT 11.2 10*3/uL (4.8-10.8)
[2021-07-20 08:00] VITALS: BP 155/78
[2021-07-20 12:00] VITALS: BP 154/70
[2021-07-20] MEDS ORDERED: ERTAPENEM1 GM IV (12:48)
[2021-07-20 16:00] VITALS: BP 142/66
[2021-07-20 20:00] VITALS: BP 159/57
[2021-07-21] VITALS: BP 131/65
[2021-07-21 08:00] VITALS: BP 158/74
[2021-07-21 11:59] VITALS: BP 156/72
[2021-07-21 16:00] VITALS: BP 151/61
[2021-07-21 20:00] VITALS: BP 151/79
[2021-07-22] VITALS: BP 148/75
[2021-07-22 08:00] VITALS: BP 140/76
[2021-07-22 12:00] VITALS: BP 152/61
[2021-07-22] MEDS ORDERED: ERTAPENEM1 GM IV (12:06)
[2021-07-22 16:00] VITALS: BP 160/68
[2021-07-22 20:00] VITALS: BP 143/56
[2021-07-23] VITALS: BP 128/59
[2021-07-23 08:00] VITALS: BP 148/70
[2021-07-23] MEDS ORDERED: PREDNISONE10 MG PO (10:52)
[2021-07-23 12:00] VITALS: BP 155/69
[2021-07-23 16:00] VITALS: BP 135/64
[2021-07-23 20:00] VITALS: BP 142/76
[2021-07-24] VITALS: BP 134/63
[2021-07-24 08:00] VITALS: BP 154/64
[2021-07-24 12:00] VITALS: BP 144/88
== END 2021-07-24 12:10 | disposition home or self-care (01) | DRG 190 ==
LOC: ED 08:05 → EDHOLD 12:30 → 4E 12:30
PROVIDERS: Emergency Medicine; Internal Medicine; Registered Nurse; ADMIT Student in an Organized Health Care Education/Training Program; ATTEND Student in an Organized Health Care Education/Training Program
PROC: 05HB33Z Insertion of Infusion Device into Right Basilic Vein, Percutaneous Approach (ICD-10-PCS; principal; 2021-07-22)
DX: J44.0 Chronic obstructive pulmonary disease with (acute) lower respiratory infection (principal); E43 Unspecified severe protein-calorie malnutrition; N30.01 Acute cystitis with hematuria; J96.11 Chronic respiratory failure with hypoxia; Z16.12 Extended spectrum beta lactamase (ESBL) resistance; J44.1 Chronic obstructive pulmonary disease with (acute) exacerbation; K21.9 Gastro-esophageal reflux disease without esophagitis; K76.0 Fatty (change of) liver, not elsewhere classified; F41.9 Anxiety disorder, unspecified; B96.20 Unspecified Escherichia coli [E. coli] as the cause of diseases classified elsewhere; K59.00 Constipation, unspecified; E78.5 Hyperlipidemia, unspecified; J20.9 Acute bronchitis, unspecified; F17.210 Nicotine dependence, cigarettes, uncomplicated; Z91.041 Radiographic dye allergy status; Z88.8 Allergy status to other drugs, medicaments and biological substances; Z79.899 Other long term (current) drug therapy; Z82.49 Family history of ischemic heart disease and other diseases of the circulatory system; Z68.23 Body mass index [BMI] 23.0-23.9, adult; Z99.81 Dependence on supplemental oxygen; Z82.5 Family history of asthma and other chronic lower respiratory diseases; Z90.49 Acquired absence of other specified parts of digestive tract; Z90.710 Acquired absence of both cervix and uterus; Z79.51 Long term (current) use of inhaled steroids; Z79.1 Long term (current) use of non-steroidal anti-inflammatories (NSAID)

== ENCOUNTER → 2021-08-02 | Outpatient (CLI) | payer MEDICARE, OTHER ==
[~2021-08-02] MED LIST changes: +ERTAPENEM1 GM IV
[2021-08-02 12:27] LABS: BASO % 0.2 % (0.0-1.0); EOS % 0.3 % (1.0-4.0); HEMATOCRIT 36.6 % (37.0-47.0); LYMPH # 2.8 10*3/uL (1.3-4.4); LYMPH % 27.6 % (27.0-41.0); MEAN CELL VOLUME 102.2 fl (81.0-99.0); MEAN CORPUSCULAR HGB CONC 32.2 g/dl (33.0-37.0); MEAN PLATELET VOLUME 9.2 fl (9.6-12.3); MONO # 0.7 10*3/uL (0.1-1.0); MONO % 7.1 % (3.0-9.0); NEUT # 6.6 10*3/uL (2.3-7.9); NEUT % 64.5 % (47.0-73.0); PLATELET COUNT AUTOMATED 222 10*3/uL (130-400); RED BLOOD COUNT 3.58 10*6/uL (4.10-5.10); RED CELL DISTRI WIDTH 13.8 % (0-14.5); WHITE BLOOD COUNT 10.3 10*3/uL (4.8-10.8)
[2021-08-02 12:40] LABS: BUN 7 mg/dl (7-24); CHLORIDE 107 mmol/L (98-107); SODIUM 142 mmol/L (136-145)
== END | disposition home or self-care (01) ==
LOC: LAB 11:26
PROVIDERS: ATTEND Registered Nurse
DX: D72.829 Elevated white blood cell count, unspecified (principal); E87.6 Hypokalemia

== ENCOUNTER 2021-08-26 11:18 | Emergency (ER) | payer MEDICARE, OTHER ==
[~2021-08-26] VITALS: Ht 160 cm; Wt 61.7 kg
== END 2021-08-26 12:39 | disposition home or self-care (01) ==
LOC: ED 11:18
DX: S60.511A Abrasion of right hand, initial encounter (principal); S40.212A Abrasion of left shoulder, initial encounter; S80.212A Abrasion, left knee, initial encounter; F17.200 Nicotine dependence, unspecified, uncomplicated; Z90.710 Acquired absence of both cervix and uterus; Z90.49 Acquired absence of other specified parts of digestive tract; Z91.041 Radiographic dye allergy status; Z88.8 Allergy status to other drugs, medicaments and biological substances; W01.0XXA Fall on same level from slipping, tripping and stumbling without subsequent striking against object, initial encounter; Y93.01 Activity, walking, marching and hiking; Y92.89 Other specified places as the place of occurrence of the external cause; Y99.9 Unspecified external cause status

== ENCOUNTER 2021-12-18 10:06 | Inpatient (IN) | payer MEDICARE, OTHER ==
[~2021-12-18] VITALS: Ht 154.9 cm; Wt 64.5 kg
[2021-12-18 10:13] VITALS: BP 153/83
[2021-12-18 10:53] LABS: BASO % 0.4 % (0.0-1.0); EOS % 0.4 % (1.0-4.0); HEMATOCRIT 32.7 % (37.0-47.0); LYMPH # 1.8 10*3/uL (1.3-4.4); LYMPH % 22.3 % (27.0-41.0); MEAN CELL VOLUME 98.2 fl (81.0-99.0); MEAN CORPUSCULAR HGB 32.7 pg (27.0-31.0); MEAN CORPUSCULAR HGB CONC 33.3 g/dl (33.0-37.0); MEAN PLATELET VOLUME 9.7 fl (9.6-12.3); MONO # 0.7 10*3/uL (0.1-1.0); MONO % 9.4 % (3.0-9.0); NEUT # 5.3 10*3/uL (2.3-7.9); NEUT % 67.1 % (47.0-73.0); PLATELET COUNT AUTOMATED 164 10*3/uL (130-400); RED BLOOD COUNT 3.33 10*6/uL (4.10-5.10); RED CELL DISTRI WIDTH 12.7 % (0-14.5); WHITE BLOOD COUNT 7.9 10*3/uL (4.8-10.8)
[2021-12-18 11:03] LABS: ACT PARTIAL THROMBO TIME 30.9 SECONDS (20.0-32.1); INTERNATIONAL NORM RATIO 0.9 (2.0-3.5)
[2021-12-18 11:08] LABS: ALKALINE PHOSPHATASE 74 U/L (45-117); BUN 10 mg/dl (7-24); CHLORIDE 102 mmol/L (98-107); CREATININE 0.86 mg/dL (0.55-1.02); LIPASE 47 U/L (73-393); POTASSIUM 3.2 mmol/L (3.5-5.1); SGOT/AST 15 IU/L (3-35); SGPT/ALT 14 U/L (12-78); SODIUM 136 mmol/L (136-145); TOTAL PROTEIN 6.6 gm/dL (6.4-8.2)
[2021-12-18] MEDS ORDERED: MYRBETRIQ25 M1 PO (12:01)
[2021-12-18] MEDS ORDERED: ESTRADIOL42.5 GM V (12:04)
[2021-12-18 14:07] VITALS: BP 151/84
[2021-12-18 15:40] VITALS: BP 158/64
[2021-12-18 20:00] VITALS: BP 169/70
[2021-12-19] VITALS: BP 115/71
[2021-12-19 00:55] LABS: BILIRUBIN Negative (Negative); BLOOD Trace-Lysed (Negative); CLARITY Clear (Clear); COLOR Yellow (Yellow); GLUCOSE Negative (Negative); KETONE Negative (Negative); LEUKO ESTERASE 3+ (Negative); NITRITE Negative (Negative); PH 6.5 (4.5-8.0); UROBILINOGEN 0.2 E.U./dl (0.0-1.0)
[2021-12-19 01:33] LABS: WBC 41-50 wbc/hpf (0-5)
[2021-12-19 06:13] LABS: BASO % 0.5 % (0.0-1.0); EOS % 0.5 % (1.0-4.0); LYMPH # 1.2 10*3/uL (1.3-4.4); LYMPH % 27.8 % (27.0-41.0); MEAN CELL VOLUME 102.9 fl (81.0-99.0); MEAN CORPUSCULAR HGB 32.8 pg (27.0-31.0); MEAN CORPUSCULAR HGB CONC 31.9 g/dl (33.0-37.0); MEAN PLATELET VOLUME 9.9 fl (9.6-12.3); MONO # 0.6 10*3/uL (0.1-1.0); NEUT # 2.4 10*3/uL (2.3-7.9); NEUT % 55.7 % (47.0-73.0); PLATELET COUNT AUTOMATED 164 10*3/uL (130-400); RED BLOOD COUNT 3.11 10*6/uL (4.10-5.10); RED CELL DISTRI WIDTH 12.6 % (0-14.5); WHITE BLOOD COUNT 4.3 10*3/uL (4.8-10.8)
[2021-12-19 06:16] LABS: BUN 11 mg/dl (7-24); CHLORIDE 107 mmol/L (98-107); CHOLESTEROL 118 mg/dL (<200); CREATININE 1.03 mg/dL (0.55-1.02); LDL CHOLESTEROL 36 mg/dL (9-159); POTASSIUM 3.5 mmol/L (3.5-5.1); SGOT/AST 18 IU/L (3-35); SGPT/ALT 14 U/L (12-78); SODIUM 142 mmol/L (136-145); TOTAL PROTEIN 6.4 gm/dL (6.4-8.2); TRIGLYCERIDES 91 mg/dl (<150)
[2021-12-19 06:22] LABS: ALKALINE PHOSPHATASE 62 U/L (45-117); FREE T4 0.84 ng/dl (0.76-1.46)
[2021-12-19 10:30] VITALS: BP 127/53
[2021-12-19 10:52] VITALS: BP 127/53
[2021-12-19 12:00] VITALS: BP 136/65
[2021-12-19 16:00] VITALS: BP 134/57
[2021-12-19 20:00] VITALS: BP 141/48
[2021-12-20] VITALS: BP 138/55
[2021-12-20 05:47] LABS: BUN 8 mg/dl (7-24); CHLORIDE 112 mmol/L (98-107); CREATININE 0.98 mg/dL (0.55-1.02); POTASSIUM 3.6 mmol/L (3.5-5.1); SODIUM 145 mmol/L (136-145)
[2021-12-20 06:40] LABS: BASO % 0.5 % (0.0-1.0); EOS # 0.2 10*3/uL (0.0-0.4); EOS % 4.2 % (1.0-4.0); HEMATOCRIT 30.9 % (37.0-47.0); LYMPH # 1.3 10*3/uL (1.3-4.4); LYMPH % 31.2 % (27.0-41.0); MEAN CORPUSCULAR HGB 32.3 pg (27.0-31.0); MEAN CORPUSCULAR HGB CONC 31.4 g/dl (33.0-37.0); MONO # 0.5 10*3/uL (0.1-1.0); MONO % 13.2 % (3.0-9.0); NEUT % 50.7 % (47.0-73.0); PLATELET COUNT AUTOMATED 177 10*3/uL (130-400); RED CELL DISTRI WIDTH 12.8 % (0-14.5)
[2021-12-20 08:00] VITALS: BP 142/65
[2021-12-20 12:00] VITALS: BP 153/78
[2021-12-20 16:00] VITALS: BP 152/63
[2021-12-20 20:00] VITALS: BP 108/55
[2021-12-21] VITALS: BP 124/50
[2021-12-21 07:36] LABS: HEMATOCRIT 31.2 % (37.0-47.0); MEAN CORPUSCULAR HGB 32.4 pg (27.0-31.0); MEAN CORPUSCULAR HGB CONC 32.1 g/dl (33.0-37.0); MEAN PLATELET VOLUME 9.8 fl (9.6-12.3); PLATELET COUNT AUTOMATED 171 10*3/uL (130-400); RED BLOOD COUNT 3.09 10*6/uL (4.10-5.10); RED CELL DISTRI WIDTH 12.8 % (0-14.5)
[2021-12-21 07:40] LABS: MANUAL DIFF REFLEX YES
[2021-12-21 07:53] LABS: BUN 8 mg/dl (7-24); CHLORIDE 110 mmol/L (98-107); CREATININE 0.76 mg/dL (0.55-1.02); POTASSIUM 3.7 mmol/L (3.5-5.1); SODIUM 142 mmol/L (136-145)
[2021-12-21 08:00] VITALS: BP 137/59
[2021-12-21 08:01] LABS: BURR CELLS FEW; PLATELET SUFFICIENCY NORMAL (NORMAL); POLYCHROMASIA SLIGHT; TOTAL CELLS COUNTED 100 #CELLS
[2021-12-21 08:05] LABS: WHITE BLOOD COUNT 1.9 10*3/uL (4.8-10.8)
[2021-12-21 12:00] VITALS: BP 165/78
[2021-12-21 16:00] VITALS: BP 160/71
[2021-12-21 20:00] VITALS: BP 155/74
[2021-12-22] VITALS: BP 160/78
[2021-12-22 07:06] LABS: HEMATOCRIT 31.4 % (37.0-47.0); MEAN CELL VOLUME 101.6 fl (81.0-99.0); MEAN CORPUSCULAR HGB CONC 31.5 g/dl (33.0-37.0); MEAN PLATELET VOLUME 10.2 fl (9.6-12.3); PLATELET COUNT AUTOMATED 207 10*3/uL (130-400); RED BLOOD COUNT 3.09 10*6/uL (4.10-5.10); RED CELL DISTRI WIDTH 12.6 % (0-14.5); WHITE BLOOD COUNT 3.1 10*3/uL (4.8-10.8)
[2021-12-22 07:07] LABS: MANUAL DIFF REFLEX YES
[2021-12-22 07:25] LABS: BUN 12 mg/dl (7-24); CHLORIDE 113 mmol/L (98-107); POTASSIUM 3.5 mmol/L (3.5-5.1); SODIUM 145 mmol/L (136-145)
[2021-12-22 07:44] LABS: OVALOCYTES FEW; PLATELET SUFFICIENCY NORMAL (NORMAL); POLYCHROMASIA SLIGHT; TOTAL CELLS COUNTED 100 #CELLS
[2021-12-22 08:00] VITALS: BP 161/91
[2021-12-22 12:00] VITALS: BP 156/76
[2021-12-22 16:00] VITALS: BP 160/80
[2021-12-22 20:00] VITALS: BP 166/71
[2021-12-23] VITALS: BP 165/75
[2021-12-23 07:26] LABS: BASO % 0.2 % (0.0-1.0); HEMATOCRIT 31.3 % (37.0-47.0); LYMPH # 1.3 10*3/uL (1.3-4.4); LYMPH % 31.6 % (27.0-41.0); MEAN CELL VOLUME 102.6 fl (81.0-99.0); MEAN CORPUSCULAR HGB 32.1 pg (27.0-31.0); MEAN CORPUSCULAR HGB CONC 31.3 g/dl (33.0-37.0); MEAN PLATELET VOLUME 9.8 fl (9.6-12.3); MONO # 0.3 10*3/uL (0.1-1.0); MONO % 7.3 % (3.0-9.0); NEUT # 2.5 10*3/uL (2.3-7.9); NEUT % 60.2 % (47.0-73.0); PLATELET COUNT AUTOMATED 205 10*3/uL (130-400); RED BLOOD COUNT 3.05 10*6/uL (4.10-5.10); RED CELL DISTRI WIDTH 12.7 % (0-14.5); WHITE BLOOD COUNT 4.1 10*3/uL (4.8-10.8)
[2021-12-23 08:00] VITALS: BP 166/81
[2021-12-23 09:57] LABS: CHLORIDE 111 mmol/L (98-107); POTASSIUM 3.1 mmol/L (3.5-5.1); SODIUM 145 mmol/L (136-145)
[2021-12-23 10:09] LABS: BUN 14 mg/dl (7-24)
[2021-12-23 12:00] VITALS: BP 171/78
[2021-12-23 16:00] VITALS: BP 176/75
[2021-12-23 20:00] VITALS: BP 173/68
[2021-12-23 22:00] VITALS: BP 177/77
[2021-12-24 07:17] LABS: CHLORIDE 114 mmol/L (98-107); POTASSIUM 3.5 mmol/L (3.5-5.1); SODIUM 148 mmol/L (136-145)
[2021-12-24 07:23] LABS: BASO % 0.2 % (0.0-1.0); HEMATOCRIT 34.4 % (37.0-47.0); LYMPH # 1.9 10*3/uL (1.3-4.4); MEAN CELL VOLUME 101.2 fl (81.0-99.0); MEAN CORPUSCULAR HGB 31.8 pg (27.0-31.0); MEAN CORPUSCULAR HGB CONC 31.4 g/dl (33.0-37.0); MEAN PLATELET VOLUME 9.9 fl (9.6-12.3); MONO # 0.4 10*3/uL (0.1-1.0); MONO % 6.9 % (3.0-9.0); NEUT # 2.9 10*3/uL (2.3-7.9); NEUT % 55.5 % (47.0-73.0); PLATELET COUNT AUTOMATED 265 10*3/uL (130-400); RED CELL DISTRI WIDTH 12.7 % (0-14.5); WHITE BLOOD COUNT 5.2 10*3/uL (4.8-10.8)
[2021-12-24 07:28] LABS: ALKALINE PHOSPHATASE 65 U/L (45-117); BUN 15 mg/dl (7-24); CREATININE 0.88 mg/dL (0.55-1.02); SGOT/AST 30 IU/L (3-35); SGPT/ALT 36 U/L (12-78); TOTAL PROTEIN 6.4 gm/dL (6.4-8.2)
[2021-12-24 08:00] VITALS: BP 141/78
[2021-12-24 12:00] VITALS: BP 147/85
[2021-12-24] MEDS ORDERED: ZITHROMAX250 MG PO (13:41)
[2021-12-24] MEDS ORDERED: PREDNISONE10 MG PO (13:41)
[2021-12-24] MEDS ORDERED: ZESTRIL,PRINIVIL5 MG PO (13:45)
== END 2021-12-24 14:30 | disposition home or self-care (01) | DRG 177 ==
LOC: ED 10:06 → 5E 11:55 → EDHOLD 11:55 → 5E 13:46
PROVIDERS: Emergency Medicine; Internal Medicine; ADMIT Internal Medicine; ATTEND Internal Medicine
DX: J15.6 Pneumonia due to other Gram-negative bacteria (principal); E43 Unspecified severe protein-calorie malnutrition; J44.1 Chronic obstructive pulmonary disease with (acute) exacerbation; J96.11 Chronic respiratory failure with hypoxia; F41.9 Anxiety disorder, unspecified; K21.9 Gastro-esophageal reflux disease without esophagitis; D64.9 Anemia, unspecified; E87.6 Hypokalemia; I10 Essential (primary) hypertension; F17.210 Nicotine dependence, cigarettes, uncomplicated; R91.1 Solitary pulmonary nodule; G47.00 Insomnia, unspecified; Z88.8 Allergy status to other drugs, medicaments and biological substances; Z91.041 Radiographic dye allergy status; Z90.710 Acquired absence of both cervix and uterus; Z82.49 Family history of ischemic heart disease and other diseases of the circulatory system; Z83.6 Family history of other diseases of the respiratory system; Z71.6 Tobacco abuse counseling; Z68.26 Body mass index [BMI] 26.0-26.9, adult

== ENCOUNTER → 2022-03-02 | Outpatient (CLI) | payer MEDICARE, OTHER ==
[~2022-03-02] MED LIST changes: +ESTRADIOL42.5 GM V; +MYRBETRIQ25 M1 PO; +ZESTRIL,PRINIVIL5 MG PO
[2022-03-02 14:46] LABS: BUN 6 mg/dl (9-23); POTASSIUM 3.7 mmol/L (3.4-5.1)
== END | disposition home or self-care (01) ==
LOC: LAB 13:42
PROVIDERS: ATTEND Specialist
DX: Z01.818 Encounter for other preprocedural examination (principal); R91.8 Other nonspecific abnormal finding of lung field

== ENCOUNTER → 2022-03-03 | Outpatient (CLI) | payer MEDICARE, OTHER ==
[2022-03-03 14:06] LABS: BASO # 0.1 10*3/uL (0.0-0.1); BASO % 0.9 % (0.0-1.0); EOS # 0.2 10*3/uL (0.0-0.4); EOS % 3.2 % (1.0-4.0); HEMATOCRIT 37.2 % (37.0-47.0); LYMPH # 2.6 10*3/uL (1.3-4.4); LYMPH % 37.5 % (27.0-41.0); MEAN CELL VOLUME 102.8 fl (81.0-99.0); MEAN CORPUSCULAR HGB 32.3 pg (27.0-31.0); MEAN CORPUSCULAR HGB CONC 31.5 g/dl (33.0-37.0); MEAN PLATELET VOLUME 9.9 fl (9.6-12.3); MONO # 0.5 10*3/uL (0.1-1.0); MONO % 6.7 % (3.0-9.0); NEUT # 3.5 10*3/uL (2.3-7.9); NEUT % 51.4 % (47.0-73.0); PLATELET COUNT AUTOMATED 311 10*3/uL (130-400); RED BLOOD COUNT 3.62 10*6/uL (4.10-5.10); RED CELL DISTRI WIDTH 13.7 % (0-14.5); WHITE BLOOD COUNT 6.8 10*3/uL (4.8-10.8)
[2022-03-03 14:10] LABS: BILIRUBIN Negative (Negative); BLOOD 2+ (Negative); CLARITY Turbid (Clear); COLOR Yellow (Yellow); GLUCOSE Negative (Negative); KETONE Negative (Negative); LEUKO ESTERASE 3+ (Negative); NITRITE Positive (Negative); UROBILINOGEN 0.2 E.U./dl (0.0-1.0)
[2022-03-03 14:21] LABS: ALKALINE PHOSPHATASE 89 U/L (46-116); BACTERIA 2+; BUN 9 mg/dl (9-23); CHLORIDE 100 mmol/L (98-107); POTASSIUM 3.7 mmol/L (3.4-5.1); RBC 16-20 rbc/hpf (0-2); SGPT/ALT 12 U/L (10-49); TOTAL PROTEIN 6.8 gm/dL (6.0-8.0); WBC TNTC wbc/hpf (0-5)
== END | disposition home or self-care (01) ==
LOC: CT 13:00 → LAB 13:22
PROVIDERS: ATTEND Urology
DX: I71.40 Abdominal aortic aneurysm, without rupture, unspecified (principal); N39.0 Urinary tract infection, site not specified; M85.88 Other specified disorders of bone density and structure, other site; M47.819 Spondylosis without myelopathy or radiculopathy, site unspecified; M84.48XA Pathological fracture, other site, initial encounter for fracture

== ENCOUNTER → 2022-04-29 | Outpatient (CLI) | payer MEDICARE, OTHER | END | disposition home or self-care (01) | LOC: CT 10:58 | PROVIDERS: ATTEND Internal Medicine Critical Care Medicine | DX: J43.2 Centrilobular emphysema (principal); I25.10 Atherosclerotic heart disease of native coronary artery without angina pectoris; I70.0 Atherosclerosis of aorta ==

== ENCOUNTER 2022-05-05 19:38 | Emergency (ER) | payer MEDICARE, OTHER ==
[~2022-05-05] VITALS: Ht 154.9 cm; Wt 64.0 kg
== END 2022-05-05 20:59 | disposition home or self-care (01) ==
LOC: ED 19:38
DX: S41.111A Laceration without foreign body of right upper arm, initial encounter (principal); Z91.041 Radiographic dye allergy status; Z88.8 Allergy status to other drugs, medicaments and biological substances; Z79.899 Other long term (current) drug therapy; Z90.49 Acquired absence of other specified parts of digestive tract; Z90.710 Acquired absence of both cervix and uterus; F17.200 Nicotine dependence, unspecified, uncomplicated; W18.39XA Other fall on same level, initial encounter; Y93.89 Activity, other specified; Y92.89 Other specified places as the place of occurrence of the external cause; Y99.8 Other external cause status

== ENCOUNTER → 2022-09-04 | Outpatient (CLI) | payer MEDICARE, OTHER | END | disposition home or self-care (01) | LOC: US 02:23 | PROVIDERS: ATTEND Surgery Vascular Surgery | DX: I71.40 Abdominal aortic aneurysm, without rupture, unspecified (principal); I10 Essential (primary) hypertension; M54.50 Low back pain, unspecified ==

== ENCOUNTER → 2022-09-06 | Day surgery (SDC) | payer MEDICARE, OTHER ==
[~2022-09-06] VITALS: Ht 154.9 cm; Wt 63.0 kg
[2022-09-06 10:59] VITALS: BP 120/60
[2022-09-06 12:01] VITALS: BP 156/75
[2022-09-06 12:16] VITALS: BP 156/66
[2022-09-06 12:22] VITALS: BP 153/72
== END ==
LOC: SDC 09-03 11:00
PROVIDERS: ATTEND Surgery
DX: Z12.11 Encounter for screening for malignant neoplasm of colon (principal); K21.9 Gastro-esophageal reflux disease without esophagitis; K29.50 Unspecified chronic gastritis without bleeding; J44.9 Chronic obstructive pulmonary disease, unspecified; Z90.49 Acquired absence of other specified parts of digestive tract; Z90.710 Acquired absence of both cervix and uterus; Z98.890 Other specified postprocedural states; Z79.899 Other long term (current) drug therapy
CPT/HCPCS: 00813; 43239; G0121

== ENCOUNTER → 2023-05-02 | Outpatient (CLI) | payer MEDICARE, OTHER ==
[~2023-05-02] MED LIST changes: +LISINOPRIL10 M1 PO; +OMEPRAZOLE MAGN20 MG PO; +ZOLOFT100 MG PO
[2023-05-02 13:19] LABS: BASO % 0.7 % (0.0-1.0); EOS # 0.4 10*3/uL (0.0-0.4); EOS % 6.2 % (1.0-4.0); HEMATOCRIT 32.8 % (37.0-47.0); LYMPH # 2.5 10*3/uL (1.3-4.4); LYMPH % 40.3 % (27.0-41.0); MEAN CORPUSCULAR HGB 33.2 pg (27.0-31.0); MEAN CORPUSCULAR HGB CONC 33.2 g/dl (33.0-37.0); MEAN PLATELET VOLUME 8.9 fl (9.6-12.3); MONO # 0.6 10*3/uL (0.1-1.0); MONO % 9.3 % (3.0-9.0); NEUT # 2.6 10*3/uL (2.3-7.9); NEUT % 42.8 % (47.0-73.0); PLATELET COUNT AUTOMATED 288 10*3/uL (130-400); RED BLOOD COUNT 3.28 10*6/uL (4.10-5.10); RED CELL DISTRI WIDTH 15.1 % (0-14.5); WHITE BLOOD COUNT 6.1 10*3/uL (4.8-10.8)
[2023-05-02 13:22] LABS: BILIRUBIN Negative (Negative); BLOOD 1+ (Negative); CLARITY Turbid (Clear); COLOR Yellow (Yellow); GLUCOSE Negative (Negative); KETONE Negative (Negative); LEUKO ESTERASE 3+ (Negative); NITRITE Negative (Negative); PH 6.5 (4.5-8.0); UROBILINOGEN 0.2 E.U./dl (0.0-1.0)
[2023-05-02 13:44] LABS: BACTERIA 3+; WBC TNTC wbc/hpf (0-5)
[2023-05-02 13:45] LABS: ALKALINE PHOSPHATASE 138 U/L (46-116); BUN 18 mg/dl (9-23); CHLORIDE 96 mmol/L (98-107); POTASSIUM 4.4 mmol/L (3.4-5.1); SGPT/ALT 15 U/L (5-49); TOTAL PROTEIN 6.6 gm/dL (6.0-8.0)
== END | disposition home or self-care (01) ==
LOC: LAB 12:05 → US 12:30
PROVIDERS: ATTEND Family Medicine
DX: I71.40 Abdominal aortic aneurysm, without rupture, unspecified (principal); R53.83 Other fatigue; R60.9 Edema, unspecified

== ENCOUNTER → 2023-07-05 | Outpatient (CLI) | payer MEDICARE, OTHER ==
[~2023-07-05] MED LIST changes: +ASPIRIN CHILDRE81 MG NG; +DOXYCYCLINE HY100 M3 IV; +HEPARIN 2525000 UNIT IV; +Ipratropium Brom3 ML NEB; +LASIX20 MG PO; +MELATONIN1 MG PO; +POTASSIUM CHLO20 MEQ PO; +PREMIERPRO RX ME1 GM IV; +SOLU-MEDRO40 MG/1 ML IV
[2023-07-05 15:10] LABS: BUN 18 mg/dl (9-23); CHLORIDE 106 mmol/L (98-107); POTASSIUM 4.4 mmol/L (3.4-5.1)
== END | disposition home or self-care (01) ==
LOC: LAB 14:36
PROVIDERS: ATTEND Nurse Practitioner Adult Health
DX: I51.81 Takotsubo syndrome (principal)

== ENCOUNTER → 2023-07-20 | Outpatient (CLI) | payer MEDICARE, OTHER ==
[~2023-07-20] MED LIST changes: +24 HOUR ALLER15.8 ML NAS; +ALBUTEROL INH; +BREO ELLIPTA 11 EACH INH; +CETIRIZINE HYDR10 MG PO; +DIAZEPAM5 MG PO; +ENTRESTO 24 MG1 EACH PO; +HYDROCODONE-AC1 EAC2 PO; +INCRUSE ELLI62.5 MCG INH; +KLOR-CON M2020 ME1 PO; +MONTELUKAST SOD10 MG PO; +POTASSIUM99 M7 PO; +VANCOMYCIN HCL250 MG PO; +VITAMIN D325 MCG PO
== END | disposition home or self-care (01) ==
LOC: LAB 15:29
PROVIDERS: ATTEND Family Medicine
DX: K51.019 Ulcerative (chronic) pancolitis with unspecified complications (principal)

== ENCOUNTER → 2023-08-05 | Outpatient (CLI) | payer MEDICARE, OTHER | LOC: LAB 14:54 | PROVIDERS: ATTEND Family Medicine | DX: A04.71 Enterocolitis due to Clostridium difficile, recurrent (principal) ==

== ENCOUNTER → 2023-09-16 | Outpatient (CLI) | payer MEDICARE, OTHER ==
[~2023-09-16] MED LIST changes: +DOXYCYCLINE HY100 M3 PO; +JARDIANCE10 MG PO; +METOPROLOL SUCC25 M2 PO; +TORSEMIDE20 MG PO
== END | disposition home or self-care (01) ==
LOC: RESCLI 01:37
PROVIDERS: ATTEND Internal Medicine
DX: J44.9 Chronic obstructive pulmonary disease, unspecified (principal); Z41.8 Encounter for other procedures for purposes other than remedying health state; I50.9 Heart failure, unspecified; M54.9 Dorsalgia, unspecified; Z90.49 Acquired absence of other specified parts of digestive tract; Z98.890 Other specified postprocedural states; Z82.49 Family history of ischemic heart disease and other diseases of the circulatory system; Z88.8 Allergy status to other drugs, medicaments and biological substances; Z79.899 Other long term (current) drug therapy

== ENCOUNTER → 2023-10-14 | Outpatient (CLI) | payer MEDICARE, OTHER | END | disposition home or self-care (01) | LOC: RESCLI 02:52 | PROVIDERS: ATTEND Family Medicine | DX: N39.0 Urinary tract infection, site not specified (principal); M54.9 Dorsalgia, unspecified; I50.9 Heart failure, unspecified; J44.9 Chronic obstructive pulmonary disease, unspecified; Z90.49 Acquired absence of other specified parts of digestive tract; Z98.890 Other specified postprocedural states; Z88.8 Allergy status to other drugs, medicaments and biological substances; Z79.899 Other long term (current) drug therapy ==

== ENCOUNTER → 2023-10-27 | Outpatient (CLI) | payer MEDICARE, OTHER ==
[~2023-10-27] MED LIST changes: +FUROSEMIDE20 M1 PO; +LOPERAMIDE HCL2 MG PO
== END | disposition home or self-care (01) ==
LOC: RESCLI 16:40
PROVIDERS: ATTEND Internal Medicine
DX: R19.7 Diarrhea, unspecified (principal); K21.9 Gastro-esophageal reflux disease without esophagitis; J44.9 Chronic obstructive pulmonary disease, unspecified; I11.0 Hypertensive heart disease with heart failure; I50.9 Heart failure, unspecified; E87.6 Hypokalemia; E55.9 Vitamin D deficiency, unspecified; T78.40XA Allergy, unspecified, initial encounter; Z88.8 Allergy status to other drugs, medicaments and biological substances; Z90.49 Acquired absence of other specified parts of digestive tract; Z98.890 Other specified postprocedural states; Z82.49 Family history of ischemic heart disease and other diseases of the circulatory system; Z79.899 Other long term (current) drug therapy; X58.XXXA Exposure to other specified factors, initial encounter

== ENCOUNTER → 2023-10-28 | Outpatient (CLI) | payer MEDICARE, OTHER | END | disposition home or self-care (01) | LOC: LAB 14:18 | PROVIDERS: ATTEND Student in an Organized Health Care Education/Training Program | DX: R19.7 Diarrhea, unspecified (principal) ==

== ENCOUNTER → 2023-11-04 | Outpatient (CLI) | payer MEDICARE, OTHER | END | disposition home or self-care (01) | LOC: RAD 13:22 | PROVIDERS: ATTEND Internal Medicine | DX: Z41.8 Encounter for other procedures for purposes other than remedying health state (principal); Z78.0 Asymptomatic menopausal state ==

== ENCOUNTER → 2024-01-23 | Outpatient (CLI) | payer MEDICARE, OTHER ==
[~2024-01-23] MED LIST changes: +ALENDRONATE SOD70 M1 PO; +CALMOSEPTINE O3.5 GM T; +MELATONIN10 M2 PO; +OYSTER SHELL C1 EAC9 PO; +PERFLUTREN PROTEIN-A MICROSPHR 3 ML VIAL IV ONE; +PRILOSEC20 M1 PO; +Regadenoson 0.4 MG/5 ML SYR IV ONE; +SINGULAIR10 M1 PO
== END | disposition home or self-care (01) ==
LOC: CARD 03:07
PROVIDERS: ATTEND Internal Medicine
DX: Z01.818 Encounter for other preprocedural examination (principal); R91.8 Other nonspecific abnormal finding of lung field; R06.00 Dyspnea, unspecified; R06.02 Shortness of breath

== ENCOUNTER → 2024-01-26 | Outpatient (CLI) | payer MEDICARE, OTHER ==
[~2024-01-26] MED LIST changes: -PERFLUTREN PROTEIN-A MICROSPHR 3 ML VIAL IV ONE; -Regadenoson 0.4 MG/5 ML SYR IV ONE
[2024-01-26 14:47] LABS: BASO # 0.1 10*3/uL (0.0-0.1); BASO % 0.7 % (0.0-1.0); EOS # 0.6 10*3/uL (0.0-0.4); EOS % 7.9 % (1.0-4.0); HEMATOCRIT 31.4 % (37.0-47.0); MEAN CELL VOLUME 102.6 fl (81.0-99.0); MEAN CORPUSCULAR HGB 33.3 pg (27.0-31.0); MEAN CORPUSCULAR HGB CONC 32.5 g/dl (33.0-37.0); MEAN PLATELET VOLUME 9.2 fl (9.6-12.3); MONO # 0.7 10*3/uL (0.1-1.0); NEUT # 3.4 10*3/uL (2.3-7.9); NEUT % 45.9 % (47.0-73.0); PLATELET COUNT AUTOMATED 402 10*3/uL (130-400); RED BLOOD COUNT 3.06 10*6/uL (4.10-5.10); WHITE BLOOD COUNT 7.5 10*3/uL (4.8-10.8)
[2024-01-26 15:00] LABS: BUN 19 mg/dl (9-23); CHLORIDE 100 mmol/L (98-107); POTASSIUM 3.8 mmol/L (3.4-5.1)
== END | disposition home or self-care (01) ==
LOC: CT 14:00
PROVIDERS: Internal Medicine; ATTEND Specialist
DX: R91.8 Other nonspecific abnormal finding of lung field (principal); R19.7 Diarrhea, unspecified

== ENCOUNTER → 2024-01-30 | Outpatient (CLI) | payer MEDICARE, OTHER | END | disposition home or self-care (01) | LOC: LAB 16:42 | PROVIDERS: ATTEND Family Medicine | DX: R19.7 Diarrhea, unspecified (principal) ==